=== PATIENT | male | born 1935 | race Caucasian/White ===

== ENCOUNTER 2020-04-14 11:59 | Inpatient (IN) | payer MEDICARE, BC ==
[~2020-04-14] VITALS: Ht 167.6 cm; Wt 88.5 kg
[2020-04-14 14:39] VITALS: BP 133/70
[2020-04-14] MEDS ORDERED: MAGNESIUM HYDROXIDE 2,400 MG/30 ML ORAL.SUSP. PO PRN (15:00)
[2020-04-14] MEDS ORDERED: METHYL SALICYLATE/MENTHOL TOPICAL OINTMENT 57GM TUBE. TP PRN (15:00)
[2020-04-14] MEDS ORDERED: ACETAMINOPHEN 325 MG TABLET PO PRN (15:00)
[2020-04-14] MEDS ORDERED: MAG HYDROX/AL HYDROX/SIMETH 30 ML ORAL.SUSP PO PRN (15:00)
[2020-04-14] MEDS ORDERED: COLCHICINE 0.6 MG TABLET. PO PRN (15:30)
[2020-04-14] MEDS ORDERED: DICLOFENAC SODIUM 1% TOPICAL GEL 100GM TUBE. TP PRN (15:30)
[2020-04-14] MEDS ORDERED: NITROGLYCERIN SUBLINGUAL 0.4 MG BOTTLE OF 25. SL PRN (15:30)
[2020-04-14] MEDS ORDERED: LEXAPRO20 MG PO (15:59)
[2020-04-14] MEDS ORDERED: ARIP2TAB35 PO (16:13)
[2020-04-14] MEDS ORDERED: OMEG-33 PO (16:13)
[2020-04-14] MEDS ORDERED: LEVO100T5 PO (16:13)
[2020-04-14] MEDS ORDERED: UBID10CA5 PO (16:13)
[2020-04-14] MEDS ORDERED: ASPI-889 PO (16:13)
[2020-04-14] MEDS ORDERED: CHLO25TA9 PO (16:13)
[2020-04-14] MEDS ORDERED: BUPR150T15 PO (16:13)
[2020-04-14] MEDS ORDERED: AMLO-187 PO (16:13)
[2020-04-14] MEDS ORDERED: METO100T7 PO (16:13)
[2020-04-14] MEDS ORDERED: ALLO100T PO (16:13)
[2020-04-14] MEDS ORDERED: CLOP75TA PO (16:13)
[2020-04-14] MEDS ORDERED: FINA5TAB4 PO (16:13)
[2020-04-14] MEDS ORDERED: LOSA100T14 PO (16:13)
[2020-04-14] MEDS ORDERED: AZEL137S3 NS (16:13)
[2020-04-14 18:19] LABS: ALBUMIN 3.6 g/dL (3.4-5.0); ALBUMIN/GLOBULIN RATIO 0.8 (1.0-1.7); CALCIUM 8.7 mg/dL (8.5-10.1); CREATININE 1.8 mg/dL (0.7-1.3); GFR 36.3; MAGNESIUM 2.1 mg/dL (1.8-2.4); POTASSIUM 4.2 mmol/L (3.5-5.1); TOTAL BILIRUBIN 0.3 mg/dL (0.2-1.0); TOTAL PROTEIN 8.1 g/dL (6.4-8.2)
[2020-04-14 18:20] LABS: BASO % 1 % (0-3); EOS # 0.1 x10^3/uL (0.0-0.7); EOS % 2 % (0-3); HEMATOCRIT 35.6 % (39.0-53.0); HEMOGLOBIN 11.9 g/dL (13.0-17.5); LYMPH # 1.3 x10^3/uL (1.0-4.8); LYMPH % 19 % (24-48); MEAN CORPUSCULAR HEMOGLOBIN 34 pg (25-35); MEAN CORPUSCULAR HGB CONC 34 g/dL (31-37); MEAN CORPUSCULAR VOLUME 101 fL (79-100); MONO # 0.5 x10^3/uL (0.0-1.1); MONO % 7 % (0-9); NEUT # 4.9 x10^3uL (1.8-7.7); NEUT % 72 % (31-73); PLATELET COUNT 203 x10^3/uL (140-400); RED BLOOD COUNT 3.54 x10^6/uL (4.30-5.70); RED CELL DISTRIBUTION WIDTH 14.4 % (11.5-14.5); WHITE BLOOD COUNT 6.8 x10^3/uL (4.0-11.0)
--- NOTE | 2020-04-14 20:22 | EKG ---
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
[2020-04-14] MEDS: ALLOPURINOL 100 MG TABLET. PO SCH (20:51)
[2020-04-14] MEDS: clonazePAM 0.5 MG TABLET PO SCH (20:51)
[2020-04-14] MEDS: CLOPIDOGREL BISULFATE 75 MG TABLET PO SCH (20:51)
[2020-04-14] MEDS: MELATONIN 3 MG TABLET PO PRN (20:51)
[2020-04-14] MEDS ORDERED: QUEtiapine 50 MG TABLET. PO SCH (21:00)
[2020-04-14] MEDS: AZELASTINE NASAL SPRAY 30ML BOTTLE. NS SCH (21:00)
--- NOTE | 2020-04-14 21:08 | PDOC ---
Exam Note: Miguel Note: Please also refer to the separate dictated note~for this date of service dictated separately.~Patient seen individually. Discussed the patient with Nursing staff reviewed the chart.~Reviewed interim history and current functioning. Reviewed vital signs,~Labs/ Radiology~and current medications noted below. Continue current treatment with the changes noted in the dictated addendum note Assessment: Vital Signs/I&O: Vital Signs Date Time Temp Pulse Resp B/P (MAP) Pulse Ox O2 Delivery O2 Flow Rate FiO2 04/14/20 14:39 97.5 63 17 133/70 (91) 100 Labs: Laboratory Tests Test 04/14/20 17:41 White Blood Count 6.8 x10^3/uL (4.0-11.0) Red Blood Count 3.54 x10^6/uL (4.30-5.70) L Hemoglobin 11.9 g/dL (13.0-17.5) L Hematocrit 35.6 % (39.0-53.0) L Mean Corpuscular Volume 101 fL (79-100) H Mean Corpuscular Hemoglobin 34 pg (25-35) Mean Corpuscular Hemoglobin Concent 34 g/dL (31-37) Red Cell Distribution Width 14.4 % (11.5-14.5) Platelet Count 203 x10^3/uL (140-400) Neutrophils (%) (Auto) 72 % (31-73) Lymphocytes (%) (Auto) 19 % (24-48) L Monocytes (%) (Auto) 7 % (0-9) Eosinophils (%) (Auto) 2 % (0-3) Basophils (%) (Auto) 1 % (0-3) Neutrophils # (Auto) 4.9 x10^3uL (1.8-7.7) Lymphocytes # (Auto) 1.3 x10^3/uL (1.0-4.8) Monocytes # (Auto) 0.5 x10^3/uL (0.0-1.1) Eosinophils # (Auto) 0.1 x10^3/uL (0.0-0.7) Basophils # (Auto) 0.0 x10^3/uL (0.0-0.2) D-Dimer (Nara) 1.16 mg/L (0.00-0.50) H Sodium Level 137 mmol/L (136-145) Potassium Level 4.2 mmol/L (3.5-5.1) Chloride Level 104 mmol/L (98-107) Carbon Dioxide Level 25 mmol/L (21-32) Anion Gap 8 (6-14) Blood Urea Nitrogen 23 mg/dL (8-26) Creatinine 1.8 mg/dL (0.7-1.3) H Estimated GFR (Cockcroft-Gault) 36.3 BUN/Creatinine Ratio 13 (6-20) Glucose Level 129 mg/dL (70-99) H Calcium Level 8.7 mg/dL (8.5-10.1) Magnesium Level 2.1 mg/dL (1.8-2.4) Total Bilirubin 0.3 mg/dL (0.2-1.0) Aspartate Amino Transferase (AST) 28 U/L (15-37) Alanine Aminotransferase (ALT) 32 U/L (16-63) Alkaline Phosphatase 83 U/L (46-116) Total Protein 8.1 g/dL (6.4-8.2) Albumin 3.6 g/dL (3.4-5.0) Albumin/Globulin Ratio 0.8 (1.0-1.7) L Current Medications: Meds: Current Medications Medications (Trade) Dose Ordered Sig/Afshin Route PRN Reason Start Time Stop Time Status Last Admin Dose Admin Allopurinol (Zyloprim) 100 mg HS PO 04/14/20 21:00 04/14/20 20:51 Clopidogrel Bisulfate (Plavix) 75 mg QHS PO 04/14/20 21:00 04/14/20 20:51 Melatonin (Melatonin) 3 mg PRN QHS PRN PO INSOMNIA 04/14/20 15:30 04/14/20 20:51 Clonazepam (KlonoPIN) 0.25 mg BID PO 04/14/20 21:00 04/14/20 20:51 I have reviewed the current psychotropics carefully including drug interactions. Risk benefit ratio favors no change other than as noted in my dictated progress note. Diagnosis: Problems: (1) Major neurocognitive disorder RENITA SAGASTUME MD Apr 14, 2020 21:08
--- NOTE | 2020-04-14 22:29 | HP ---
ADMIT DATE: 04/14/2020 PSYCHIATRIC ADMISSION HISTORY/EVALUATION On telehealth services. IDENTIFYING DATA: The patient is an 84-year-old male referred to us from [facility], a small residential facility by his primary care physician on account of worsening confusion within the context of his diagnosis of major neurocognitive disorder, Alzheimer vascular with delusion, depression, behavioral disturbance. The patient has reportedly attempted to elope from the home, is delusional, paranoid, thinks he is being held prisoner. He has been threatening to harm the staff, agitated, exit seeking, having marked insomnia and sundowning. Behaviors have been worsening, unmanageable at the facility regardingthis referral. He has failed outpatient psychiatric interventions. CHIEF COMPLAINT: "No." HISTORY OF PRESENT ILLNESS: The patient has a history of dementia, Alzheimer's vascular type. He has been residing at the above facility for some time, recently getting more confused, agitated. He has had sleep changes, marked paranoia, significant mood lability, disruptive behaviors that have been dangerous, unmanageable. PAST PSYCHIATRIC HISTORY: As above. MEDICAL HISTORY: Positive for hypertension, stage 3 chronic kidney disease, hyperlipidemia, pacemaker in place, hypothyroidism, history of pneumonia, REM, sleep disorder, polymyalgia rheumatica, nasal lesion, myalgia, gout, gait instability, prediabetes, coronary artery disease, history of NH, history of sepsis, BPH, oropharyngeal dysphagia, chronic right hip pain, malnutrition, history of back surgeries, total hip replacement. ACCU-CHEKS: None. DIET: Cardiac. Takes medications whole, ambulates independently. CURRENT PSYCHOTROPICS: Lexapro 20 mg a day, Seroquel 25 mg at bedtime, Abilify 2 mg a day, Wellbutrin-XL 150 mg a day, melatonin 3 mg at bedtime, Klonopin 0.25 mg b.i.d. FAMILY HISTORY: Noncontributory. SOCIAL HISTORY: No history of alcohol, drug abuse, physical, sexual or elder abuse. He is not known to be a perpetrator. REACTION TO HOSPITALIZATION: The patient oblivious of this. ASSETS: Supportive family, stable living at the above facility. REVIEW OF SYSTEMS: No CV, , pulmonary, eye, ENT system symptoms on review. Reliability poor. MENTAL STATUS EXAMINATION: The patient is oriented to himself. Insight, judgment, recent and remote memory, attention, concentration, fund of knowledge poor, consistent with his diagnosis. IMPRESSION: Major neurocognitive disorder, Alzheimer vascular with delusion, depression, behavioral disturbance; anxiety disorder, unspecified; impulse control disorder, unspecified. Rest unchanged from admission noted above. PLAN: Admit to Geropsychiatry Unit at [facility]. I will see the patient daily individually from a psychiatric standpoint. Medical followup per Dr. Kraus/Dr. Gottlieb. Continue the patient on his current psychotropics. Consider tapering the Klonopin since it could be causing paradoxical disinhibition as the benzodiazepine. Consider Depakote as a mood stabilizer. We will consider other options as clinically indicated post baseline assessment. ESTIMATED LENGTH OF STAY: 10-12 days. DISPOSITION: Plans back to [facility] when stable. MAN Rosio SAGASTUME MD DR: DALJIT/bruce JOB#: [id number] / [id number]
[2020-04-15 01:09] LABS: HEMOGLOBIN A1C 6.2 % (4.8-5.6)
[2020-04-15] MEDS: LEVOTHYROXINE 100 MCG TABLET PO SCH (05:37)
[2020-04-15 05:56] LABS: BILIRUBIN,URINE NEG (NEG); CLARITY,URINE CLEAR; COLOR,URINE YELLOW; GLUCOSE,URINE NEG (NEG); UROBILINOGEN,URINE 0.2 mg/dL (0.2 mg/dL)
[2020-04-15 05:57] LABS: BACTERIA,URINE 0 /HPF (0-FEW); NITRITE,URINE NEG (NEG); RBC,URINE 0 /HPF (0-2); SQUAMOUS EPITHELIAL CELL,UR OCC /LPF; WBC,URINE OCC /HPF (0-4)
[2020-04-15 06:18] VITALS: BP 170/90
[2020-04-15] MEDS: AZELASTINE NASAL SPRAY 30ML BOTTLE. NS SCH ×2 (09:00→21:00)
[2020-04-15] MEDS: FINASTERIDE 5 MG TABLET. PO SCH (09:11)
[2020-04-15] MEDS: OMEGA-3 FATTY ACIDS/FISH OIL 1,000 MG CAPSULE. PO SCH (09:11)
[2020-04-15] MEDS: ARIPiprazole 2 MG TABLET PO SCH (09:11)
[2020-04-15] MEDS: ASPIRIN CHEWABLE 81 MG TABLET. PO SCH (09:11)
[2020-04-15] MEDS: clonazePAM 0.5 MG TABLET PO SCH ×2 (09:12→21:15)
[2020-04-15] MEDS: amLODIPine BESYLATE 10 MG TABLET PO SCH (09:12)
[2020-04-15] MEDS: buPROPion XL 150 MG TAB.ER.24H PO SCH (09:12)
[2020-04-15] MEDS: METOPROLOL SUCC 24HR ER 50 MG TAB.ER.24H. PO SCH (09:12)
[2020-04-15] MEDS: UBIDECARENONE 50 MG CAPSULE. PO SCH (09:12)
[2020-04-15] MEDS: LOSARTAN 50 MG TABLET. PO SCH (09:12)
[2020-04-15] MEDS: CHLORTHALIDONE 25 MG TABLET PO SCH (09:21)
--- NOTE | 2020-04-15 12:28 | TX PLAN ---
Interdisciplinary Tx Plan Admission Information Apr 14, 2020 at 14:03 Legal Status (on Admission): Voluntary DPOA/Guardian Name: -Marlene Carpenter and Son-Damian "Elias or Kaylee Carpenter Contact Phone Number: Tanner [phone] SonWill [phone] Other Contact Name: Cora Brooks Other Contact Verified Code Status: DNR Allergies: Coded Allergies: No Known Drug Allergies (Unverified , 04/14/20) Diagnoses Primary Diagnosis: Major neurocognitive disorder, Alzheimer vascular with delusion, depression, behavioral disturbance; anxiety disorder, unspecified; impulse control disorder, unspecified. Reasons for Admission: Aggressive, Delusions, Agitated, Sig. Change Sleep, Angry, Combative, Confusion/Disoriented, Poor impulse control Problem in Patient's Words: Per facility pt has had a couple of falls, has threatening behavior toward other residents and staff. He has been exit seeking. Pt has eloped from his facility and the police brought him back. Per pt , Marlene. Pt is mad at her and their son, Elias, for putting him in a facility. He is very aggressive and thinks that everyone is kidnapped and is in shelter. Additional Admission Comments: Per [facility]ak record, pt thinks he has been kidnapped and is in shelter. He is paranoid, delusional. He eloped from the facility in which he lives and police brought him back. Pt has been threatening harm to staff. He is agitated, exit seeking, has insomnia, and sundowns. Problems Active Problems: Aggression, delusions, agitation, combative, confused Inactive Problems: None noted at this time. Pt Strengths/Limitations Ability for [place]: Poor Cognitive Functioning/Ability: Poor Communication Skills/Ability: Fair Financial Resources: Good Insight/Judgement: Poor Intellectual Ability: Good Physical Health: Fair Social Skills: Fair Stability in Family: Excellent Stability in School/Work: Good Verbal Skills: Good Discharge Criteria Discharge Criteria: Able meet basic life need, Adequate arrangements @DC, Adequate self-care, Verbal commit med comply, Improved behavior Other Discharge Comments: None noted at this time. Preliminary Discharge Plan Preliminary DC Plan: Memory Care Special Precautions Fall Risk: High Initial D/C Plan Pt plan is to return to [facility] memory care facility. Identified Discharge Needs: Follow-up with PCP Currently Utilized Resources Currently Utilized Resources/P: PCP is Dr. Fadi Garrison DPOA is Marlene and alternate son Damian alfred "Elias or Fernando" Financial DPOA is dtr Miladis Living facility is [facility]; contact is Cora Brooks Referrals Community Resources: None noted at this time Identified Problems/Hx/Goals Objectives/Short-Term Goals Short Term Goals: Control abnormal behavior, Dec. Aggression, Dec. Hallucination/Delus, Dec. Symp. Depression, Medication Stabilization, Monitor Med Effects, Prevent Deterioration, Promote Coping Skill Short Term Goals in Patient's: Reduce aggression and delusions. Improve or preserve quality of life. Interventions/Frequency Staff Interventions/Frequency&: Psychiatry to assess pt three times per week for medication management. Nursing to assess behaviors, monitor medications, and complete 15 minute checks daily. Social work to see pt at least twice weekly to aid in return to placement. Activities to encourage pt to participate in group activities daily. History Vocational History: After pt graduated high school, he moved to [place] and worked for the [employer] team. 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 Education: Four years of college. Pt attended [employer] for four years and played football there. Community Follow-up PCP Community Provider/Family Inpu: Marlene, /DPOA, and Elias, son/DPOA, are actively involved with pt care and would like updates a couple times per week. Treatment Plan Explained Patient/Retouching Operator had this treatment plan explained to him/her as indicated by the signature below and has been given the opportunity to ask questions and make suggestions: Date: Patient/Retouching Operator Signature: GIORGIO PLAZA Apr 15, 2020 12:28
--- NOTE | 2020-04-15 16:30 | RAD ---
STUDY: CT head without contrast INDICATION: Baseline establishment. COMPARISON: None. TECHNIQUE: Axial CT imaging through the head without the use of intravenous contrast. Sagittal and co kiesha reformats were obtained. One or more of the following individualized dose reduction techniques were utilized for this examinat ion: 1. Automated exposure control 2. Adjustment of the mA and/or kV according to patient size 3. Use of iterative reconstruction technique. FINDINGS: No acute intracranial hemorrhage. Arizmendi-white matter differentiation is maintained and the deep arizmendi n uclei are well delineated. No localized mass effect, midline shift or hydrocephalus. Parenchymal volume loss with a component of ex vacuo ventricular prominence. White matter findings mo st often seen in the setting of chronic microvascular ischemic change. Intracranial calcific atherosc lerosis. Unremarkable scalp and orbits. Trace maxillary sinus mucosal thickening without layering fluid. No si gnificant mastoid air cell opacification. Intact calvarium. IMPRESSION: 1. No acute intracranial abnormality by CT. 2. Chronic/senescent observations detailed in the body the report. Electronically signed by: DEBBIE PADRON MD (04/15/2020 4:28 PM) [id number]
[2020-04-15 16:55] VITALS: BP 135/91
--- NOTE | 2020-04-15 17:39 | CONS ---
DATE OF CONSULTATION: 04/15/2020 ATTENDING PHYSICIAN: Dr. Perez. HISTORY OF PRESENT ILLNESS: We are asked to see this gentleman for medical consultation. 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 He moved to [place] in 1964 when the [facility] [place] [employer]. He has been doing fairly well, but he has been in decline last February. He was admitted to a local snf. His still lives in the house that he grew up, his son and I went to high school together. He is very alert and cooperative, but he has definite cognitive issues. He is admitted then for major neurocognitive disorder. PAST MEDICAL HISTORY: Significant for essential hypertension, hypothyroidism and cognitive issues. CURRENT MEDICATIONS: Include allopurinol, amlodipine, Abilify, aspirin, bupropion, chlorthalidone, Plavix, citalopram, finasteride, Synthroid, losartan, metoprolol, omega 3 fish oil and CoQ10. ALLERGIES: He has no recorded drug allergies. SOCIAL HISTORY: Social drinker. He does not smoke. OTHER MEDICAL HISTORY: Includes coronary artery disease and permanent pacemaker. FAMILY HISTORY: Unobtainable. REVIEW OF SYSTEMS: Unobtainable due to the patient's confusion. He has been quite paranoid, delusional, thinks he is being kidnapped. All other systems reviewed and turned to be negative. PHYSICAL EXAMINATION: GENERAL: When I saw him, this is a pleasant elderly gentleman. He walks with the help of a walker independently. INITIAL VITAL SIGNS: Showed a blood pressure of 133/70, pulse is 63 and regular, temperature 97.5 degrees Fahrenheit, oxygen saturation 100% on room air. HEENT: The head is without trauma. Pupils are reactive. Sclerae nonicteric. The oropharynx is clear. NECK: Supple, no bruits identified. LUNGS: Good breath sounds, otherwise clear. CARDIOVASCULAR: Showed regular heart tones. No gallops. ABDOMEN: Soft, no guarding, rebound tenderness. EXTREMITIES: Showed no cyanosis or edema. NEUROLOGIC: Pleasantly confused. Speech is fluent. He is fully ambulatory. We could not assess the rest of the neurologic exam due to the patient's inability to comprehend the orders. PERTINENT LABORATORY STUDIES: Admission hemoglobin was 11.9 g/dL with white count 6800. Electrolytes within range. Creatinine is slightly elevated at 1.8 mg/dL. Hemoglobin A1c 6.2. ASSESSMENT: 1. This 84-year-old gentleman, retired [employer] general sales manager has profound dementia. 2. Neurocognitive deficit. 3. Some delusional behavior with paranoia. 4. Essential hypertension. 5. Hypothyroidism, on replacement. RECOMMENDATIONS: 1. The patient is stable from the medical standpoint. 2. I reviewed his home medication. We should continue this without any changes. Thank you again for asking me to see this patient for medical consultation. We will certainly follow with you closely during his inpatient stay. NICK ROY MD DR: CHRISS/bruce JOB#: [id number] / [id number] RENITA Foster MD
[2020-04-15 18:43] LABS: THYROID STIM HORMONE (TSH) 3.229 uIU/mL (0.358-3.740)
[2020-04-15] MEDS: ALLOPURINOL 100 MG TABLET. PO SCH (21:15)
[2020-04-15] MEDS: CLOPIDOGREL BISULFATE 75 MG TABLET PO SCH (21:15)
--- NOTE | 2020-04-15 21:18 | PDOC ---
Exam Note: Miguel Note: Please also refer to the separate dictated note~for this date of service dictated separately.~Patient seen individually. Discussed the patient with Nursing staff reviewed the chart.~Reviewed interim history and current functioning. Reviewed vital signs,~Labs/ Radiology~and current medications noted below. Continue current treatment with the changes noted in the dictated addendum note Assessment: Vital Signs/I&O: Vital Signs Date Time Temp Pulse Resp B/P (MAP) Pulse Ox O2 Delivery O2 Flow Rate FiO2 04/15/20 16:55 96.3 78 20 135/91 (106) 100 Room Air I & O 04/14/20 04/14/20 04/15/20 14:59 22:59 06:59 Intake Total 120 ml 120 ml Balance 120 ml 120 ml Labs: Laboratory Tests Test 04/15/20 05:30 04/15/20 08:00 Urine Collection Type Unknown Urine Color Yellow Urine Clarity Clear Urine pH 5.5 Urine Specific [place] 1.015 Urine Protein Neg (NEG-TRACE) Urine Glucose (UA) Neg mg/dL (NEG) Urine Ketones (Stick) Neg mg/dL (NEG) Urine Blood Neg (NEG) Urine Nitrite Neg (NEG) Urine Bilirubin Neg (NEG) Urine Urobilinogen Dipstick 0.2 mg/dL (0.2 mg/dL) Urine Leukocyte Esterase Neg (NEG) Urine RBC 0 /HPF (0-2) Urine WBC Occ /HPF (0-4) Urine Squamous Epithelial Cells Occ /LPF Urine Bacteria 0 /HPF (0-FEW) Glucose (Fingerstick) 96 mg/dL (70-99) Current Medications: Meds: Laboratory Tests Test 04/15/20 05:30 04/15/20 08:00 Urine Collection Type Unknown Urine Color Yellow Urine Clarity Clear Urine pH 5.5 Urine Specific [place] 1.015 Urine Protein Neg Urine Glucose (UA) Neg mg/dL Urine Ketones (Stick) Neg mg/dL Urine Blood Neg Urine Nitrite Neg Urine Bilirubin Neg Urine Urobilinogen Dipstick 0.2 mg/dL Urine Leukocyte Esterase Neg Urine RBC 0 /HPF Urine WBC Occ /HPF Urine Squamous Epithelial Cells Occ /LPF Urine Bacteria 0 /HPF Glucose (Fingerstick) 96 mg/dL Current Medications Medications (Trade) Dose Ordered Sig/Afshin Route PRN Reason Start Time Stop Time Status Last Admin Dose Admin Acetaminophen (Tylenol) 650 mg PRN Q6HRS PRN PO MILD PAIN / TEMP > 100.3'F 04/14/20 15:00 Multi-Ingredient Ointment (Analgesic [place]) 1 aaron PRN QID PRN TP MUSCLE PAIN 04/14/20 15:00 Al Hydroxide/Mg Hydroxide (Mylanta Plus Xs) 15 ml PRN AFTMEALHC PRN PO DYSPEPSIA 04/14/20 15:00 Magnesium Hydroxide (Milk Of Magnesia) 2,400 mg PRN QHS PRN PO CONSTIPATION 04/14/20 15:00 Allopurinol (Zyloprim) 100 mg HS PO 04/14/20 21:00 04/15/20 21:15 Amlodipine Besylate (Norvasc) 10 mg DAILY PO 04/15/20 09:00 04/15/20 09:12 Aripiprazole (Abilify) 2 mg DAILY PO 04/15/20 09:00 04/15/20 09:11 Aspirin (Aspirin Chewable) 81 mg DAILYWBKFT PO 04/15/20 08:00 04/15/20 09:11 Azelastine HCl (Astelin) 2 spray BID NS 04/14/20 21:00 04/15/20 21:00 Bupropion HCl (Wellbutrin Xl) 150 mg DAILY PO 04/15/20 09:00 04/15/20 09:12 Chlorthalidone (Thalitone) 25 mg DAILY PO 04/15/20 09:00 04/15/20 09:21 Clopidogrel Bisulfate (Plavix) 75 mg QHS PO 04/14/20 21:00 04/15/20 21:15 Coenzyme Q10 (Coenzyme Q10) 50 mg DAILY PO 04/15/20 09:00 04/15/20 09:12 Finasteride (Proscar) 5 mg DAILY PO 04/15/20 09:00 04/15/20 09:11 Levothyroxine Sodium (Synthroid) 100 mcg DAILY06 PO 04/15/20 06:00 04/15/20 05:37 Losartan Potassium (Cozaar) 50 mg DAILY PO 04/15/20 09:00 04/15/20 09:12 Metoprolol Succinate (Toprol Xl) 100 mg DAILY PO 04/15/20 09:00 04/15/20 09:12 Fish Oil (Fish Oil) 1,000 mg DAILY PO 04/15/20 09:00 04/15/20 09:11 Quetiapine Fumarate (SEROquel) 50 mg QHS PO 04/14/20 21:00 04/14/20 16:15 DC Vitamin D (Vitamin D3) 50,000 unit WEEKLY PO 04/21/20 09:00 Colchicine (Colcrys) 0.6 mg PRN DAILY PRN PO for GOUT pain 04/14/20 15:30 Diclofenac Sodium (Voltaren) 1 aaron PRN QID PRN TP PAIN 04/14/20 15:30 Nitroglycerin (Nitrostat) 0.4 mg PRN Q5MIN PRN SL CHEST PAIN 04/14/20 15:30 Melatonin (Melatonin) 3 mg PRN QHS PRN PO INSOMNIA 04/14/20 15:30 04/14/20 20:51 Clonazepam (KlonoPIN) 0.25 mg BID PO 04/14/20 21:00 04/15/20 15:46 DC 04/15/20 09:12 Clonazepam (KlonoPIN) 0.25 mg QHS PO 04/15/20 21:00 04/17/20 23:00 04/15/20 21:15 Sertraline HCl (Zoloft) 50 mg DAILY PO 04/16/20 09:00 Current Medications Medications (Trade) Dose Ordered Sig/Afshin Route PRN Reason Start Time Stop Time Status Last Admin Dose Admin Amlodipine Besylate (Norvasc) 10 mg DAILY PO 04/15/20 09:00 04/15/20 09:12 Aripiprazole (Abilify) 2 mg DAILY PO 04/15/20 09:00 04/15/20 09:11 Aspirin (Aspirin Chewable) 81 mg DAILYWBKFT PO 04/15/20 08:00 04/15/20 09:11 Bupropion HCl (Wellbutrin Xl) 150 mg DAILY PO 04/15/20 09:00 04/15/20 09:12 Chlorthalidone (Thalitone) 25 mg DAILY PO 04/15/20 09:00 04/15/20 09:21 Coenzyme Q10 (Coenzyme Q10) 50 mg DAILY PO 04/15/20 09:00 04/15/20 09:12 Finasteride (Proscar) 5 mg DAILY PO 04/15/20 09:00 04/15/20 09:11 Levothyroxine Sodium (Synthroid) 100 mcg DAILY06 PO 04/15/20 06:00 04/15/20 05:37 Losartan Potassium (Cozaar) 50 mg DAILY PO 04/15/20 09:00 04/15/20 09:12 Metoprolol Succinate (Toprol Xl) 100 mg DAILY PO 04/15/20 09:00 04/15/20 09:12 Fish Oil (Fish Oil) 1,000 mg DAILY PO 04/15/20 09:00 04/15/20 09:11 Clonazepam (KlonoPIN) 0.25 mg QHS PO 04/15/20 21:00 04/17/20 23:00 04/15/20 21:15 I have reviewed the current psychotropics carefully including drug interactions. Risk benefit ratio favors no change other than as noted in my dictated progress note. Diagnosis: Problems: (1) Dementia in Alzheimer's disease with delusions (2) Dementia in Alzheimer's disease with depression (3) Dementia of the Alzheimer's type with early onset with behavioral disturbance (4) Dementia, vascular, with delusions (5) Dementia, vascular, with depression (6) Anxiety disorder, unspecified (7) Impulse control disorder, unspecified (8) Major neurocognitive disorder RENITA SAGASTUME MD Apr 15, 2020 21:18
[2020-04-16] MEDS: LEVOTHYROXINE 100 MCG TABLET PO SCH (05:08)
[2020-04-16 06:19] VITALS: BP 128/85
--- NOTE | 2020-04-16 08:00 | PDOC ---
Exam Note: Miguel Note: This note is a late entry for 04/15/2020 covers elements not covered in my initial note. Subjective: The patient was reviewed on telehealth rounds in the evening of 04/15/2020. Discussed with nursing staff, reviewed the chart. He slept 5-3/4 hours previous night. The patient was also staffed at treatment team meeting with entire team in the morning with Damaris Dunn, Evy Garg (social service staff) [place], activity therapy, and Marilee BAY. We have reviewed the patients history at some length and he has had symptoms of progressive memory deficits. 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 He went to high school in [place], [place], then attended [employer] and played football and then retired 30 years ago after being a manager hotel for the [employer]. 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 We will consider having neuropsychological testing with Dr. Wang to further define his cognitive deficits. CT head clinically insignificant. Review of Systems: No CV, , pulmonary, eye, ENT system symptoms on review. Reliability poor. Mental Status Exam: The patient is oriented to himself. He is paranoid, somewhat drowsy at times. Insight and judgment, recent and remote memory, attention and concentration, fund of knowledge is poor consistent with his diagnosis. Laboratory Data: Reviewed. Impression: Major neurocognitive disorder Alzheimer vascular with delusion, depression, behavioral disturbance. Anxiety disorder unspecified. Impulse control disorder unspecified. Plan: Change Celexa to Zoloft 50 mg a day. Maintain Seroquel, Abilify, Wellbutrin, melatonin, Klonopin. We will go ahead taper and stop the Klonopin. Adjust further as clinically indicated. Assessment: Vital Signs/I&O: Vital Signs Date Time Temp Pulse Resp B/P (MAP) Pulse Ox O2 Delivery O2 Flow Rate FiO2 04/16/20 06:19 97.8 76 24 128/85 (99) 94 04/15/20 16:55 Room Air I & O 04/15/20 04/15/20 04/16/20 14:59 22:59 06:59 Intake Total 600 ml 480 ml Balance 600 ml 480 ml Labs: Laboratory Tests Test 04/15/20 08:00 04/16/20 07:17 Glucose (Fingerstick) 96 mg/dL (70-99) 86 mg/dL (70-99) Current Medications: Meds: Current Medications Medications (Trade) Dose Ordered Sig/Afshin Route PRN Reason Start Time Stop Time Status Last Admin Dose Admin Amlodipine Besylate (Norvasc) 10 mg DAILY PO 04/15/20 09:00 04/15/20 09:12 Aripiprazole (Abilify) 2 mg DAILY PO 04/15/20 09:00 04/15/20 09:11 Aspirin (Aspirin Chewable) 81 mg DAILYWBKFT PO 04/15/20 08:00 04/15/20 09:11 Bupropion HCl (Wellbutrin Xl) 150 mg DAILY PO 04/15/20 09:00 04/15/20 09:12 Chlorthalidone (Thalitone) 25 mg DAILY PO 04/15/20 09:00 04/15/20 09:21 Coenzyme Q10 (Coenzyme Q10) 50 mg DAILY PO 04/15/20 09:00 04/15/20 09:12 Finasteride (Proscar) 5 mg DAILY PO 04/15/20 09:00 04/15/20 09:11 Losartan Potassium (Cozaar) 50 mg DAILY PO 04/15/20 09:00 04/15/20 09:12 Metoprolol Succinate (Toprol Xl) 100 mg DAILY PO 04/15/20 09:00 04/15/20 09:12 Fish Oil (Fish Oil) 1,000 mg DAILY PO 04/15/20 09:00 04/15/20 09:11 Clonazepam (KlonoPIN) 0.25 mg QHS PO 04/15/20 21:00 04/17/20 23:00 04/15/20 21:15 I have reviewed the current psychotropics carefully including drug interactions. Risk benefit ratio favors no change other than as noted in my dictated progress note. Diagnosis: Problems: (1) Major neurocognitive disorder (2) Impulse control disorder, unspecified (3) Anxiety disorder, unspecified (4) Dementia, vascular, with depression (5) Dementia, vascular, with delusions (6) Dementia in Alzheimer's disease with depression (7) Dementia in Alzheimer's disease with delusions (8) Dementia of the Alzheimer's type with early onset with behavioral disturbance RENITA SAGASTUME MD Apr 16, 2020 08:00
[2020-04-16] MEDS: buPROPion XL 150 MG TAB.ER.24H PO SCH (09:58)
[2020-04-16] MEDS: LOSARTAN 50 MG TABLET. PO SCH (09:58)
[2020-04-16] MEDS: CHLORTHALIDONE 25 MG TABLET PO SCH (09:58)
[2020-04-16] MEDS: OMEGA-3 FATTY ACIDS/FISH OIL 1,000 MG CAPSULE. PO SCH (09:58)
[2020-04-16] MEDS: amLODIPine BESYLATE 10 MG TABLET PO SCH (10:00)
[2020-04-16] MEDS: UBIDECARENONE 50 MG CAPSULE. PO SCH (10:00)
[2020-04-16] MEDS: FINASTERIDE 5 MG TABLET. PO SCH (10:00)
[2020-04-16] MEDS: ARIPiprazole 2 MG TABLET PO SCH (10:00)
[2020-04-16] MEDS: ASPIRIN CHEWABLE 81 MG TABLET. PO SCH (10:00)
[2020-04-16] MEDS: METOPROLOL SUCC 24HR ER 50 MG TAB.ER.24H. PO SCH (10:00)
[2020-04-16] MEDS: AZELASTINE NASAL SPRAY 30ML BOTTLE. NS SCH ×2 (10:02→20:25)
[2020-04-16] MEDS: SERTRALINE 25 MG TABLET. PO SCH (10:02)
[2020-04-16 16:13] VITALS: BP 120/68
[2020-04-16 17:11] LABS: COLOR,URINE YELLOW
[2020-04-16 17:12] LABS: BACTERIA,URINE 0 /HPF (0-FEW); BILIRUBIN,URINE NEG (NEG); CLARITY,URINE CLEAR; GLUCOSE,URINE NEG (NEG); NITRITE,URINE NEG (NEG); RBC,URINE 0 /HPF (0-2); UROBILINOGEN,URINE 0.2 mg/dL (0.2 mg/dL); WBC,URINE 0 /HPF (0-4)
[2020-04-16] MEDS: CLOPIDOGREL BISULFATE 75 MG TABLET PO SCH (20:24)
[2020-04-16] MEDS: ALLOPURINOL 100 MG TABLET. PO SCH (20:24)
[2020-04-16] MEDS: clonazePAM 0.5 MG TABLET PO SCH (20:25)
--- NOTE | 2020-04-16 21:03 | PDOC ---
Exam Note: Miguel Note: Please also refer to the separate dictated note~for this date of service dictated separately.~Patient seen individually. Discussed the patient with Nursing staff reviewed the chart.~Reviewed interim history and current functioning. Reviewed vital signs,~Labs/ Radiology~and current medications noted below. Continue current treatment with the changes noted in the dictated addendum note Assessment: Vital Signs/I&O: Vital Signs Date Time Temp Pulse Resp B/P (MAP) Pulse Ox O2 Delivery O2 Flow Rate FiO2 04/16/20 16:13 97.2 60 20 120/68 (85) 98 04/15/20 16:55 Room Air I & O 04/15/20 04/15/20 04/16/20 15:00 23:00 07:00 Intake Total 600 ml 480 ml Balance 600 ml 480 ml Labs: Laboratory Tests Test 04/16/20 07:17 04/16/20 16:37 Glucose (Fingerstick) 86 mg/dL (70-99) Urine Collection Type Unknown Urine Color Yellow Urine Clarity Clear Urine pH 5.0 Urine Specific [place] 1.025 Urine Protein Neg (NEG-TRACE) Urine Glucose (UA) Neg mg/dL (NEG) Urine Ketones (Stick) Neg mg/dL (NEG) Urine Blood Neg (NEG) Urine Nitrite Neg (NEG) Urine Bilirubin Neg (NEG) Urine Urobilinogen Dipstick 0.2 mg/dL (0.2 mg/dL) Urine Leukocyte Esterase Neg (NEG) Urine RBC 0 /HPF (0-2) Urine WBC 0 /HPF (0-4) Urine Squamous Epithelial Cells None /LPF Urine Bacteria 0 /HPF (0-FEW) Current Medications: Meds: Laboratory Tests Test 04/16/20 07:17 04/16/20 16:37 Glucose (Fingerstick) 86 mg/dL Urine Collection Type Unknown Urine Color Yellow Urine Clarity Clear Urine pH 5.0 Urine Specific [place] 1.025 Urine Protein Neg Urine Glucose (UA) Neg mg/dL Urine Ketones (Stick) Neg mg/dL Urine Blood Neg Urine Nitrite Neg Urine Bilirubin Neg Urine Urobilinogen Dipstick 0.2 mg/dL Urine Leukocyte Esterase Neg Urine RBC 0 /HPF Urine WBC 0 /HPF Urine Squamous Epithelial Cells None /LPF Urine Bacteria 0 /HPF Current Medications Medications (Trade) Dose Ordered Sig/Afshin Route PRN Reason Start Time Stop Time Status Last Admin Dose Admin Acetaminophen (Tylenol) 650 mg PRN Q6HRS PRN PO MILD PAIN / TEMP > 100.3'F 04/14/20 15:00 Multi-Ingredient Ointment (Analgesic [place]) 1 aaron PRN QID PRN TP MUSCLE PAIN 04/14/20 15:00 Al Hydroxide/Mg Hydroxide (Mylanta Plus Xs) 15 ml PRN AFTMEALHC PRN PO DYSPEPSIA 04/14/20 15:00 Magnesium Hydroxide (Milk Of Magnesia) 2,400 mg PRN QHS PRN PO CONSTIPATION 04/14/20 15:00 Allopurinol (Zyloprim) 100 mg HS PO 04/14/20 21:00 04/16/20 20:24 Amlodipine Besylate (Norvasc) 10 mg DAILY PO 04/15/20 09:00 04/16/20 10:00 Aripiprazole (Abilify) 2 mg DAILY PO 04/15/20 09:00 04/16/20 17:08 DC 04/16/20 10:00 Aspirin (Aspirin Chewable) 81 mg DAILYWBKFT PO 04/15/20 08:00 04/16/20 10:00 Azelastine HCl (Astelin) 2 spray BID NS 04/14/20 21:00 04/16/20 20:25 Bupropion HCl (Wellbutrin Xl) 150 mg DAILY PO 04/15/20 09:00 04/16/20 09:58 Chlorthalidone (Thalitone) 25 mg DAILY PO 04/15/20 09:00 04/16/20 09:58 Clopidogrel Bisulfate (Plavix) 75 mg QHS PO 04/14/20 21:00 04/16/20 20:24 Coenzyme Q10 (Coenzyme Q10) 50 mg DAILY PO 04/15/20 09:00 04/16/20 10:00 Finasteride (Proscar) 5 mg DAILY PO 04/15/20 09:00 04/16/20 10:00 Levothyroxine Sodium (Synthroid) 100 mcg DAILY06 PO 04/15/20 06:00 04/16/20 05:08 Losartan Potassium (Cozaar) 50 mg DAILY PO 04/15/20 09:00 04/16/20 09:58 Metoprolol Succinate (Toprol Xl) 100 mg DAILY PO 04/15/20 09:00 04/16/20 10:00 Fish Oil (Fish Oil) 1,000 mg DAILY PO 04/15/20 09:00 04/16/20 09:58 Quetiapine Fumarate (SEROquel) 50 mg QHS PO 04/14/20 21:00 04/14/20 16:15 DC Vitamin D (Vitamin D3) 50,000 unit WEEKLY PO 04/21/20 09:00 Colchicine (Colcrys) 0.6 mg PRN DAILY PRN PO for GOUT pain 04/14/20 15:30 Diclofenac Sodium (Voltaren) 1 aaron PRN QID PRN TP PAIN 04/14/20 15:30 Nitroglycerin (Nitrostat) 0.4 mg PRN Q5MIN PRN SL CHEST PAIN 04/14/20 15:30 Melatonin (Melatonin) 3 mg PRN QHS PRN PO INSOMNIA 04/14/20 15:30 04/14/20 20:51 Clonazepam (KlonoPIN) 0.25 mg BID PO 04/14/20 21:00 04/15/20 15:46 DC 04/15/20 09:12 Clonazepam (KlonoPIN) 0.25 mg QHS PO 04/15/20 21:00 04/17/20 23:00 04/16/20 20:25 Sertraline HCl (Zoloft) 50 mg DAILY PO 04/16/20 09:00 04/16/20 10:02 Olanzapine (ZyPREXA ZYDIS) 2.5 mg PRN Q2HR PRN PO PSYCHOSIS 04/16/20 13:15 04/16/20 15:16 Quetiapine Fumarate (SEROquel) 12.5 mg TID@0900,1300,1700 PO 04/17/20 09:00 Current Medications Medications (Trade) Dose Ordered Sig/Afshin Route PRN Reason Start Time Stop Time Status Last Admin Dose Admin Sertraline HCl (Zoloft) 50 mg DAILY PO 04/16/20 09:00 04/16/20 10:02 Olanzapine (ZyPREXA ZYDIS) 2.5 mg PRN Q2HR PRN PO PSYCHOSIS 04/16/20 13:15 04/16/20 15:16 I have reviewed the current psychotropics carefully including drug interactions. Risk benefit ratio favors no change other than as noted in my dictated progress note. Diagnosis: Problems: (1) Major neurocognitive disorder (2) Impulse control disorder, unspecified (3) Anxiety disorder, unspecified (4) Dementia, vascular, with depression (5) Dementia, vascular, with delusions (6) Dementia in Alzheimer's disease with depression (7) Dementia in Alzheimer's disease with delusions (8) Dementia of the Alzheimer's type with early onset with behavioral disturbance RENITA SAGASTUME MD Apr 16, 2020 21:03
[2020-04-17] MEDS: LEVOTHYROXINE 100 MCG TABLET PO SCH (05:06)
[2020-04-17 06:40] VITALS: BP 134/70
--- NOTE | 2020-04-17 08:19 | PDOC ---
Exam Note: Miguel Note: This note is a late entry for 04/16/2020 covers elements not covered in my initial note. Subjective: The patient was reviewed on telehealth rounds in the evening of 04/16/2020 with Kendra BAY. Discussed with nursing staff, reviewed the chart. He slept 7 hours previous night. The patient has been wandering, exit seeking. He has received Zyprexa x2 for his agitation. [facility] nursing staff did call me earlier in the day as an emergency since he did not have any p.r.n. and may initiate Zyprexa p.r.n. and he has done better after that. Review of Systems: No CV, , pulmonary, eye, ENT system symptoms on review. Reliability poor. Mental Status Exam: The patient is oriented to himself. Insight and judgment, recent and remote memory, attention and concentration, fund of knowledge is poor consistent with his diagnosis. Laboratory Data: Reviewed. Impression: Major neurocognitive disorder Alzheimer vascular with delusion, depression, behavioral disturbance. Anxiety disorder unspecified. Impulse control disorder unspecified. Plan: Discontinue the Abilify. Change Seroquel to 12.5 mg t.i.d. Rest unchanged. Adjust further as clinically indicated. Assessment: Vital Signs/I&O: Vital Signs Date Time Temp Pulse Resp B/P (MAP) Pulse Ox O2 Delivery O2 Flow Rate FiO2 04/17/20 06:40 97.9 66 20 134/70 (91) 96 04/15/20 16:55 Room Air I & O 04/16/20 04/16/20 04/17/20 15:00 23:00 07:00 Intake Total 480 ml 480 ml Balance 480 ml 480 ml Labs: Laboratory Tests Test 04/16/20 16:37 04/17/20 08:05 Urine Collection Type Unknown Urine Color Yellow Urine Clarity Clear Urine pH 5.0 Urine Specific [place] 1.025 Urine Protein Neg (NEG-TRACE) Urine Glucose (UA) Neg mg/dL (NEG) Urine Ketones (Stick) Neg mg/dL (NEG) Urine Blood Neg (NEG) Urine Nitrite Neg (NEG) Urine Bilirubin Neg (NEG) Urine Urobilinogen Dipstick 0.2 mg/dL (0.2 mg/dL) Urine Leukocyte Esterase Neg (NEG) Urine RBC 0 /HPF (0-2) Urine WBC 0 /HPF (0-4) Urine Squamous Epithelial Cells None /LPF Urine Bacteria 0 /HPF (0-FEW) Glucose (Fingerstick) 91 mg/dL (70-99) Current Medications: Meds: Laboratory Tests Test 04/16/20 16:37 04/17/20 08:05 Urine Collection Type Unknown Urine Color Yellow Urine Clarity Clear Urine pH 5.0 Urine Specific [place] 1.025 Urine Protein Neg Urine Glucose (UA) Neg mg/dL Urine Ketones (Stick) Neg mg/dL Urine Blood Neg Urine Nitrite Neg Urine Bilirubin Neg Urine Urobilinogen Dipstick 0.2 mg/dL Urine Leukocyte Esterase Neg Urine RBC 0 /HPF Urine WBC 0 /HPF Urine Squamous Epithelial Cells None /LPF Urine Bacteria 0 /HPF Glucose (Fingerstick) 91 mg/dL Current Medications Medications (Trade) Dose Ordered Sig/Afshin Route PRN Reason Start Time Stop Time Status Last Admin Dose Admin Acetaminophen (Tylenol) 650 mg PRN Q6HRS PRN PO MILD PAIN / TEMP > 100.3'F 04/14/20 15:00 Multi-Ingredient Ointment (Analgesic [place]) 1 aaron PRN QID PRN TP MUSCLE PAIN 04/14/20 15:00 Al Hydroxide/Mg Hydroxide (Mylanta Plus Xs) 15 ml PRN AFTMEALHC PRN PO DYSPEPSIA 04/14/20 15:00 Magnesium Hydroxide (Milk Of Magnesia) 2,400 mg PRN QHS PRN PO CONSTIPATION 04/14/20 15:00 Allopurinol (Zyloprim) 100 mg HS PO 04/14/20 21:00 04/16/20 20:24 Amlodipine Besylate (Norvasc) 10 mg DAILY PO 04/15/20 09:00 04/16/20 10:00 Aripiprazole (Abilify) 2 mg DAILY PO 04/15/20 09:00 04/16/20 17:08 DC 04/16/20 10:00 Aspirin (Aspirin Chewable) 81 mg DAILYWBKFT PO 04/15/20 08:00 04/16/20 10:00 Azelastine HCl (Astelin) 2 spray BID NS 04/14/20 21:00 04/16/20 20:25 Bupropion HCl (Wellbutrin Xl) 150 mg DAILY PO 04/15/20 09:00 04/16/20 09:58 Chlorthalidone (Thalitone) 25 mg DAILY PO 04/15/20 09:00 04/16/20 09:58 Clopidogrel Bisulfate (Plavix) 75 mg QHS PO 04/14/20 21:00 04/16/20 20:24 Coenzyme Q10 (Coenzyme Q10) 50 mg DAILY PO 04/15/20 09:00 04/16/20 10:00 Finasteride (Proscar) 5 mg DAILY PO 04/15/20 09:00 04/16/20 10:00 Levothyroxine Sodium (Synthroid) 100 mcg DAILY06 PO 04/15/20 06:00 04/17/20 05:06 Losartan Potassium (Cozaar) 50 mg DAILY PO 04/15/20 09:00 04/16/20 09:58 Metoprolol Succinate (Toprol Xl) 100 mg DAILY PO 04/15/20 09:00 04/16/20 10:00 Fish Oil (Fish Oil) 1,000 mg DAILY PO 04/15/20 09:00 04/16/20 09:58 Quetiapine Fumarate (SEROquel) 50 mg QHS PO 04/14/20 21:00 04/14/20 16:15 DC Vitamin D (Vitamin D3) 50,000 unit WEEKLY PO 04/21/20 09:00 Colchicine (Colcrys) 0.6 mg PRN DAILY PRN PO for GOUT pain 04/14/20 15:30 Diclofenac Sodium (Voltaren) 1 aaron PRN QID PRN TP PAIN 04/14/20 15:30 Nitroglycerin (Nitrostat) 0.4 mg PRN Q5MIN PRN SL CHEST PAIN 04/14/20 15:30 Melatonin (Melatonin) 3 mg PRN QHS PRN PO INSOMNIA 04/14/20 15:30 04/14/20 20:51 Clonazepam (KlonoPIN) 0.25 mg BID PO 04/14/20 21:00 04/15/20 15:46 DC 04/15/20 09:12 Clonazepam (KlonoPIN) 0.25 mg QHS PO 04/15/20 21:00 04/17/20 23:00 04/16/20 20:25 Sertraline HCl (Zoloft) 50 mg DAILY PO 04/16/20 09:00 04/16/20 10:02 Olanzapine (ZyPREXA ZYDIS) 2.5 mg PRN Q2HR PRN PO PSYCHOSIS 04/16/20 13:15 04/16/20 15:16 Quetiapine Fumarate (SEROquel) 12.5 mg TID@0900,1300,1700 PO 04/17/20 09:00 Current Medications Medications (Trade) Dose Ordered Sig/Afshin Route PRN Reason Start Time Stop Time Status Last Admin Dose Admin Sertraline HCl (Zoloft) 50 mg DAILY PO 04/16/20 09:00 04/16/20 10:02 Olanzapine (ZyPREXA ZYDIS) 2.5 mg PRN Q2HR PRN PO PSYCHOSIS 04/16/20 13:15 04/16/20 15:16 I have reviewed the current psychotropics carefully including drug interactions. Risk benefit ratio favors no change other than as noted in my dictated progress note. Diagnosis: Problems: (1) Major neurocognitive disorder (2) Impulse control disorder, unspecified (3) Anxiety disorder, unspecified (4) Dementia, vascular, with depression (5) Dementia, vascular, with delusions (6) Dementia in Alzheimer's disease with depression (7) Dementia in Alzheimer's disease with delusions (8) Dementia of the Alzheimer's type with early onset with behavioral disturbance RENITA SAGASTUME MD Apr 17, 2020 08:19
[2020-04-17] MEDS: ASPIRIN CHEWABLE 81 MG TABLET. PO SCH (09:27)
[2020-04-17] MEDS: LOSARTAN 50 MG TABLET. PO SCH (09:27)
[2020-04-17] MEDS: amLODIPine BESYLATE 10 MG TABLET PO SCH (09:27)
[2020-04-17] MEDS: UBIDECARENONE 50 MG CAPSULE. PO SCH (09:27)
[2020-04-17] MEDS: buPROPion XL 150 MG TAB.ER.24H PO SCH (09:27)
[2020-04-17] MEDS: FINASTERIDE 5 MG TABLET. PO SCH (09:28)
[2020-04-17] MEDS: OMEGA-3 FATTY ACIDS/FISH OIL 1,000 MG CAPSULE. PO SCH (09:28)
[2020-04-17] MEDS: METOPROLOL SUCC 24HR ER 50 MG TAB.ER.24H. PO SCH (09:28)
[2020-04-17] MEDS: SERTRALINE 25 MG TABLET. PO SCH (09:28)
[2020-04-17] MEDS: CHLORTHALIDONE 25 MG TABLET PO SCH (09:28)
[2020-04-17] MEDS: AZELASTINE NASAL SPRAY 30ML BOTTLE. NS SCH ×2 (09:28→21:10)
[2020-04-17] MEDS: QUEtiapine 25 MG TABLET. PO SCH ×4 (09:31→17:00)
[2020-04-17 15:56] VITALS: BP 116/72
--- NOTE | 2020-04-17 20:59 | PDOC ---
Exam Note: Miguel Note: Please also refer to the separate dictated note~for this date of service dictated separately.~Patient seen individually. Discussed the patient with Nursing staff reviewed the chart.~Reviewed interim history and current functioning. Reviewed vital signs,~Labs/ Radiology~and current medications noted below. Continue current treatment with the changes noted in the dictated addendum note Assessment: Vital Signs/I&O: Vital Signs Date Time Temp Pulse Resp B/P (MAP) Pulse Ox O2 Delivery O2 Flow Rate FiO2 04/17/20 15:56 98.0 75 17 116/72 (87) 98 04/15/20 16:55 Room Air I & O 04/16/20 04/16/20 04/17/20 15:00 23:00 07:00 Intake Total 480 ml 480 ml Balance 480 ml 480 ml Labs: Laboratory Tests Test 04/17/20 08:05 Glucose (Fingerstick) 91 mg/dL (70-99) Current Medications: Meds: Laboratory Tests Test 04/17/20 08:05 Glucose (Fingerstick) 91 mg/dL Current Medications Medications (Trade) Dose Ordered Sig/Afshin Route PRN Reason Start Time Stop Time Status Last Admin Dose Admin Acetaminophen (Tylenol) 650 mg PRN Q6HRS PRN PO MILD PAIN / TEMP > 100.3'F 04/14/20 15:00 Multi-Ingredient Ointment (Analgesic [place]) 1 aaron PRN QID PRN TP MUSCLE PAIN 04/14/20 15:00 Al Hydroxide/Mg Hydroxide (Mylanta Plus Xs) 15 ml PRN AFTMEALHC PRN PO DYSPEPSIA 04/14/20 15:00 Magnesium Hydroxide (Milk Of Magnesia) 2,400 mg PRN QHS PRN PO CONSTIPATION 04/14/20 15:00 Allopurinol (Zyloprim) 100 mg HS PO 04/14/20 21:00 04/16/20 20:24 Amlodipine Besylate (Norvasc) 10 mg DAILY PO 04/15/20 09:00 04/17/20 09:27 Aripiprazole (Abilify) 2 mg DAILY PO 04/15/20 09:00 04/16/20 17:08 DC 04/16/20 10:00 Aspirin (Aspirin Chewable) 81 mg DAILYWBKFT PO 04/15/20 08:00 04/17/20 09:27 Azelastine HCl (Astelin) 2 spray BID NS 04/14/20 21:00 04/17/20 09:28 Bupropion HCl (Wellbutrin Xl) 150 mg DAILY PO 04/15/20 09:00 04/17/20 09:27 Chlorthalidone (Thalitone) 25 mg DAILY PO 04/15/20 09:00 04/17/20 09:28 Clopidogrel Bisulfate (Plavix) 75 mg QHS PO 04/14/20 21:00 04/16/20 20:24 Coenzyme Q10 (Coenzyme Q10) 50 mg DAILY PO 04/15/20 09:00 04/17/20 09:27 Finasteride (Proscar) 5 mg DAILY PO 04/15/20 09:00 04/17/20 09:28 Levothyroxine Sodium (Synthroid) 100 mcg DAILY06 PO 04/15/20 06:00 04/17/20 05:06 Losartan Potassium (Cozaar) 50 mg DAILY PO 04/15/20 09:00 04/17/20 09:27 Metoprolol Succinate (Toprol Xl) 100 mg DAILY PO 04/15/20 09:00 04/17/20 09:28 Fish Oil (Fish Oil) 1,000 mg DAILY PO 04/15/20 09:00 04/17/20 09:28 Quetiapine Fumarate (SEROquel) 50 mg QHS PO 04/14/20 21:00 04/14/20 16:15 DC Vitamin D (Vitamin D3) 50,000 unit WEEKLY PO 04/21/20 09:00 Colchicine (Colcrys) 0.6 mg PRN DAILY PRN PO for GOUT pain 04/14/20 15:30 Diclofenac Sodium (Voltaren) 1 aaron PRN QID PRN TP PAIN 04/14/20 15:30 Nitroglycerin (Nitrostat) 0.4 mg PRN Q5MIN PRN SL CHEST PAIN 04/14/20 15:30 Melatonin (Melatonin) 3 mg PRN QHS PRN PO INSOMNIA 04/14/20 15:30 04/14/20 20:51 Clonazepam (KlonoPIN) 0.25 mg BID PO 04/14/20 21:00 04/15/20 15:46 DC 04/15/20 09:12 Clonazepam (KlonoPIN) 0.25 mg QHS PO 04/15/20 21:00 04/17/20 23:00 04/16/20 20:25 Sertraline HCl (Zoloft) 50 mg DAILY PO 04/16/20 09:00 04/20/20 23:59 04/17/20 09:28 Olanzapine (ZyPREXA ZYDIS) 2.5 mg PRN Q2HR PRN PO PSYCHOSIS 04/16/20 13:15 04/16/20 15:16 Quetiapine Fumarate (SEROquel) 12.5 mg TID@0900,1300,1700 PO 04/17/20 09:00 04/17/20 17:00 Sertraline HCl (Zoloft) 75 mg DAILY PO 04/18/20 09:00 04/21/20 08:00 Current Medications Medications (Trade) Dose Ordered Sig/Afshin Route PRN Reason Start Time Stop Time Status Last Admin Dose Admin Quetiapine Fumarate (SEROquel) 12.5 mg TID@0900,1300,1700 PO 04/17/20 09:00 04/17/20 17:00 I have reviewed the current psychotropics carefully including drug interactions. Risk benefit ratio favors no change other than as noted in my dictated progress note. Diagnosis: Problems: (1) Major neurocognitive disorder (2) Impulse control disorder, unspecified (3) Anxiety disorder, unspecified (4) Dementia, vascular, with depression (5) Dementia, vascular, with delusions (6) Dementia in Alzheimer's disease with depression (7) Dementia in Alzheimer's disease with delusions (8) Dementia of the Alzheimer's type with early onset with behavioral disturbance RENITA SAGASTUME MD Apr 17, 2020 20:59
[2020-04-17] MEDS: ALLOPURINOL 100 MG TABLET. PO SCH (21:07)
[2020-04-17] MEDS: CLOPIDOGREL BISULFATE 75 MG TABLET PO SCH (21:07)
[2020-04-17] MEDS: clonazePAM 0.5 MG TABLET PO SCH (21:10)
[2020-04-18] MEDS: LEVOTHYROXINE 100 MCG TABLET PO SCH (05:11)
[2020-04-18 06:33] VITALS: BP 121/89
[2020-04-18] MEDS: ASPIRIN CHEWABLE 81 MG TABLET. PO SCH (08:01)
[2020-04-18] MEDS: CHLORTHALIDONE 25 MG TABLET PO SCH (08:03)
[2020-04-18] MEDS: SERTRALINE 25 MG TABLET. PO SCH (08:03)
[2020-04-18] MEDS: METOPROLOL SUCC 24HR ER 50 MG TAB.ER.24H. PO SCH (08:03)
[2020-04-18] MEDS: amLODIPine BESYLATE 10 MG TABLET PO SCH (08:03)
[2020-04-18] MEDS: UBIDECARENONE 50 MG CAPSULE. PO SCH (08:04)
[2020-04-18] MEDS: QUEtiapine 25 MG TABLET. PO SCH ×3 (08:04→16:52)
[2020-04-18] MEDS: buPROPion XL 150 MG TAB.ER.24H PO SCH (08:04)
[2020-04-18] MEDS: LOSARTAN 50 MG TABLET. PO SCH (08:04)
[2020-04-18] MEDS: FINASTERIDE 5 MG TABLET. PO SCH (08:04)
[2020-04-18] MEDS: OMEGA-3 FATTY ACIDS/FISH OIL 1,000 MG CAPSULE. PO SCH (08:05)
[2020-04-18] MEDS: AZELASTINE NASAL SPRAY 30ML BOTTLE. NS SCH ×2 (08:05→20:05)
--- NOTE | 2020-04-18 08:50 | PDOC ---
Exam Note: Miguel Note: This note is a late entry for 04/17/2020 covers elements not covered in my initial note. Subjective: The patient was reviewed on telehealth rounds in the evening of 04/17/2020 with Kendra BAY. Discussed with nursing staff, reviewed the chart. He slept 6-3/4 hours previous night. The patient remains confused. No p.r.n.s given today. He has been wandering, going into other patients rooms, somewhat delusional, suspicious but redirects. Review of Systems: No CV, , pulmonary, eye, ENT system symptoms on review. Mental Status Exam: The patient is oriented to himself. Insight and judgment, recent and remote memory, attention and concentration, fund of knowledge is poor consistent with his diagnosis. Laboratory Data: Reviewed. Impression: Major neurocognitive disorder Alzheimer vascular with delusion, depression, behavioral disturbance. Anxiety disorder unspecified. Impulse control disorder unspecified. Plan: The patient is on Zoloft 50 mg a day after he has been on this for 3 days. We will increase to 75 mg a day. Stop the Lexapro. Maintain Wellbutrin XL 150 mg a day to augment the Zoloft. Klonopin has been stopped today. Maintain melatonin, Wellbutrin, Seroquel 12.5 mg t.i.d. The latter may need to be increased if psychotic symptoms, agitation resurfaces or we may change this to Clozaril depending on his progress. Assessment: Vital Signs/I&O: Vital Signs Date Time Temp Pulse Resp B/P (MAP) Pulse Ox O2 Delivery O2 Flow Rate FiO2 04/18/20 08:04 72 121/89 04/18/20 06:33 96.8 18 100 Room Air I & O 04/17/20 04/17/20 04/18/20 15:00 23:00 07:00 Intake Total 580 ml 360 ml 120 ml Balance 580 ml 360 ml 120 ml Labs: Laboratory Tests Test 04/18/20 07:35 Glucose (Fingerstick) 93 mg/dL (70-99) Current Medications: Meds: Laboratory Tests Test 04/18/20 07:35 Glucose (Fingerstick) 93 mg/dL Current Medications Medications (Trade) Dose Ordered Sig/Afshin Route PRN Reason Start Time Stop Time Status Last Admin Dose Admin Acetaminophen (Tylenol) 650 mg PRN Q6HRS PRN PO MILD PAIN / TEMP > 100.3'F 04/14/20 15:00 Multi-Ingredient Ointment (Analgesic [place]) 1 aaron PRN QID PRN TP MUSCLE PAIN 04/14/20 15:00 Al Hydroxide/Mg Hydroxide (Mylanta Plus Xs) 15 ml PRN AFTMEALHC PRN PO DYSPEPSIA 04/14/20 15:00 Magnesium Hydroxide (Milk Of Magnesia) 2,400 mg PRN QHS PRN PO CONSTIPATION 04/14/20 15:00 Allopurinol (Zyloprim) 100 mg HS PO 04/14/20 21:00 04/17/20 21:07 Amlodipine Besylate (Norvasc) 10 mg DAILY PO 04/15/20 09:00 04/18/20 08:03 Aripiprazole (Abilify) 2 mg DAILY PO 04/15/20 09:00 04/16/20 17:08 DC 04/16/20 10:00 Aspirin (Aspirin Chewable) 81 mg DAILYWBKFT PO 04/15/20 08:00 04/18/20 08:01 Azelastine HCl (Astelin) 2 spray BID NS 04/14/20 21:00 04/18/20 08:05 Bupropion HCl (Wellbutrin Xl) 150 mg DAILY PO 04/15/20 09:00 04/18/20 08:04 Chlorthalidone (Thalitone) 25 mg DAILY PO 04/15/20 09:00 04/18/20 08:03 Clopidogrel Bisulfate (Plavix) 75 mg QHS PO 04/14/20 21:00 04/17/20 21:07 Coenzyme Q10 (Coenzyme Q10) 50 mg DAILY PO 04/15/20 09:00 04/18/20 08:04 Finasteride (Proscar) 5 mg DAILY PO 04/15/20 09:00 04/18/20 08:04 Levothyroxine Sodium (Synthroid) 100 mcg DAILY06 PO 04/15/20 06:00 04/18/20 05:11 Losartan Potassium (Cozaar) 50 mg DAILY PO 04/15/20 09:00 04/18/20 08:04 Metoprolol Succinate (Toprol Xl) 100 mg DAILY PO 04/15/20 09:00 04/18/20 08:03 Fish Oil (Fish Oil) 1,000 mg DAILY PO 04/15/20 09:00 04/17/20 09:28 Quetiapine Fumarate (SEROquel) 50 mg QHS PO 04/14/20 21:00 04/14/20 16:15 DC Vitamin D (Vitamin D3) 50,000 unit WEEKLY PO 04/21/20 09:00 Colchicine (Colcrys) 0.6 mg PRN DAILY PRN PO for GOUT pain 04/14/20 15:30 Diclofenac Sodium (Voltaren) 1 aaron PRN QID PRN TP PAIN 04/14/20 15:30 Nitroglycerin (Nitrostat) 0.4 mg PRN Q5MIN PRN SL CHEST PAIN 04/14/20 15:30 Melatonin (Melatonin) 3 mg PRN QHS PRN PO INSOMNIA 04/14/20 15:30 04/14/20 20:51 Clonazepam (KlonoPIN) 0.25 mg BID PO 04/14/20 21:00 04/15/20 15:46 DC 04/15/20 09:12 Clonazepam (KlonoPIN) 0.25 mg QHS PO 04/15/20 21:00 04/17/20 23:01 DC 04/17/20 21:10 Sertraline HCl (Zoloft) 50 mg DAILY PO 04/16/20 09:00 04/20/20 23:59 04/18/20 08:03 Olanzapine (ZyPREXA ZYDIS) 2.5 mg PRN Q2HR PRN PO PSYCHOSIS 04/16/20 13:15 04/16/20 15:16 Quetiapine Fumarate (SEROquel) 12.5 mg TID@0900,1300,1700 PO 04/17/20 09:00 04/18/20 08:04 Sertraline HCl (Zoloft) 75 mg DAILY PO 04/18/20 09:00 04/18/20 07:37 DC Sertraline HCl (Zoloft) 75 mg DAILY PO 04/18/20 09:00 04/18/20 08:23 DC Sertraline HCl (Zoloft) 75 mg DAILY PO 04/21/20 09:00 Current Medications Medications (Trade) Dose Ordered Sig/Afshin Route PRN Reason Start Time Stop Time Status Last Admin Dose Admin Quetiapine Fumarate (SEROquel) 12.5 mg TID@0900,1300,1700 PO 04/17/20 09:00 04/18/20 08:04 I have reviewed the current psychotropics carefully including drug interactions. Risk benefit ratio favors no change other than as noted in my dictated progress note. Diagnosis: Problems: (1) Major neurocognitive disorder (2) Impulse control disorder, unspecified (3) Anxiety disorder, unspecified (4) Dementia, vascular, with depression (5) Dementia, vascular, with delusions (6) Dementia in Alzheimer's disease with depression (7) Dementia in Alzheimer's disease with delusions (8) Dementia of the Alzheimer's type with early onset with behavioral disturbance RENITA SAGASTUME MD Apr 18, 2020 08:50
[2020-04-18] MEDS ORDERED: SERTRALINE 25 MG TABLET. PO SCH (09:00)
[2020-04-18] MEDS ORDERED: SERTRALINE 50 MG TABLET. PO SCH (09:00)
--- NOTE | 2020-04-18 15:47 | RAD ---
Exam performed: CT scan of the head without contrast. Date of Service: 04/18/2020. Comparison: None available. Clinical History: Witnessed fall, patient hit head, patient is on blood thinners. Technique: Helical acquisitions are obtained from the foramen magnum to the vertex without intravenou s administration of contrast. Findings: The ventricles are midline without evidence of dilatation. Mild atrophy is seen. Minimal areas of low -attenuation in both periventricular and subcortical deep white matter are seen consistent with small vessel ischemic changes. Normal dotson-white differentiation is maintained. There is no extra axial f luid collection, intraparenchymal hemorrhage or mass lesion. Diffuse atheromatous calcification of bi lateral distal vertebral arteries. The visualized portions of the orbits, paranasal sinuses and the m astoid air cells appear clear. The calvarium is intact. Impression: 1. No acute intracranial process detected. 2. Mild atrophy is seen. PQRS Compliance Statement: One or more of the following individualized dose reduction techniques were utilized for this examinat ion: 1. Automated exposure control 2. Adjustment of the mA and/or kV according to patient size 3. Use of iterative reconstruction technique Electronically signed by: Eulalia Beard MD (04/18/2020 3:45 PM) [id number]
[2020-04-18 16:43] VITALS: BP 122/76
[2020-04-18] MEDS: ALLOPURINOL 100 MG TABLET. PO SCH (20:04)
[2020-04-18] MEDS: CLOPIDOGREL BISULFATE 75 MG TABLET PO SCH (20:05)
[2020-04-18] MEDS: MELATONIN 3 MG TABLET PO PRN (20:06)
--- NOTE | 2020-04-18 21:05 | PDOC ---
Exam Note: Miguel Note: Please also refer to the separate dictated note~for this date of service dictated separately.~Patient seen individually. Discussed the patient with Nursing staff reviewed the chart.~Reviewed interim history and current functioning. Reviewed vital signs,~Labs/ Radiology~and current medications noted below. Continue current treatment with the changes noted in the dictated addendum note Assessment: Vital Signs/I&O: Vital Signs Date Time Temp Pulse Resp B/P (MAP) Pulse Ox O2 Delivery O2 Flow Rate FiO2 04/18/20 16:43 97.4 80 18 122/76 (91) 95 04/18/20 06:33 Room Air I & O 04/17/20 04/17/20 04/18/20 14:59 22:59 06:59 Intake Total 580 ml 360 ml 120 ml Balance 580 ml 360 ml 120 ml Labs: Laboratory Tests Test 04/18/20 07:35 Glucose (Fingerstick) 93 mg/dL (70-99) Current Medications: Meds: Laboratory Tests Test 04/18/20 07:35 Glucose (Fingerstick) 93 mg/dL Current Medications Medications (Trade) Dose Ordered Sig/Afshin Route PRN Reason Start Time Stop Time Status Last Admin Dose Admin Acetaminophen (Tylenol) 650 mg PRN Q6HRS PRN PO MILD PAIN / TEMP > 100.3'F 04/14/20 15:00 Multi-Ingredient Ointment (Analgesic [place]) 1 aaron PRN QID PRN TP MUSCLE PAIN 04/14/20 15:00 Al Hydroxide/Mg Hydroxide (Mylanta Plus Xs) 15 ml PRN AFTMEALHC PRN PO DYSPEPSIA 04/14/20 15:00 Magnesium Hydroxide (Milk Of Magnesia) 2,400 mg PRN QHS PRN PO CONSTIPATION 04/14/20 15:00 Allopurinol (Zyloprim) 100 mg HS PO 04/14/20 21:00 04/18/20 20:04 Amlodipine Besylate (Norvasc) 10 mg DAILY PO 04/15/20 09:00 04/18/20 08:03 Aripiprazole (Abilify) 2 mg DAILY PO 04/15/20 09:00 04/16/20 17:08 DC 04/16/20 10:00 Aspirin (Aspirin Chewable) 81 mg DAILYWBKFT PO 04/15/20 08:00 04/18/20 08:01 Azelastine HCl (Astelin) 2 spray BID NS 04/14/20 21:00 04/18/20 20:05 Bupropion HCl (Wellbutrin Xl) 150 mg DAILY PO 04/15/20 09:00 04/18/20 08:04 Chlorthalidone (Thalitone) 25 mg DAILY PO 04/15/20 09:00 04/18/20 08:03 Clopidogrel Bisulfate (Plavix) 75 mg QHS PO 04/14/20 21:00 04/18/20 20:05 Coenzyme Q10 (Coenzyme Q10) 50 mg DAILY PO 04/15/20 09:00 04/18/20 08:04 Finasteride (Proscar) 5 mg DAILY PO 04/15/20 09:00 04/18/20 08:04 Levothyroxine Sodium (Synthroid) 100 mcg DAILY06 PO 04/15/20 06:00 04/18/20 05:11 Losartan Potassium (Cozaar) 50 mg DAILY PO 04/15/20 09:00 04/18/20 08:04 Metoprolol Succinate (Toprol Xl) 100 mg DAILY PO 04/15/20 09:00 04/18/20 08:03 Fish Oil (Fish Oil) 1,000 mg DAILY PO 04/15/20 09:00 04/17/20 09:28 Quetiapine Fumarate (SEROquel) 50 mg QHS PO 04/14/20 21:00 04/14/20 16:15 DC Vitamin D (Vitamin D3) 50,000 unit WEEKLY PO 04/21/20 09:00 Colchicine (Colcrys) 0.6 mg PRN DAILY PRN PO for GOUT pain 04/14/20 15:30 Diclofenac Sodium (Voltaren) 1 aaron PRN QID PRN TP PAIN 04/14/20 15:30 Nitroglycerin (Nitrostat) 0.4 mg PRN Q5MIN PRN SL CHEST PAIN 04/14/20 15:30 Melatonin (Melatonin) 3 mg PRN QHS PRN PO INSOMNIA 04/14/20 15:30 04/18/20 20:06 Clonazepam (KlonoPIN) 0.25 mg BID PO 04/14/20 21:00 04/15/20 15:46 DC 04/15/20 09:12 Clonazepam (KlonoPIN) 0.25 mg QHS PO 04/15/20 21:00 04/17/20 23:01 DC 04/17/20 21:10 Sertraline HCl (Zoloft) 50 mg DAILY PO 04/16/20 09:00 04/20/20 23:59 04/18/20 08:03 Olanzapine (ZyPREXA ZYDIS) 2.5 mg PRN Q2HR PRN PO PSYCHOSIS 04/16/20 13:15 04/18/20 20:25 Quetiapine Fumarate (SEROquel) 12.5 mg TID@0900,1300,1700 PO 04/17/20 09:00 04/18/20 16:52 Sertraline HCl (Zoloft) 75 mg DAILY PO 04/18/20 09:00 04/18/20 07:37 DC Sertraline HCl (Zoloft) 75 mg DAILY PO 04/18/20 09:00 04/18/20 08:23 DC Sertraline HCl (Zoloft) 75 mg DAILY PO 04/21/20 09:00 I have reviewed the current psychotropics carefully including drug interactions. Risk benefit ratio favors no change other than as noted in my dictated progress note. Diagnosis: Problems: (1) Major neurocognitive disorder (2) Impulse control disorder, unspecified (3) Anxiety disorder, unspecified (4) Dementia, vascular, with depression (5) Dementia, vascular, with delusions (6) Dementia in Alzheimer's disease with depression (7) Dementia in Alzheimer's disease with delusions (8) Dementia of the Alzheimer's type with early onset with behavioral disturbance RENITA SAGASTUME MD Apr 18, 2020 21:05
[2020-04-19] MEDS: LEVOTHYROXINE 100 MCG TABLET PO SCH (05:08)
[2020-04-19 06:15] VITALS: BP 151/82
--- NOTE | 2020-04-19 08:38 | PDOC ---
Exam Note: Miguel Note: This note is a late entry for 04/18/2020 covers elements not covered in my initial note. Subjective: The patient was seen face to face in the evening of 04/18/2020 with Cherelle BAY. Discussed with nursing staff, reviewed the chart. He slept 7 hours previous night. The patient remains confused, had a fall at 11.15 a.m., tripped over the chair. CT head had been done. We will defer to Dr. Kraus. Seroquel 1400 mg was held. He was given the 1700. Received Zyprexa Zydis at 1640 hours. He is compliant with his medications. He remains confused, believes he is in a hotel in [place]. Review of Systems: No CV, , pulmonary, eye, ENT system symptoms on review. Reliability poor. Mental Status Exam: The patient is oriented to himself. Insight and judgment, recent and remote memory, attention and concentration, fund of knowledge is poor consistent with his diagnosis. Laboratory Data: Reviewed. Impression: Major neurocognitive disorder Alzheimer vascular with delusion, depression, behavioral disturbance. Anxiety disorder unspecified. Impulse control disorder unspecified. Plan: No change from initial note. Assessment: Vital Signs/I&O: Vital Signs Date Time Temp Pulse Resp B/P (MAP) Pulse Ox O2 Delivery O2 Flow Rate FiO2 04/19/20 06:15 96.7 62 18 151/82 (105) 95 Room Air I & O 04/18/20 04/18/20 04/19/20 15:00 23:00 07:00 Intake Total 1320 ml 360 ml Balance 1320 ml 360 ml Current Medications: Meds: Current Medications Medications (Trade) Dose Ordered Sig/Afshin Route PRN Reason Start Time Stop Time Status Last Admin Dose Admin Acetaminophen (Tylenol) 650 mg PRN Q6HRS PRN PO MILD PAIN / TEMP > 100.3'F 04/14/20 15:00 Multi-Ingredient Ointment (Analgesic [place]) 1 aaron PRN QID PRN TP MUSCLE PAIN 04/14/20 15:00 Al Hydroxide/Mg Hydroxide (Mylanta Plus Xs) 15 ml PRN AFTMEALHC PRN PO DYSPEPSIA 04/14/20 15:00 Magnesium Hydroxide (Milk Of Magnesia) 2,400 mg PRN QHS PRN PO CONSTIPATION 04/14/20 15:00 Allopurinol (Zyloprim) 100 mg HS PO 04/14/20 21:00 04/18/20 20:04 Amlodipine Besylate (Norvasc) 10 mg DAILY PO 04/15/20 09:00 04/18/20 08:03 Aripiprazole (Abilify) 2 mg DAILY PO 04/15/20 09:00 04/16/20 17:08 DC 04/16/20 10:00 Aspirin (Aspirin Chewable) 81 mg DAILYWBKFT PO 04/15/20 08:00 04/18/20 08:01 Azelastine HCl (Astelin) 2 spray BID NS 04/14/20 21:00 04/18/20 20:05 Bupropion HCl (Wellbutrin Xl) 150 mg DAILY PO 04/15/20 09:00 04/18/20 08:04 Chlorthalidone (Thalitone) 25 mg DAILY PO 04/15/20 09:00 04/18/20 08:03 Clopidogrel Bisulfate (Plavix) 75 mg QHS PO 04/14/20 21:00 04/18/20 20:05 Coenzyme Q10 (Coenzyme Q10) 50 mg DAILY PO 04/15/20 09:00 04/18/20 08:04 Finasteride (Proscar) 5 mg DAILY PO 04/15/20 09:00 04/18/20 08:04 Levothyroxine Sodium (Synthroid) 100 mcg DAILY06 PO 04/15/20 06:00 04/19/20 05:08 Losartan Potassium (Cozaar) 50 mg DAILY PO 04/15/20 09:00 04/18/20 08:04 Metoprolol Succinate (Toprol Xl) 100 mg DAILY PO 04/15/20 09:00 04/18/20 08:03 Fish Oil (Fish Oil) 1,000 mg DAILY PO 04/15/20 09:00 04/17/20 09:28 Quetiapine Fumarate (SEROquel) 50 mg QHS PO 04/14/20 21:00 04/14/20 16:15 DC Vitamin D (Vitamin D3) 50,000 unit WEEKLY PO 04/21/20 09:00 Colchicine (Colcrys) 0.6 mg PRN DAILY PRN PO for GOUT pain 04/14/20 15:30 Diclofenac Sodium (Voltaren) 1 aaron PRN QID PRN TP PAIN 04/14/20 15:30 Nitroglycerin (Nitrostat) 0.4 mg PRN Q5MIN PRN SL CHEST PAIN 04/14/20 15:30 Melatonin (Melatonin) 3 mg PRN QHS PRN PO INSOMNIA 04/14/20 15:30 04/18/20 20:06 Clonazepam (KlonoPIN) 0.25 mg BID PO 04/14/20 21:00 04/15/20 15:46 DC 04/15/20 09:12 Clonazepam (KlonoPIN) 0.25 mg QHS PO 04/15/20 21:00 04/17/20 23:01 DC 04/17/20 21:10 Sertraline HCl (Zoloft) 50 mg DAILY PO 04/16/20 09:00 04/20/20 23:59 04/18/20 08:03 Olanzapine (ZyPREXA ZYDIS) 2.5 mg PRN Q2HR PRN PO PSYCHOSIS 04/16/20 13:15 04/18/20 20:25 Quetiapine Fumarate (SEROquel) 12.5 mg TID@0900,1300,1700 PO 04/17/20 09:00 04/18/20 16:52 Sertraline HCl (Zoloft) 75 mg DAILY PO 04/18/20 09:00 04/18/20 07:37 DC Sertraline HCl (Zoloft) 75 mg DAILY PO 04/18/20 09:00 04/18/20 08:23 DC Sertraline HCl (Zoloft) 75 mg DAILY PO 04/21/20 09:00 I have reviewed the current psychotropics carefully including drug interactions. Risk benefit ratio favors no change other than as noted in my dictated progress note. Diagnosis: Problems: (1) Major neurocognitive disorder (2) Impulse control disorder, unspecified (3) Anxiety disorder, unspecified (4) Dementia, vascular, with depression (5) Dementia, vascular, with delusions (6) Dementia in Alzheimer's disease with depression (7) Dementia in Alzheimer's disease with delusions (8) Dementia of the Alzheimer's type with early onset with behavioral disturbance RENITA SAGASTUME MD Apr 19, 2020 08:38
[2020-04-19] MEDS: SERTRALINE 25 MG TABLET. PO SCH (10:17)
[2020-04-19] MEDS: ASPIRIN CHEWABLE 81 MG TABLET. PO SCH (10:17)
[2020-04-19] MEDS: UBIDECARENONE 50 MG CAPSULE. PO SCH (10:17)
[2020-04-19] MEDS: METOPROLOL SUCC 24HR ER 50 MG TAB.ER.24H. PO SCH (10:17)
[2020-04-19] MEDS: QUEtiapine 25 MG TABLET. PO SCH ×3 (10:18→17:00)
[2020-04-19] MEDS: OMEGA-3 FATTY ACIDS/FISH OIL 1,000 MG CAPSULE. PO SCH (10:18)
[2020-04-19] MEDS: CHLORTHALIDONE 25 MG TABLET PO SCH (10:18)
[2020-04-19] MEDS: FINASTERIDE 5 MG TABLET. PO SCH (10:18)
[2020-04-19] MEDS: buPROPion XL 150 MG TAB.ER.24H PO SCH (10:18)
[2020-04-19] MEDS: amLODIPine BESYLATE 10 MG TABLET PO SCH (10:18)
[2020-04-19] MEDS: AZELASTINE NASAL SPRAY 30ML BOTTLE. NS SCH ×2 (10:19→21:15)
[2020-04-19] MEDS: LOSARTAN 50 MG TABLET. PO SCH (10:19)
[2020-04-19 11:09] LABS: BASO # 0.1 x10^3/uL (0.0-0.2); BASO % 1 % (0-3); EOS # 0.1 x10^3/uL (0.0-0.7); EOS % 2 % (0-3); HEMATOCRIT 38.9 % (39.0-53.0); HEMOGLOBIN 12.9 g/dL (13.0-17.5); LYMPH # 1.6 x10^3/uL (1.0-4.8); LYMPH % 21 % (24-48); MEAN CORPUSCULAR HEMOGLOBIN 34 pg (25-35); MEAN CORPUSCULAR HGB CONC 33 g/dL (31-37); MEAN CORPUSCULAR VOLUME 101 fL (79-100); MONO # 0.5 x10^3/uL (0.0-1.1); MONO % 7 % (0-9); NEUT # 5.1 x10^3uL (1.8-7.7); NEUT % 70 % (31-73); PLATELET COUNT 235 x10^3/uL (140-400); RED BLOOD COUNT 3.86 x10^6/uL (4.30-5.70); RED CELL DISTRIBUTION WIDTH 14.2 % (11.5-14.5); WHITE BLOOD COUNT 7.4 x10^3/uL (4.0-11.0)
[2020-04-19 11:17] LABS: ALBUMIN 3.7 g/dL (3.4-5.0); ALBUMIN/GLOBULIN RATIO 0.8 (1.0-1.7); CALCIUM 9.2 mg/dL (8.5-10.1); CREATININE 1.7 mg/dL (0.7-1.3); GFR 38.8; POTASSIUM 3.7 mmol/L (3.5-5.1); TOTAL BILIRUBIN 0.3 mg/dL (0.2-1.0); TOTAL PROTEIN 8.3 g/dL (6.4-8.2)
[2020-04-19 16:28] VITALS: BP 140/72
[2020-04-19] MEDS: CLOPIDOGREL BISULFATE 75 MG TABLET PO SCH (21:13)
[2020-04-19] MEDS: ALLOPURINOL 100 MG TABLET. PO SCH (21:13)
--- NOTE | 2020-04-19 21:33 | CONS ---
DATE OF CONSULTATION: 04/18/2020 NEUROLOGICAL CONSULTATION REASON FOR CONSULTATION: History of concussion and frequent falls. HISTORY OF PRESENT ILLNESS: This is an 84-year-old right-handed male who was [facility] on account of worsening of his depression, delusion, and behavior disturbances. Neuro consult was requested because the patient has had a history of concussion and recently he has had frequent falls. It was reported that the patient has multiple falls since admission. The patient complains of chronic lower back pain, weakness of the lower extremities. He denies headaches, visual disturbances, chest pain, shortness of breath, palpitations, dysarthria or dysphagia. The patient stated he sometimes has difficulty walking and he related that to his muscle pain. He cannot provide any concrete information as he has been having dementia of possible Alzheimer type. The patient has been delusional and paranoid, thinking he has been held as prisoner. PAST MEDICAL HISTORY: Significant for polymyalgia rheumatica, chronic lower back pain, coronary artery disease, status post myocardial infarction and pacemaker placement for cardiac arrhythmias, pain of the right hip required total hip replacement, benign prostate hypertrophy and chronic kidney disease. FAMILY HISTORY: None unobtainable. SOCIAL HISTORY: The patient denies alcohol drinking, smoking, or illicit drug use. 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 Currently, he is being referred from [facility]. CURRENT MEDICATIONS: Sertraline, Zoloft 75 mg p.o. daily, vitamin D 50 units weekly, Seroquel 12.5 mg t.i.d., olanzapine 2.5 mg for agitation, Zoloft 50 mg daily, fish oil, metoprolol 100 mg daily, Proscar 5 mg daily, thalitone 25 mg daily, Wellbutrin-XL 150 mg daily, amlodipine 10 mg daily, aspirin 81 mg daily, Synthroid 100 mcg daily, Plavix 75 mg at bedtime, allopurinol 100 mg q.h.s., melatonin 3 mg at bedtime p.r.n. for insomnia, nitroglycerin 0.4 mg p.r.n. for chest pain, Voltaren 1 gel application p.r.n., and colchicine 0.6 mg daily. ALLERGIES: No known drug allergies. PHYSICAL EXAMINATION: GENERAL: Well-developed, well-nourished male, not in acute distress. He weighs 85 kilos. VITAL SIGNS: Blood pressure 122/76, respiratory rate 18, pulse is 80, temperature is 97.4, and oxygen saturation 95% on room air. HEENT: Normocephalic, atraumatic, otherwise unremarkable. NECK: Supple. Negative for carotid bruit, lymphadenopathy, or thyromegaly. LUNGS: Clear to A and P. CARDIOVASCULAR: Regular rate and rhythm, normal S1, S2. ABDOMEN: Soft. Bowel sounds are positive. No palpable mass, organomegaly, or tenderness. EXTREMITIES: Negative for cyanosis, clubbing, or edema. NEUROLOGICAL EXAM: Mental Status: The patient is alert and oriented to himself. He is disoriented to time or date. He is disoriented to time and place. Speech is somewhat fluent. Memory, judgment, and abstracting thinking are poor, consistent with underlying dementia of Alzheimer type. However, the patient denies hallucination. CRANIAL NERVES: Visual savage appeared to be intact. The pupils are equal and reactive to light and accommodation. There is no facial motor or sensory deficit. Hearing appeared to be intact. The palate is elevated symmetrically. Sternocleidomastoid muscles are powerful bilaterally. The patient shrugs his shoulders symmetrically, protrudes his tongue in the midline without fasciculation or atrophy. MOTOR: No focal muscle bulk was seen. The tone is normal. The strength is 4/5 throughout. SENSORY EXAMINATION: Revealed diminished pinprick and light touch senses in patchy distributions in both lower extremities. Deep tendon reflexes were symmetric and hypoactive with absent Achilles responses. GAIT: The stance is steady. The patient was able to walk a few steps without assistance; however, Romberg sign is positive. DIAGNOSTIC DATA: Initial nonenhanced CT scan performed on 04/15/2020 revealed no acute intracranial abnormalities. Repeated CT scan today after he sustained a fall and had closed head injury revealed no acute intracranial process, but it showed mild generalized atrophy. IMPRESSION: 1. Status post closed head injury without acute intracranial process by repeating head CT scan. 2. History of multiple falls, probably multifactorial including dementia, chronic lower back pain, and polymyalgia rheumatica. 3. Multiple medical problems as outlined above including history of cardiac arrhythmia, required pacemaker placement, hypertension, chronic kidney disease, hyperlipidemia, coronary artery disease, myocardial infarction, and chronic lower back pain. RECOMMENDATIONS: 1. We will continue with current medical and psychiatric care. 2. Physical therapy evaluation. M Paxton FUCHS MD DR: DIEGO/bruce JOB#: [id number] / [id number]
--- NOTE | 2020-04-19 21:35 | PDOC ---
Exam Note: Miguel Note: Please also refer to the separate dictated note~for this date of service dictated separately.~Patient seen individually. Discussed the patient with Nursing staff reviewed the chart.~Reviewed interim history and current functioning. Reviewed vital signs,~Labs/ Radiology~and current medications noted below. Continue current treatment with the changes noted in the dictated addendum note Assessment: Vital Signs/I&O: Vital Signs Date Time Temp Pulse Resp B/P (MAP) Pulse Ox O2 Delivery O2 Flow Rate FiO2 04/19/20 16:28 97.9 60 16 140/72 (94) 97 Room Air I & O 04/18/20 04/18/20 04/19/20 15:00 23:00 07:00 Intake Total 1320 ml 360 ml Balance 1320 ml 360 ml Labs: Laboratory Tests Test 04/19/20 10:27 04/19/20 12:06 White Blood Count 7.4 x10^3/uL (4.0-11.0) Red Blood Count 3.86 x10^6/uL (4.30-5.70) L Hemoglobin 12.9 g/dL (13.0-17.5) L Hematocrit 38.9 % (39.0-53.0) L Mean Corpuscular Volume 101 fL (79-100) H Mean Corpuscular Hemoglobin 34 pg (25-35) Mean Corpuscular Hemoglobin Concent 33 g/dL (31-37) Red Cell Distribution Width 14.2 % (11.5-14.5) Platelet Count 235 x10^3/uL (140-400) Neutrophils (%) (Auto) 70 % (31-73) Lymphocytes (%) (Auto) 21 % (24-48) L Monocytes (%) (Auto) 7 % (0-9) Eosinophils (%) (Auto) 2 % (0-3) Basophils (%) (Auto) 1 % (0-3) Neutrophils # (Auto) 5.1 x10^3uL (1.8-7.7) Lymphocytes # (Auto) 1.6 x10^3/uL (1.0-4.8) Monocytes # (Auto) 0.5 x10^3/uL (0.0-1.1) Eosinophils # (Auto) 0.1 x10^3/uL (0.0-0.7) Basophils # (Auto) 0.1 x10^3/uL (0.0-0.2) Sodium Level 143 mmol/L (136-145) Potassium Level 3.7 mmol/L (3.5-5.1) Chloride Level 107 mmol/L (98-107) Carbon Dioxide Level 30 mmol/L (21-32) Anion Gap 6 (6-14) Blood Urea Nitrogen 32 mg/dL (8-26) H Creatinine 1.7 mg/dL (0.7-1.3) H Estimated GFR (Cockcroft-Gault) 38.8 BUN/Creatinine Ratio 19 (6-20) Glucose Level 121 mg/dL (70-99) H Calcium Level 9.2 mg/dL (8.5-10.1) Total Bilirubin 0.3 mg/dL (0.2-1.0) Aspartate Amino Transferase (AST) 30 U/L (15-37) Alanine Aminotransferase (ALT) 39 U/L (16-63) Alkaline Phosphatase 93 U/L (46-116) Total Protein 8.3 g/dL (6.4-8.2) H Albumin 3.7 g/dL (3.4-5.0) Albumin/Globulin Ratio 0.8 (1.0-1.7) L Glucose (Fingerstick) 115 mg/dL (70-99) H Current Medications: Meds: Laboratory Tests Test 04/19/20 10:27 04/19/20 12:06 White Blood Count 7.4 x10^3/uL Red Blood Count 3.86 x10^6/uL Hemoglobin 12.9 g/dL Hematocrit 38.9 % Mean Corpuscular Volume 101 fL Mean Corpuscular Hemoglobin 34 pg Mean Corpuscular Hemoglobin Concent 33 g/dL Red Cell Distribution Width 14.2 % Platelet Count 235 x10^3/uL Neutrophils (%) (Auto) 70 % Lymphocytes (%) (Auto) 21 % Monocytes (%) (Auto) 7 % Eosinophils (%) (Auto) 2 % Basophils (%) (Auto) 1 % Neutrophils # (Auto) 5.1 x10^3uL Lymphocytes # (Auto) 1.6 x10^3/uL Monocytes # (Auto) 0.5 x10^3/uL Eosinophils # (Auto) 0.1 x10^3/uL Basophils # (Auto) 0.1 x10^3/uL Sodium Level 143 mmol/L Potassium Level 3.7 mmol/L Chloride Level 107 mmol/L Carbon Dioxide Level 30 mmol/L Anion Gap 6 Blood Urea Nitrogen 32 mg/dL Creatinine 1.7 mg/dL Estimated GFR (Cockcroft-Gault) 38.8 BUN/Creatinine Ratio 19 Glucose Level 121 mg/dL Calcium Level 9.2 mg/dL Total Bilirubin 0.3 mg/dL Aspartate Amino Transf (AST/SGOT) 30 U/L Alanine Aminotransferase (ALT/SGPT) 39 U/L Alkaline Phosphatase 93 U/L Total Protein 8.3 g/dL Albumin 3.7 g/dL Albumin/Globulin Ratio 0.8 Glucose (Fingerstick) 115 mg/dL Current Medications Medications (Trade) Dose Ordered Sig/Afshin Route PRN Reason Start Time Stop Time Status Last Admin Dose Admin Acetaminophen (Tylenol) 650 mg PRN Q6HRS PRN PO MILD PAIN / TEMP > 100.3'F 04/14/20 15:00 Multi-Ingredient Ointment (Analgesic [place]) 1 aaron PRN QID PRN TP MUSCLE PAIN 04/14/20 15:00 Al Hydroxide/Mg Hydroxide (Mylanta Plus Xs) 15 ml PRN AFTMEALHC PRN PO DYSPEPSIA 04/14/20 15:00 Magnesium Hydroxide (Milk Of Magnesia) 2,400 mg PRN QHS PRN PO CONSTIPATION 04/14/20 15:00 Allopurinol (Zyloprim) 100 mg HS PO 04/14/20 21:00 04/19/20 21:13 Amlodipine Besylate (Norvasc) 10 mg DAILY PO 04/15/20 09:00 04/19/20 18:30 DC 04/19/20 10:18 Aripiprazole (Abilify) 2 mg DAILY PO 04/15/20 09:00 04/16/20 17:08 DC 04/16/20 10:00 Aspirin (Aspirin Chewable) 81 mg DAILYWBKFT PO 04/15/20 08:00 04/19/20 10:17 Azelastine HCl (Astelin) 2 spray BID NS 04/14/20 21:00 04/19/20 21:15 Bupropion HCl (Wellbutrin Xl) 150 mg DAILY PO 04/15/20 09:00 04/19/20 10:18 Chlorthalidone (Thalitone) 25 mg DAILY PO 04/15/20 09:00 04/19/20 18:30 DC 04/19/20 10:18 Clopidogrel Bisulfate (Plavix) 75 mg QHS PO 04/14/20 21:00 04/19/20 21:13 Coenzyme Q10 (Coenzyme Q10) 50 mg DAILY PO 04/15/20 09:00 04/19/20 10:17 Finasteride (Proscar) 5 mg DAILY PO 04/15/20 09:00 04/19/20 10:18 Levothyroxine Sodium (Synthroid) 100 mcg DAILY06 PO 04/15/20 06:00 04/19/20 05:08 Losartan Potassium (Cozaar) 50 mg DAILY PO 04/15/20 09:00 04/19/20 14:20 DC 04/19/20 10:19 Metoprolol Succinate (Toprol Xl) 100 mg DAILY PO 04/15/20 09:00 04/19/20 10:17 Fish Oil (Fish Oil) 1,000 mg DAILY PO 04/15/20 09:00 04/19/20 10:18 Quetiapine Fumarate (SEROquel) 50 mg QHS PO 04/14/20 21:00 04/14/20 16:15 DC Vitamin D (Vitamin D3) 50,000 unit WEEKLY PO 04/21/20 09:00 Colchicine (Colcrys) 0.6 mg PRN DAILY PRN PO for GOUT pain 04/14/20 15:30 Diclofenac Sodium (Voltaren) 1 aaron PRN QID PRN TP PAIN 04/14/20 15:30 Nitroglycerin (Nitrostat) 0.4 mg PRN Q5MIN PRN SL CHEST PAIN 04/14/20 15:30 Melatonin (Melatonin) 3 mg PRN QHS PRN PO INSOMNIA 04/14/20 15:30 04/18/20 20:06 Clonazepam (KlonoPIN) 0.25 mg BID PO 04/14/20 21:00 04/15/20 15:46 DC 04/15/20 09:12 Clonazepam (KlonoPIN) 0.25 mg QHS PO 04/15/20 21:00 04/17/20 23:01 DC 04/17/20 21:10 Sertraline HCl (Zoloft) 50 mg DAILY PO 04/16/20 09:00 04/20/20 23:59 04/19/20 10:17 Olanzapine (ZyPREXA ZYDIS) 2.5 mg PRN Q2HR PRN PO PSYCHOSIS 04/16/20 13:15 04/18/20 20:25 Quetiapine Fumarate (SEROquel) 12.5 mg TID@0900,1300,1700 PO 04/17/20 09:00 04/19/20 17:00 Sertraline HCl (Zoloft) 75 mg DAILY PO 04/18/20 09:00 04/18/20 07:37 DC Sertraline HCl (Zoloft) 75 mg DAILY PO 04/18/20 09:00 04/18/20 08:23 DC Sertraline HCl (Zoloft) 75 mg DAILY PO 04/21/20 09:00 I have reviewed the current psychotropics carefully including drug interactions. Risk benefit ratio favors no change other than as noted in my dictated progress note. 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
[2020-04-20] MEDS: LEVOTHYROXINE 100 MCG TABLET PO SCH (05:42)
[2020-04-20 06:08] VITALS: BP 137/86
[2020-04-20] MEDS: buPROPion XL 150 MG TAB.ER.24H PO SCH (08:18)
[2020-04-20] MEDS: ASPIRIN CHEWABLE 81 MG TABLET. PO SCH (08:18)
[2020-04-20] MEDS: OMEGA-3 FATTY ACIDS/FISH OIL 1,000 MG CAPSULE. PO SCH (08:18)
[2020-04-20] MEDS: FINASTERIDE 5 MG TABLET. PO SCH (08:18)
[2020-04-20] MEDS: SERTRALINE 25 MG TABLET. PO SCH (08:19)
[2020-04-20] MEDS: UBIDECARENONE 50 MG CAPSULE. PO SCH (08:19)
[2020-04-20] MEDS: QUEtiapine 25 MG TABLET. PO SCH ×3 (08:20→17:39)
[2020-04-20] MEDS: METOPROLOL SUCC 24HR ER 50 MG TAB.ER.24H. PO SCH (08:20)
[2020-04-20] MEDS: AZELASTINE NASAL SPRAY 30ML BOTTLE. NS SCH ×2 (08:26→20:45)
[2020-04-20 17:55] VITALS: BP 137/79
[2020-04-20] MEDS: CLOPIDOGREL BISULFATE 75 MG TABLET PO SCH (20:45)
[2020-04-20] MEDS: ALLOPURINOL 100 MG TABLET. PO SCH (20:45)
--- NOTE | 2020-04-20 20:59 | PDOC ---
Exam Note: Miguel Note: Please also refer to the separate dictated note~for this date of service dictated separately.~Patient seen individually. Discussed the patient with Nursing staff reviewed the chart.~Reviewed interim history and current functioning. Reviewed vital signs,~Labs/ Radiology~and current medications noted below. Continue current treatment with the changes noted in the dictated addendum note Assessment: Vital Signs/I&O: Vital Signs Date Time Temp Pulse Resp B/P (MAP) Pulse Ox O2 Delivery O2 Flow Rate FiO2 04/20/20 17:55 98.6 59 16 137/79 (98) 97 04/20/20 06:08 Room Air I & O 04/19/20 04/19/20 04/20/20 15:00 23:00 07:00 Intake Total 220 ml 360 ml Balance 220 ml 360 ml Labs: Laboratory Tests Test 04/20/20 07:33 Glucose (Fingerstick) 101 mg/dL (70-99) H Current Medications: Meds: Laboratory Tests Test 04/20/20 07:33 Glucose (Fingerstick) 101 mg/dL Current Medications Medications (Trade) Dose Ordered Sig/Afshin Route PRN Reason Start Time Stop Time Status Last Admin Dose Admin Acetaminophen (Tylenol) 650 mg PRN Q6HRS PRN PO MILD PAIN / TEMP > 100.3'F 04/14/20 15:00 Multi-Ingredient Ointment (Analgesic [place]) 1 aaron PRN QID PRN TP MUSCLE PAIN 04/14/20 15:00 Al Hydroxide/Mg Hydroxide (Mylanta Plus Xs) 15 ml PRN AFTMEALHC PRN PO DYSPEPSIA 04/14/20 15:00 Magnesium Hydroxide (Milk Of Magnesia) 2,400 mg PRN QHS PRN PO CONSTIPATION 04/14/20 15:00 Allopurinol (Zyloprim) 100 mg HS PO 04/14/20 21:00 04/20/20 20:45 Amlodipine Besylate (Norvasc) 10 mg DAILY PO 04/15/20 09:00 04/19/20 18:30 DC 04/19/20 10:18 Aripiprazole (Abilify) 2 mg DAILY PO 04/15/20 09:00 04/16/20 17:08 DC 04/16/20 10:00 Aspirin (Aspirin Chewable) 81 mg DAILYWBKFT PO 04/15/20 08:00 04/20/20 08:18 Azelastine HCl (Astelin) 2 spray BID NS 04/14/20 21:00 04/20/20 20:45 Bupropion HCl (Wellbutrin Xl) 150 mg DAILY PO 04/15/20 09:00 04/20/20 08:18 Chlorthalidone (Thalitone) 25 mg DAILY PO 04/15/20 09:00 04/19/20 18:30 DC 04/19/20 10:18 Clopidogrel Bisulfate (Plavix) 75 mg QHS PO 04/14/20 21:00 04/20/20 20:45 Coenzyme Q10 (Coenzyme Q10) 50 mg DAILY PO 04/15/20 09:00 04/20/20 08:19 Finasteride (Proscar) 5 mg DAILY PO 04/15/20 09:00 04/20/20 08:18 Levothyroxine Sodium (Synthroid) 100 mcg DAILY06 PO 04/15/20 06:00 04/20/20 05:42 Losartan Potassium (Cozaar) 50 mg DAILY PO 04/15/20 09:00 04/19/20 14:20 DC 04/19/20 10:19 Metoprolol Succinate (Toprol Xl) 100 mg DAILY PO 04/15/20 09:00 04/20/20 08:20 Fish Oil (Fish Oil) 1,000 mg DAILY PO 04/15/20 09:00 04/20/20 08:18 Quetiapine Fumarate (SEROquel) 50 mg QHS PO 04/14/20 21:00 04/14/20 16:15 DC Vitamin D (Vitamin D3) 50,000 unit WEEKLY PO 04/21/20 09:00 Colchicine (Colcrys) 0.6 mg PRN DAILY PRN PO for GOUT pain 04/14/20 15:30 Diclofenac Sodium (Voltaren) 1 aaron PRN QID PRN TP PAIN 04/14/20 15:30 Nitroglycerin (Nitrostat) 0.4 mg PRN Q5MIN PRN SL CHEST PAIN 04/14/20 15:30 Melatonin (Melatonin) 3 mg PRN QHS PRN PO INSOMNIA 04/14/20 15:30 04/18/20 20:06 Clonazepam (KlonoPIN) 0.25 mg BID PO 04/14/20 21:00 04/15/20 15:46 DC 04/15/20 09:12 Clonazepam (KlonoPIN) 0.25 mg QHS PO 04/15/20 21:00 04/17/20 23:01 DC 04/17/20 21:10 Sertraline HCl (Zoloft) 50 mg DAILY PO 04/16/20 09:00 04/20/20 23:59 04/20/20 08:19 Olanzapine (ZyPREXA ZYDIS) 2.5 mg PRN Q2HR PRN PO PSYCHOSIS 04/16/20 13:15 04/20/20 11:33 Quetiapine Fumarate (SEROquel) 12.5 mg TID@0900,1300,1700 PO 04/17/20 09:00 04/20/20 17:08 DC 04/20/20 11:33 Sertraline HCl (Zoloft) 75 mg DAILY PO 04/18/20 09:00 04/18/20 07:37 DC Sertraline HCl (Zoloft) 75 mg DAILY PO 04/18/20 09:00 04/18/20 08:23 DC Sertraline HCl (Zoloft) 75 mg DAILY PO 04/21/20 09:00 Quetiapine Fumarate (SEROquel) 12.5 mg 1300,1700 PO 04/20/20 17:15 04/20/20 17:39 Quetiapine Fumarate (SEROquel) 25 mg DAILY PO 04/21/20 09:00 Current Medications Medications (Trade) Dose Ordered Sig/Afshin Route PRN Reason Start Time Stop Time Status Last Admin Dose Admin Quetiapine Fumarate (SEROquel) 12.5 mg 1300,1700 PO 04/20/20 17:15 04/20/20 17:39 I have reviewed the current psychotropics carefully including drug interactions. Risk benefit ratio favors no change other than as noted in my dictated progress note. 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
[2020-04-21] MEDS: LEVOTHYROXINE 100 MCG TABLET PO SCH (05:49)
[2020-04-21 06:27] VITALS: BP 123/70
[2020-04-21] MEDS: CHOLECALCIFEROL (VITAMIN D3) 50,000 UNIT CAPSULE PO SCH (09:00)
[2020-04-21] MEDS: AZELASTINE NASAL SPRAY 30ML BOTTLE. NS SCH ×2 (09:00→20:47)
[2020-04-21] MEDS: QUEtiapine 25 MG TABLET. PO SCH ×3 (09:00→17:00)
--- NOTE | 2020-04-21 09:08 | PDOC ---
Exam Note: Miguel Note: This note is a late entry for 04/19/2020 covers elements not covered in my initial note. Subjective: The patient was seen face to face in the evening of 04/19/2020 with Em BAY. Discussed with nursing staff, reviewed the chart. He slept 6-3/4 hours previous night. The patient was getting somewhat hypotensive and Dr. Gottlieb is reducing his anti-hypertensives. Review of Systems: No CV, , pulmonary, eye, ENT system symptoms on review. Reliability poor. Mental Status Exam: The patient is oriented to himself. He is pleasant, verbal, interactive. Insight and judgment, recent and remote memory, attention and concentration, fund of knowledge is poor consistent with his diagnosis. No suicidal or homicidal ideation. Laboratory Data: Reviewed. Impression: Major neurocognitive disorder Alzheimer vascular with delusion, depression, behavioral disturbance. Anxiety disorder unspecified. Impulse control disorder unspecified. Plan: No change from initial note. Assessment: Vital Signs/I&O: Vital Signs Date Time Temp Pulse Resp B/P (MAP) Pulse Ox O2 Delivery O2 Flow Rate FiO2 04/21/20 06:27 97.3 62 16 123/70 (87) 93 Room Air I & O 04/20/20 04/20/20 04/21/20 15:00 23:00 07:00 Intake Total 600 ml 480 ml 120 ml Balance 600 ml 480 ml 120 ml Labs: Laboratory Tests Test 04/21/20 07:29 Glucose (Fingerstick) 93 mg/dL (70-99) Current Medications: Meds: Laboratory Tests Test 04/21/20 07:29 Glucose (Fingerstick) 93 mg/dL Current Medications Medications (Trade) Dose Ordered Sig/Afshin Route PRN Reason Start Time Stop Time Status Last Admin Dose Admin Acetaminophen (Tylenol) 650 mg PRN Q6HRS PRN PO MILD PAIN / TEMP > 100.3'F 04/14/20 15:00 Multi-Ingredient Ointment (Analgesic [place]) 1 aaron PRN QID PRN TP MUSCLE PAIN 04/14/20 15:00 Al Hydroxide/Mg Hydroxide (Mylanta Plus Xs) 15 ml PRN AFTMEALHC PRN PO DYSPEPSIA 04/14/20 15:00 Magnesium Hydroxide (Milk Of Magnesia) 2,400 mg PRN QHS PRN PO CONSTIPATION 04/14/20 15:00 Allopurinol (Zyloprim) 100 mg HS PO 04/14/20 21:00 04/20/20 20:45 Amlodipine Besylate (Norvasc) 10 mg DAILY PO 04/15/20 09:00 04/19/20 18:30 DC 04/19/20 10:18 Aripiprazole (Abilify) 2 mg DAILY PO 04/15/20 09:00 04/16/20 17:08 DC 04/16/20 10:00 Aspirin (Aspirin Chewable) 81 mg DAILYWBKFT PO 04/15/20 08:00 04/20/20 08:18 Azelastine HCl (Astelin) 2 spray BID NS 04/14/20 21:00 04/20/20 20:45 Bupropion HCl (Wellbutrin Xl) 150 mg DAILY PO 04/15/20 09:00 04/20/20 08:18 Chlorthalidone (Thalitone) 25 mg DAILY PO 04/15/20 09:00 04/19/20 18:30 DC 04/19/20 10:18 Clopidogrel Bisulfate (Plavix) 75 mg QHS PO 04/14/20 21:00 04/20/20 20:45 Coenzyme Q10 (Coenzyme Q10) 50 mg DAILY PO 04/15/20 09:00 04/20/20 08:19 Finasteride (Proscar) 5 mg DAILY PO 04/15/20 09:00 04/20/20 08:18 Levothyroxine Sodium (Synthroid) 100 mcg DAILY06 PO 04/15/20 06:00 04/21/20 05:49 Losartan Potassium (Cozaar) 50 mg DAILY PO 04/15/20 09:00 04/19/20 14:20 DC 04/19/20 10:19 Metoprolol Succinate (Toprol Xl) 100 mg DAILY PO 04/15/20 09:00 04/20/20 08:20 Fish Oil (Fish Oil) 1,000 mg DAILY PO 04/15/20 09:00 04/20/20 08:18 Quetiapine Fumarate (SEROquel) 50 mg QHS PO 04/14/20 21:00 04/14/20 16:15 DC Vitamin D (Vitamin D3) 50,000 unit WEEKLY PO 04/21/20 09:00 Colchicine (Colcrys) 0.6 mg PRN DAILY PRN PO for GOUT pain 04/14/20 15:30 Diclofenac Sodium (Voltaren) 1 aaron PRN QID PRN TP PAIN 04/14/20 15:30 Nitroglycerin (Nitrostat) 0.4 mg PRN Q5MIN PRN SL CHEST PAIN 04/14/20 15:30 Melatonin (Melatonin) 3 mg PRN QHS PRN PO INSOMNIA 04/14/20 15:30 04/18/20 20:06 Clonazepam (KlonoPIN) 0.25 mg BID PO 04/14/20 21:00 04/15/20 15:46 DC 04/15/20 09:12 Clonazepam (KlonoPIN) 0.25 mg QHS PO 04/15/20 21:00 04/17/20 23:01 DC 04/17/20 21:10 Sertraline HCl (Zoloft) 50 mg DAILY PO 04/16/20 09:00 04/20/20 23:59 DC 04/20/20 08:19 Olanzapine (ZyPREXA ZYDIS) 2.5 mg PRN Q2HR PRN PO PSYCHOSIS 04/16/20 13:15 04/20/20 11:33 Quetiapine Fumarate (SEROquel) 12.5 mg TID@0900,1300,1700 PO 04/17/20 09:00 04/20/20 17:08 DC 04/20/20 11:33 Sertraline HCl (Zoloft) 75 mg DAILY PO 04/18/20 09:00 04/18/20 07:37 DC Sertraline HCl (Zoloft) 75 mg DAILY PO 04/18/20 09:00 04/18/20 08:23 DC Sertraline HCl (Zoloft) 75 mg DAILY PO 04/21/20 09:00 Quetiapine Fumarate (SEROquel) 12.5 mg 1300,1700 PO 04/20/20 17:15 04/20/20 17:39 Quetiapine Fumarate (SEROquel) 25 mg DAILY PO 04/21/20 09:00 Current Medications Medications (Trade) Dose Ordered Sig/Afshin Route PRN Reason Start Time Stop Time Status Last Admin Dose Admin Quetiapine Fumarate (SEROquel) 12.5 mg 1300,1700 PO 04/20/20 17:15 04/20/20 17:39 I have reviewed the current psychotropics carefully including drug interactions. Risk benefit ratio favors no change other than as noted in my dictated progress note. Diagnosis: Problems: (1) Major neurocognitive disorder (2) Impulse control disorder, unspecified (3) Anxiety disorder, unspecified (4) Dementia, vascular, with depression (5) Dementia, vascular, with delusions (6) Dementia in Alzheimer's disease with depression (7) Dementia in Alzheimer's disease with delusions (8) Dementia of the Alzheimer's type with early onset with behavioral distu RENITA Wheatley MD Apr 21, 2020 09:08
--- NOTE | 2020-04-21 09:23 | PDOC ---
Exam Note: Miguel Note: This note is a late entry for 04/20/2020 covers elements not covered in my initial note. Subjective: The patient was seen face to face in the evening of 04/20/2020 with Ange BAY. Discussed with nursing staff, reviewed the chart. He slept 5-3/4 hours previous night. The patient remains confused, withdrawn, paranoid at times. Received Zyprexa at noon, exit seeking with his roommate. Review of Systems: No CV, , pulmonary, eye, ENT system symptoms on review. Reliability poor. Mental Status Exam: The patient is oriented to himself. He is pleasant, verbal, interactive. Insight and judgment, recent and remote memory, attention and concentration, fund of knowledge is poor consistent with his diagnosis. No suicidal or homicidal ideation. Laboratory Data: Reviewed. Impression: Major neurocognitive disorder Alzheimer vascular with delusion, depression, behavioral disturbance. Anxiety disorder unspecified. Impulse control disorder unspecified. Plan: No change from initial note. Assessment: Vital Signs/I&O: Vital Signs Date Time Temp Pulse Resp B/P (MAP) Pulse Ox O2 Delivery O2 Flow Rate FiO2 04/21/20 06:27 97.3 62 16 123/70 (87) 93 Room Air I & O 04/20/20 04/20/20 04/21/20 15:00 23:00 07:00 Intake Total 600 ml 480 ml 120 ml Balance 600 ml 480 ml 120 ml Labs: Laboratory Tests Test 04/21/20 07:29 Glucose (Fingerstick) 93 mg/dL (70-99) Current Medications: Meds: Laboratory Tests Test 04/21/20 07:29 Glucose (Fingerstick) 93 mg/dL Current Medications Medications (Trade) Dose Ordered Sig/Afshin Route PRN Reason Start Time Stop Time Status Last Admin Dose Admin Acetaminophen (Tylenol) 650 mg PRN Q6HRS PRN PO MILD PAIN / TEMP > 100.3'F 04/14/20 15:00 Multi-Ingredient Ointment (Analgesic [place]) 1 aarno PRN QID PRN TP MUSCLE PAIN 04/14/20 15:00 Al Hydroxide/Mg Hydroxide (Mylanta Plus Xs) 15 ml PRN AFTMEALHC PRN PO DYSPEPSIA 04/14/20 15:00 Magnesium Hydroxide (Milk Of Magnesia) 2,400 mg PRN QHS PRN PO CONSTIPATION 1/21/21 15:00 Allopurinol (Zyloprim) 100 mg HS PO 04/14/20 21:00 04/20/20 20:45 Amlodipine Besylate (Norvasc) 10 mg DAILY PO 04/15/20 09:00 04/19/20 18:30 DC 04/19/20 10:18 Aripiprazole (Abilify) 2 mg DAILY PO 04/15/20 09:00 04/16/20 17:08 DC 04/16/20 10:00 Aspirin (Aspirin Chewable) 81 mg DAILYWBKFT PO 04/15/20 08:00 04/20/20 08:18 Azelastine HCl (Astelin) 2 spray BID NS 04/14/20 21:00 04/20/20 20:45 Bupropion HCl (Wellbutrin Xl) 150 mg DAILY PO 04/15/20 09:00 04/20/20 08:18 Chlorthalidone (Thalitone) 25 mg DAILY PO 04/15/20 09:00 04/19/20 18:30 DC 04/19/20 10:18 Clopidogrel Bisulfate (Plavix) 75 mg QHS PO 04/14/20 21:00 04/20/20 20:45 Coenzyme Q10 (Coenzyme Q10) 50 mg DAILY PO 04/15/20 09:00 04/20/20 08:19 Finasteride (Proscar) 5 mg DAILY PO 04/15/20 09:00 04/20/20 08:18 Levothyroxine Sodium (Synthroid) 100 mcg DAILY06 PO 04/15/20 06:00 04/21/20 05:49 Losartan Potassium (Cozaar) 50 mg DAILY PO 04/15/20 09:00 04/19/20 14:20 DC 04/19/20 10:19 Metoprolol Succinate (Toprol Xl) 100 mg DAILY PO 04/15/20 09:00 04/20/20 08:20 Fish Oil (Fish Oil) 1,000 mg DAILY PO 04/15/20 09:00 04/20/20 08:18 Quetiapine Fumarate (SEROquel) 50 mg QHS PO 04/14/20 21:00 04/14/20 16:15 DC Vitamin D (Vitamin D3) 50,000 unit WEEKLY PO 04/21/20 09:00 Colchicine (Colcrys) 0.6 mg PRN DAILY PRN PO for GOUT pain 04/14/20 15:30 Diclofenac Sodium (Voltaren) 1 aaron PRN QID PRN TP PAIN 04/14/20 15:30 Nitroglycerin (Nitrostat) 0.4 mg PRN Q5MIN PRN SL CHEST PAIN 04/14/20 15:30 Melatonin (Melatonin) 3 mg PRN QHS PRN PO INSOMNIA 04/14/20 15:30 04/18/20 20:06 Clonazepam (KlonoPIN) 0.25 mg BID PO 04/14/20 21:00 04/15/20 15:46 DC 04/15/20 09:12 Clonazepam (KlonoPIN) 0.25 mg QHS PO 04/15/20 21:00 04/17/20 23:01 DC 04/17/20 21:10 Sertraline HCl (Zoloft) 50 mg DAILY PO 04/16/20 09:00 04/20/20 23:59 DC 04/20/20 08:19 Olanzapine (ZyPREXA ZYDIS) 2.5 mg PRN Q2HR PRN PO PSYCHOSIS 04/16/20 13:15 04/20/20 11:33 Quetiapine Fumarate (SEROquel) 12.5 mg TID@0900,1300,1700 PO 04/17/20 09:00 04/20/20 17:08 DC 04/20/20 11:33 Sertraline HCl (Zoloft) 75 mg DAILY PO 04/18/20 09:00 04/18/20 07:37 DC Sertraline HCl (Zoloft) 75 mg DAILY PO 04/18/20 09:00 04/18/20 08:23 DC Sertraline HCl (Zoloft) 75 mg DAILY PO 04/21/20 09:00 Quetiapine Fumarate (SEROquel) 12.5 mg 1300,1700 PO 04/20/20 17:15 04/20/20 17:39 Quetiapine Fumarate (SEROquel) 25 mg DAILY PO 04/21/20 09:00 Current Medications Medications (Trade) Dose Ordered Sig/Afshin Route PRN Reason Start Time Stop Time Status Last Admin Dose Admin Quetiapine Fumarate (SEROquel) 12.5 mg 1300,1700 PO 04/20/20 17:15 04/20/20 17:39 I have reviewed the current psychotropics carefully including drug interactions. Risk benefit ratio favors no change other than as noted in my dictated progress note. 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
[2020-04-21] MEDS: buPROPion XL 150 MG TAB.ER.24H PO SCH (10:08)
[2020-04-21] MEDS: FINASTERIDE 5 MG TABLET. PO SCH (10:09)
[2020-04-21] MEDS: SERTRALINE 25 MG TABLET. PO SCH (10:09)
[2020-04-21] MEDS: METOPROLOL SUCC 24HR ER 50 MG TAB.ER.24H. PO SCH (10:09)
[2020-04-21] MEDS: ASPIRIN CHEWABLE 81 MG TABLET. PO SCH (10:09)
[2020-04-21] MEDS: OMEGA-3 FATTY ACIDS/FISH OIL 1,000 MG CAPSULE. PO SCH (10:10)
[2020-04-21] MEDS: UBIDECARENONE 50 MG CAPSULE. PO SCH (10:10)
[2020-04-21 15:45] VITALS: BP 138/84
--- NOTE | 2020-04-21 16:33 | TX PLAN ---
Interdisciplinary Tx Plan Admission Information Apr 14, 2020 at 14:03 Legal Status (on Admission): Voluntary DPOA/Guardian Name: -Marlene Carpenter and Son-Damian "Elias or Kaylee Carpenter Contact Phone Number: [place] [phone] SonWill [phone] Other Contact Name: Cora Brooks Other Contact Verified Code Status: DNR Allergies: Coded Allergies: No Known Drug Allergies (Unverified , 04/14/20) Diagnoses Primary Diagnosis: Major neurocognitive disorder, Alzheimer vascular with delusion, depression, behavioral disturbance; anxiety disorder, unspecified; impulse control disorder, unspecified. Reasons for Admission: Aggressive, Delusions, Agitated, Sig. Change Sleep, Angry, Combative, Confusion/Disoriented, Poor impulse control Problem in Patient's Words: Per facility pt has had a couple of falls, has threatening behavior toward other residents and staff. He has been exit seeking. Pt has eloped from his facility and the police brought him back. Per pt , Marlene. Pt is mad at her and their son, Elias, for putting him in a facility. He is very aggressive and thinks that everyone is kidnapped and is in group home. Additional Admission Comments: Per [facility] record, pt thinks he has been kidnapped and is in group home. He is paranoid, delusional. He eloped from the facility in which he lives and police brought him back. Pt has been threatening harm to staff. He is agitated, exit seeking, has insomnia, and sundowns. Problems Active Problems: Aggression, delusions, agitation, combative, confused Inactive Problems: None noted at this time. Pt Strengths/Limitations Ability for [place]: Poor Cognitive Functioning/Ability: Poor Communication Skills/Ability: Fair Financial Resources: Good Insight/Judgement: Poor Intellectual Ability: Good Physical Health: Fair Social Skills: Fair Stability in Family: Excellent Stability in School/Work: Good Verbal Skills: Good Discharge Criteria Discharge Criteria: Able meet basic life need, Adequate arrangements @DC, Adequate self-care, Verbal commit med comply, Improved behavior Other Discharge Comments: None noted at this time. Preliminary Discharge Plan Preliminary DC Plan: Memory Care Special Precautions Fall Risk: High Initial D/C Plan Pt plan is to return to [facility] memory care facility. Identified Discharge Needs: Follow-up with PCP Currently Utilized Resources Currently Utilized Resources/P: PCP is Dr. Fadi Garrison DPOA is Marlene and alternate son Damian alfred "Elias or Fernando" Financial DPOA is dtr Miladis Living facility is [facility]; contact is Cora Brooks Referrals Community Resources: None noted at this time Identified Problems/Hx/Goals Objectives/Short-Term Goals Short Term Goals: Control abnormal behavior, Dec. Aggression, Dec. Hallucination/Delus, Dec. Symp. Depression, Medication Stabilization, Monitor Med Effects, Prevent Deterioration, Promote Coping Skill Short Term Goals in Patient's: Reduce aggression and delusions. Improve or preserve quality of life. Interventions/Frequency Staff Interventions/Frequency&: Psychiatry to assess pt three times per week for medication management. Nursing to assess behaviors, monitor medications, and complete 15 minute checks daily. Social work to see pt at least twice weekly to aid in return to placement. Activities to encourage pt to participate in group activities daily. History Vocational History: After pt graduated high school, he moved to [place] and worked for the [employer] team. 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 Education: Four years of college. Pt attended [employer] for four years and played football there. Community Follow-up PCP Community Provider/Family Inpu: Marlene, /DPOA, and Elias, son/DPOA, are actively involved with pt care and would like updates a couple times per week. Treatment Plan Explained Patient/Party Chief had this treatment plan explained to him/her as indicated by the signature below and has been given the opportunity to ask questions and make suggestions: Date: Patient/Party Chief Signature: Status Update Update Pt has been eating 75% of his meals and averaging 6.5 hours of sleep per night. Pt has been pleasantly confused and [place] Pt has been med compliant. Blood pressure medicine has been discontinued as blood pressure had been dropping when pt would stand up. Pts Klonopin will be discontinued at night. Zoloft will be increased. Plan is for pt to return to facility once stable. GIORGIO PLAZA Apr 21, 2020 16:33
[2020-04-21] MEDS: ALLOPURINOL 100 MG TABLET. PO SCH (20:44)
[2020-04-21] MEDS: CLOPIDOGREL BISULFATE 75 MG TABLET PO SCH (20:44)
--- NOTE | 2020-04-21 21:15 | PDOC ---
Exam Note: Miguel Note: Please also refer to the separate dictated note~for this date of service dictated separately.~Patient seen individually. Discussed the patient with Nursing staff reviewed the chart.~Reviewed interim history and current functioning. Reviewed vital signs,~Labs/ Radiology~and current medications noted below. Continue current treatment with the changes noted in the dictated addendum note Assessment: Vital Signs/I&O: Vital Signs Date Time Temp Pulse Resp B/P (MAP) Pulse Ox O2 Delivery O2 Flow Rate FiO2 04/21/20 15:45 97.3 69 16 138/84 (102) 95 04/21/20 06:27 Room Air I & O 04/20/20 04/20/20 04/21/20 15:00 23:00 07:00 Intake Total 600 ml 480 ml 120 ml Balance 600 ml 480 ml 120 ml Labs: Laboratory Tests Test 04/21/20 07:29 Glucose (Fingerstick) 93 mg/dL (70-99) Current Medications: Meds: Laboratory Tests Test 04/21/20 07:29 Glucose (Fingerstick) 93 mg/dL Current Medications Medications (Trade) Dose Ordered Sig/Afshin Route PRN Reason Start Time Stop Time Status Last Admin Dose Admin Acetaminophen (Tylenol) 650 mg PRN Q6HRS PRN PO MILD PAIN / TEMP > 100.3'F 04/14/20 15:00 Multi-Ingredient Ointment (Analgesic [place]) 1 aaron PRN QID PRN TP MUSCLE PAIN 04/14/20 15:00 Al Hydroxide/Mg Hydroxide (Mylanta Plus Xs) 15 ml PRN AFTMEALHC PRN PO DYSPEPSIA 04/14/20 15:00 Magnesium Hydroxide (Milk Of Magnesia) 2,400 mg PRN QHS PRN PO CONSTIPATION 04/14/20 15:00 Allopurinol (Zyloprim) 100 mg HS PO 04/14/20 21:00 04/21/20 20:44 Amlodipine Besylate (Norvasc) 10 mg DAILY PO 04/15/20 09:00 04/19/20 18:30 DC 04/19/20 10:18 Aripiprazole (Abilify) 2 mg DAILY PO 04/15/20 09:00 04/16/20 17:08 DC 04/16/20 10:00 Aspirin (Aspirin Chewable) 81 mg DAILYWBKFT PO 04/15/20 08:00 04/21/20 10:09 Azelastine HCl (Astelin) 2 spray BID NS 04/14/20 21:00 04/21/20 20:47 Bupropion HCl (Wellbutrin Xl) 150 mg DAILY PO 04/15/20 09:00 04/21/20 10:08 Chlorthalidone (Thalitone) 25 mg DAILY PO 04/15/20 09:00 04/19/20 18:30 DC 04/19/20 10:18 Clopidogrel Bisulfate (Plavix) 75 mg QHS PO 04/14/20 21:00 04/21/20 20:44 Coenzyme Q10 (Coenzyme Q10) 50 mg DAILY PO 04/15/20 09:00 04/21/20 10:10 Finasteride (Proscar) 5 mg DAILY PO 04/15/20 09:00 04/21/20 10:09 Levothyroxine Sodium (Synthroid) 100 mcg DAILY06 PO 04/15/20 06:00 04/21/20 05:49 Losartan Potassium (Cozaar) 50 mg DAILY PO 04/15/20 09:00 04/19/20 14:20 DC 04/19/20 10:19 Metoprolol Succinate (Toprol Xl) 100 mg DAILY PO 04/15/20 09:00 04/21/20 10:09 Fish Oil (Fish Oil) 1,000 mg DAILY PO 04/15/20 09:00 04/21/20 10:10 Quetiapine Fumarate (SEROquel) 50 mg QHS PO 04/14/20 21:00 04/14/20 16:15 DC Vitamin D (Vitamin D3) 50,000 unit WEEKLY PO 04/21/20 09:00 04/21/20 09:00 Colchicine (Colcrys) 0.6 mg PRN DAILY PRN PO for GOUT pain 04/14/20 15:30 Diclofenac Sodium (Voltaren) 1 aaron PRN QID PRN TP PAIN 04/14/20 15:30 Nitroglycerin (Nitrostat) 0.4 mg PRN Q5MIN PRN SL CHEST PAIN 04/14/20 15:30 Melatonin (Melatonin) 3 mg PRN QHS PRN PO INSOMNIA 04/14/20 15:30 04/18/20 20:06 Clonazepam (KlonoPIN) 0.25 mg BID PO 04/14/20 21:00 04/15/20 15:46 DC 04/15/20 09:12 Clonazepam (KlonoPIN) 0.25 mg QHS PO 04/15/20 21:00 04/17/20 23:01 DC 04/17/20 21:10 Sertraline HCl (Zoloft) 50 mg DAILY PO 04/16/20 09:00 04/20/20 23:59 DC 04/20/20 08:19 Olanzapine (ZyPREXA ZYDIS) 2.5 mg PRN Q2HR PRN PO PSYCHOSIS 04/16/20 13:15 04/20/20 11:33 Quetiapine Fumarate (SEROquel) 12.5 mg TID@0900,1300,1700 PO 04/17/20 09:00 04/20/20 17:08 DC 04/20/20 11:33 Sertraline HCl (Zoloft) 75 mg DAILY PO 04/18/20 09:00 04/18/20 07:37 DC Sertraline HCl (Zoloft) 75 mg DAILY PO 04/18/20 09:00 04/18/20 08:23 DC Sertraline HCl (Zoloft) 75 mg DAILY PO 04/21/20 09:00 04/23/20 09:00 04/21/20 10:09 Quetiapine Fumarate (SEROquel) 12.5 mg 1300,1700 PO 04/20/20 17:15 04/21/20 17:00 Quetiapine Fumarate (SEROquel) 25 mg DAILY PO 04/21/20 09:00 04/21/20 09:00 Sertraline HCl (Zoloft) 100 mg DAILY PO 04/24/20 09:00 Current Medications Medications (Trade) Dose Ordered Sig/Afshin Route PRN Reason Start Time Stop Time Status Last Admin Dose Admin Vitamin D (Vitamin D3) 50,000 unit WEEKLY PO 04/21/20 09:00 04/21/20 09:00 Sertraline HCl (Zoloft) 75 mg DAILY PO 04/21/20 09:00 04/23/20 09:00 04/21/20 10:09 Quetiapine Fumarate (SEROquel) 25 mg DAILY PO 04/21/20 09:00 04/21/20 09:00 I have reviewed the current psychotropics carefully including drug interactions. Risk benefit ratio favors no change other than as noted in my dictated progress note. Diagnosis: Problems: (1) Major neurocognitive disorder (2) Impulse control disorder, unspecified (3) Anxiety disorder, unspecified (4) Dementia, vascular, with depression (5) Dementia, vascular, with delusions (6) Dementia in Alzheimer's disease with depression (7) Dementia in Alzheimer's disease with delusions (8) Dementia of the Alzheimer's type with early onset with behavioral disturbance RENITA SAGASTUME MD Apr 21, 2020 21:15
[2020-04-22] MEDS: LEVOTHYROXINE 100 MCG TABLET PO SCH (05:55)
[2020-04-22 06:21] VITALS: BP 144/75
--- NOTE | 2020-04-22 07:50 | PDOC ---
Exam Note: Miguel Note: This note is a late entry for 04/21/2020 covers elements not covered in my initial note. Subjective: The patient was seen face to face in the morning of 04/21/2020 for a treatment team meeting with Connie Wesley and Evy (social worker delinquency prevention), Elham Bustillos, activity therapy and Em [facility]. Discussed with nursing staff, reviewed the chart. He slept 6-1/4 hours previous night. The patient has been confused, exit seeking, otherwise, pleasant. He had a fall on Saturday. No injuries noted. Review of Systems: No CV, , pulmonary, eye, ENT system symptoms on review. Reliability poor. Mental Status Exam: The patient is oriented to himself. Insight and judgment, recent and remote memory, attention and concentration, fund of knowledge is poor consistent with his diagnosis. Laboratory Data: Reviewed. Impression: Major neurocognitive disorder Alzheimer vascular with delusion, depression, behavioral disturbance. Anxiety disorder unspecified. Impulse control disorder unspecified. Plan: No change from initial note. We will go ahead and stop the Klonopin 0.25 mg h.s. He continues to be depressed, withdrawn, anxious. After he has been on Zoloft 75 mg a day for 3 days we will increase to 100 mg a day. Continue Seroquel 12.5 mg t.i.d., Zyprexa p.r.n., Wellbutrin XL 150 mg. We may need to increase this in due course. Assessment: Vital Signs/I&O: Vital Signs Date Time Temp Pulse Resp B/P (MAP) Pulse Ox O2 Delivery O2 Flow Rate FiO2 04/22/20 06:21 97.6 66 18 144/75 (98) 97 Room Air I & O 0 04/21/20 04/21/20 04/22/20 15:00 23:00 07:00 Intake Total 720 ml 340 ml Balance 720 ml 340 ml Labs: Laboratory Tests Test 04/22/20 07:44 Glucose (Fingerstick) 88 mg/dL (70-99) Current Medications: Meds: Laboratory Tests Test 04/22/20 07:44 Glucose (Fingerstick) 88 mg/dL Current Medications Medications (Trade) Dose Ordered Sig/Afshin Route PRN Reason Start Time Stop Time Status Last Admin Dose Admin Acetaminophen (Tylenol) 650 mg PRN Q6HRS PRN PO MILD PAIN / TEMP > 100.3'F 04/14/20 15:00 Multi-Ingredient Ointment (Analgesic [place]) 1 aaron PRN QID PRN TP MUSCLE PAIN 04/14/20 15:00 Al Hydroxide/Mg Hydroxide (Mylanta Plus Xs) 15 ml PRN AFTMEALHC PRN PO DYSPEPSIA 04/14/20 15:00 Magnesium Hydroxide (Milk Of Magnesia) 2,400 mg PRN QHS PRN PO CONSTIPATION 04/14/20 15:00 Allopurinol (Zyloprim) 100 mg HS PO 04/14/20 21:00 04/21/20 20:44 Amlodipine Besylate (Norvasc) 10 mg DAILY PO 04/15/20 09:00 04/19/20 18:30 DC 04/19/20 10:18 Aripiprazole (Abilify) 2 mg DAILY PO 04/15/20 09:00 04/16/20 17:08 DC 04/16/20 10:00 Aspirin (Aspirin Chewable) 81 mg DAILYWBKFT PO 04/15/20 08:00 04/21/20 10:09 Azelastine HCl (Astelin) 2 spray BID NS 04/14/20 21:00 04/21/20 20:47 Bupropion HCl (Wellbutrin Xl) 150 mg DAILY PO 04/15/20 09:00 04/21/20 10:08 Chlorthalidone (Thalitone) 25 mg DAILY PO 04/15/20 09:00 04/19/20 18:30 DC 04/19/20 10:18 Clopidogrel Bisulfate (Plavix) 75 mg QHS PO 04/14/20 21:00 04/21/20 20:44 Coenzyme Q10 (Coenzyme Q10) 50 mg DAILY PO 04/15/20 09:00 04/21/20 10:10 Finasteride (Proscar) 5 mg DAILY PO 04/15/20 09:00 04/21/20 10:09 Levothyroxine Sodium (Synthroid) 100 mcg DAILY06 PO 04/15/20 06:00 04/22/20 05:55 Losartan Potassium (Cozaar) 50 mg DAILY PO 04/15/20 09:00 04/19/20 14:20 DC 04/19/20 10:19 Metoprolol Succinate (Toprol Xl) 100 mg DAILY PO 04/15/20 09:00 04/21/20 10:09 Fish Oil (Fish Oil) 1,000 mg DAILY PO 04/15/20 09:00 04/21/20 10:10 Quetiapine Fumarate (SEROquel) 50 mg QHS PO 04/14/20 21:00 04/14/20 16:15 DC Vitamin D (Vitamin D3) 50,000 unit WEEKLY PO 04/21/20 09:00 04/21/20 09:00 Colchicine (Colcrys) 0.6 mg PRN DAILY PRN PO for GOUT pain 04/14/20 15:30 Diclofenac Sodium (Voltaren) 1 aaron PRN QID PRN TP PAIN 04/14/20 15:30 Nitroglycerin (Nitrostat) 0.4 mg PRN Q5MIN PRN SL CHEST PAIN 04/14/20 15:30 Melatonin (Melatonin) 3 mg PRN QHS PRN PO INSOMNIA 04/14/20 15:30 04/18/20 20:06 Clonazepam (KlonoPIN) 0.25 mg BID PO 04/14/20 21:00 04/15/20 15:46 DC 04/15/20 09:12 Clonazepam (KlonoPIN) 0.25 mg QHS PO 04/15/20 21:00 04/17/20 23:01 DC 04/17/20 21:10 Sertraline HCl (Zoloft) 50 mg DAILY PO 04/16/20 09:00 04/20/20 23:59 DC 04/20/20 08:19 Olanzapine (ZyPREXA ZYDIS) 2.5 mg PRN Q2HR PRN PO PSYCHOSIS 04/16/20 13:15 04/20/20 11:33 Quetiapine Fumarate (SEROquel) 12.5 mg TID@0900,1300,1700 PO 04/17/20 09:00 04/20/20 17:08 DC 04/20/20 11:33 Sertraline HCl (Zoloft) 75 mg DAILY PO 04/18/20 09:00 04/18/20 07:37 DC Sertraline HCl (Zoloft) 75 mg DAILY PO 04/18/20 09:00 04/18/20 08:23 DC Sertraline HCl (Zoloft) 75 mg DAILY PO 04/21/20 09:00 04/23/20 09:00 04/21/20 10:09 Quetiapine Fumarate (SEROquel) 12.5 mg 1300,1700 PO 04/20/20 17:15 04/21/20 17:00 Quetiapine Fumarate (SEROquel) 25 mg DAILY PO 04/21/20 09:00 04/21/20 09:00 Sertraline HCl (Zoloft) 100 mg DAILY PO 04/24/20 09:00 Current Medications Medications (Trade) Dose Ordered Sig/Afshin Route PRN Reason Start Time Stop Time Status Last Admin Dose Admin Vitamin D (Vitamin D3) 50,000 unit WEEKLY PO 04/21/20 09:00 04/21/20 09:00 Sertraline HCl (Zoloft) 75 mg DAILY PO 04/21/20 09:00 04/23/20 09:00 04/21/20 10:09 Quetiapine Fumarate (SEROquel) 25 mg DAILY PO 04/21/20 09:00 04/21/20 09:00 I have reviewed the current psychotropics carefully including drug interactions. Risk benefit ratio favors no change other than as noted in my dictated progress note. Diagnosis: Problems: (1) Major neurocognitive disorder (2) Impulse control disorder, unspecified (3) Anxiety disorder, unspecified (4) Dementia, vascular, with depression (5) Dementia, vascular, with delusions (6) Dementia in Alzheimer's disease with depression (7) Dementia in Alzheimer's disease with delusions (8) Dementia of the Alzheimer's type with early onset with behavioral disturbance RENITA SAGASTUME MD Apr 22, 2020 07:50
[2020-04-22] MEDS: AZELASTINE NASAL SPRAY 30ML BOTTLE. NS SCH ×2 (09:00→19:44)
[2020-04-22] MEDS: SERTRALINE 25 MG TABLET. PO SCH (09:38)
[2020-04-22] MEDS: QUEtiapine 25 MG TABLET. PO SCH ×3 (09:38→16:44)
[2020-04-22] MEDS: OMEGA-3 FATTY ACIDS/FISH OIL 1,000 MG CAPSULE. PO SCH (09:38)
[2020-04-22] MEDS: UBIDECARENONE 50 MG CAPSULE. PO SCH (09:39)
[2020-04-22] MEDS: buPROPion XL 150 MG TAB.ER.24H PO SCH (09:39)
[2020-04-22] MEDS: ASPIRIN CHEWABLE 81 MG TABLET. PO SCH (09:39)
[2020-04-22] MEDS: FINASTERIDE 5 MG TABLET. PO SCH (09:39)
[2020-04-22] MEDS: METOPROLOL SUCC 24HR ER 50 MG TAB.ER.24H. PO SCH (09:39)
[2020-04-22 16:25] VITALS: BP 153/88
[2020-04-22] MEDS: ALLOPURINOL 100 MG TABLET. PO SCH (19:44)
[2020-04-22] MEDS: CLOPIDOGREL BISULFATE 75 MG TABLET PO SCH (19:45)
--- NOTE | 2020-04-22 21:13 | PDOC ---
Exam Note: Miguel Note: Please also refer to the separate dictated note~for this date of service dictated separately.~Patient seen individually. Discussed the patient with Nursing staff reviewed the chart.~Reviewed interim history and current functioning. Reviewed vital signs,~Labs/ Radiology~and current medications noted below. Continue current treatment with the changes noted in the dictated addendum note Assessment: Vital Signs/I&O: Vital Signs Date Time Temp Pulse Resp B/P (MAP) Pulse Ox O2 Delivery O2 Flow Rate FiO2 04/22/20 16:25 97.5 67 20 153/88 (109) 100 Room Air I & O 04/21/20 04/21/20 04/22/20 15:00 23:00 07:00 Intake Total 720 ml 340 ml Balance 720 ml 340 ml Labs: Laboratory Tests Test 04/22/20 07:44 Glucose (Fingerstick) 88 mg/dL (70-99) Current Medications: Meds: Laboratory Tests Test 04/22/20 07:44 Glucose (Fingerstick) 88 mg/dL Current Medications Medications (Trade) Dose Ordered Sig/Afshin Route PRN Reason Start Time Stop Time Status Last Admin Dose Admin Acetaminophen (Tylenol) 650 mg PRN Q6HRS PRN PO MILD PAIN / TEMP > 100.3'F 04/14/20 15:00 Multi-Ingredient Ointment (Analgesic [place]) 1 aaron PRN QID PRN TP MUSCLE PAIN 04/14/20 15:00 Al Hydroxide/Mg Hydroxide (Mylanta Plus Xs) 15 ml PRN AFTMEALHC PRN PO DYSPEPSIA 04/14/20 15:00 Magnesium Hydroxide (Milk Of Magnesia) 2,400 mg PRN QHS PRN PO CONSTIPATION 04/14/20 15:00 Allopurinol (Zyloprim) 100 mg HS PO 04/14/20 21:00 04/22/20 19:44 Amlodipine Besylate (Norvasc) 10 mg DAILY PO 04/15/20 09:00 04/19/20 18:30 DC 04/19/20 10:18 Aripiprazole (Abilify) 2 mg DAILY PO 04/15/20 09:00 04/16/20 17:08 DC 04/16/20 10:00 Aspirin (Aspirin Chewable) 81 mg DAILYWBKFT PO 04/15/20 08:00 04/22/20 09:39 Azelastine HCl (Astelin) 2 spray BID NS 04/14/20 21:00 04/22/20 19:44 Bupropion HCl (Wellbutrin Xl) 150 mg DAILY PO 04/15/20 09:00 04/22/20 09:39 Chlorthalidone (Thalitone) 25 mg DAILY PO 04/15/20 09:00 04/19/20 18:30 DC 04/19/20 10:18 Clopidogrel Bisulfate (Plavix) 75 mg QHS PO 04/14/20 21:00 04/22/20 19:45 Coenzyme Q10 (Coenzyme Q10) 50 mg DAILY PO 04/15/20 09:00 04/22/20 09:39 Finasteride (Proscar) 5 mg DAILY PO 04/15/20 09:00 04/22/20 09:39 Levothyroxine Sodium (Synthroid) 100 mcg DAILY06 PO 04/15/20 06:00 04/22/20 05:55 Losartan Potassium (Cozaar) 50 mg DAILY PO 04/15/20 09:00 04/19/20 14:20 DC 04/19/20 10:19 Metoprolol Succinate (Toprol Xl) 100 mg DAILY PO 04/15/20 09:00 04/22/20 09:39 Fish Oil (Fish Oil) 1,000 mg DAILY PO 04/15/20 09:00 04/22/20 09:38 Quetiapine Fumarate (SEROquel) 50 mg QHS PO 04/14/20 21:00 04/14/20 16:15 DC Vitamin D (Vitamin D3) 50,000 unit WEEKLY PO 04/21/20 09:00 04/21/20 09:00 Colchicine (Colcrys) 0.6 mg PRN DAILY PRN PO for GOUT pain 04/14/20 15:30 Diclofenac Sodium (Voltaren) 1 aaron PRN QID PRN TP PAIN 04/14/20 15:30 Nitroglycerin (Nitrostat) 0.4 mg PRN Q5MIN PRN SL CHEST PAIN 04/14/20 15:30 Melatonin (Melatonin) 3 mg PRN QHS PRN PO INSOMNIA 04/14/20 15:30 04/18/20 20:06 Clonazepam (KlonoPIN) 0.25 mg BID PO 04/14/20 21:00 04/15/20 15:46 DC 04/15/20 09:12 Clonazepam (KlonoPIN) 0.25 mg QHS PO 04/15/20 21:00 04/17/20 23:01 DC 04/17/20 21:10 Sertraline HCl (Zoloft) 50 mg DAILY PO 04/16/20 09:00 04/20/20 23:59 DC 04/20/20 08:19 Olanzapine (ZyPREXA ZYDIS) 2.5 mg PRN Q2HR PRN PO PSYCHOSIS 04/16/20 13:15 04/20/20 11:33 Quetiapine Fumarate (SEROquel) 12.5 mg TID@0900,1300,1700 PO 04/17/20 09:00 04/20/20 17:08 DC 04/20/20 11:33 Sertraline HCl (Zoloft) 75 mg DAILY PO 04/18/20 09:00 04/18/20 07:37 DC Sertraline HCl (Zoloft) 75 mg DAILY PO 04/18/20 09:00 04/18/20 08:23 DC Sertraline HCl (Zoloft) 75 mg DAILY PO 04/21/20 09:00 04/23/20 09:00 04/22/20 09:38 Quetiapine Fumarate (SEROquel) 12.5 mg 1300,1700 PO 04/20/20 17:15 04/22/20 16:44 Quetiapine Fumarate (SEROquel) 25 mg DAILY PO 04/21/20 09:00 04/22/20 09:38 Sertraline HCl (Zoloft) 100 mg DAILY PO 04/24/20 09:00 I have reviewed the current psychotropics carefully including drug interactions. Risk benefit ratio favors no change other than as noted in my dictated progress note. Diagnosis: Problems: (1) Major neurocognitive disorder (2) Impulse control disorder, unspecified (3) Anxiety disorder, unspecified (4) Dementia, vascular, with depression (5) Dementia, vascular, with delusions (6) Dementia in Alzheimer's disease with depression (7) Dementia in Alzheimer's disease with delusions (8) Dementia of the Alzheimer's type with early onset with behavioral disturbance RENITA SAGASTUME MD Apr 22, 2020 21:12
[2020-04-23] MEDS: LEVOTHYROXINE 100 MCG TABLET PO SCH (05:28)
[2020-04-23 06:22] VITALS: BP 159/82
[2020-04-23] MEDS: METOPROLOL SUCC 24HR ER 50 MG TAB.ER.24H. PO SCH (07:56)
[2020-04-23] MEDS: buPROPion XL 150 MG TAB.ER.24H PO SCH (07:57)
[2020-04-23] MEDS: ASPIRIN CHEWABLE 81 MG TABLET. PO SCH (07:57)
[2020-04-23] MEDS: UBIDECARENONE 50 MG CAPSULE. PO SCH (07:57)
[2020-04-23] MEDS: FINASTERIDE 5 MG TABLET. PO SCH (07:57)
[2020-04-23] MEDS: QUEtiapine 25 MG TABLET. PO SCH ×3 (07:57→18:13)
[2020-04-23] MEDS: SERTRALINE 25 MG TABLET. PO SCH (07:57)
[2020-04-23] MEDS: OMEGA-3 FATTY ACIDS/FISH OIL 1,000 MG CAPSULE. PO SCH (07:57)
[2020-04-23] MEDS: AZELASTINE NASAL SPRAY 30ML BOTTLE. NS SCH ×2 (07:58→19:40)
[2020-04-23 15:00] VITALS: BP 114/78
[2020-04-23] MEDS: CLOPIDOGREL BISULFATE 75 MG TABLET PO SCH (19:41)
[2020-04-23] MEDS: ALLOPURINOL 100 MG TABLET. PO SCH (19:41)
--- NOTE | 2020-04-23 21:06 | PDOC ---
Exam Note: Miguel Note: Please also refer to the separate dictated note~for this date of service dictated separately.~Patient seen individually. Discussed the patient with Nursing staff reviewed the chart.~Reviewed interim history and current functioning. Reviewed vital signs,~Labs/ Radiology~and current medications noted below. Continue current treatment with the changes noted in the dictated addendum note Assessment: Vital Signs/I&O: Vital Signs Date Time Temp Pulse Resp B/P (MAP) Pulse Ox O2 Delivery O2 Flow Rate FiO2 04/23/20 15:00 98.3 76 20 114/78 (90) 98 Room Air I & O 04/22/20 04/22/20 04/23/20 15:00 23:00 07:00 Intake Total 600 ml 340 ml Balance 600 ml 340 ml Current Medications: Meds: Current Medications Medications (Trade) Dose Ordered Sig/Afshin Route PRN Reason Start Time Stop Time Status Last Admin Dose Admin Acetaminophen (Tylenol) 650 mg PRN Q6HRS PRN PO MILD PAIN / TEMP > 100.3'F 04/14/20 15:00 Multi-Ingredient Ointment (Analgesic [place]) 1 aaron PRN QID PRN TP MUSCLE PAIN 04/14/20 15:00 Al Hydroxide/Mg Hydroxide (Mylanta Plus Xs) 15 ml PRN AFTMEALHC PRN PO DYSPEPSIA 04/14/20 15:00 Magnesium Hydroxide (Milk Of Magnesia) 2,400 mg PRN QHS PRN PO CONSTIPATION 04/14/20 15:00 Allopurinol (Zyloprim) 100 mg HS PO 04/14/20 21:00 04/23/20 19:41 Amlodipine Besylate (Norvasc) 10 mg DAILY PO 04/15/20 09:00 04/19/20 18:30 DC 04/19/20 10:18 Aripiprazole (Abilify) 2 mg DAILY PO 04/15/20 09:00 04/16/20 17:08 DC 04/16/20 10:00 Aspirin (Aspirin Chewable) 81 mg DAILYWBKFT PO 04/15/20 08:00 04/23/20 07:57 Azelastine HCl (Astelin) 2 spray BID NS 04/14/20 21:00 04/23/20 19:40 Bupropion HCl (Wellbutrin Xl) 150 mg DAILY PO 04/15/20 09:00 04/23/20 07:57 Chlorthalidone (Thalitone) 25 mg DAILY PO 04/15/20 09:00 04/19/20 18:30 DC 04/19/20 10:18 Clopidogrel Bisulfate (Plavix) 75 mg QHS PO 04/14/20 21:00 04/23/20 19:41 Coenzyme Q10 (Coenzyme Q10) 50 mg DAILY PO 04/15/20 09:00 04/23/20 07:57 Finasteride (Proscar) 5 mg DAILY PO 04/15/20 09:00 04/23/20 07:57 Levothyroxine Sodium (Synthroid) 100 mcg DAILY06 PO 04/15/20 06:00 04/23/20 05:28 Losartan Potassium (Cozaar) 50 mg DAILY PO 04/15/20 09:00 04/19/20 14:20 DC 04/19/20 10:19 Metoprolol Succinate (Toprol Xl) 100 mg DAILY PO 04/15/20 09:00 04/23/20 07:56 Fish Oil (Fish Oil) 1,000 mg DAILY PO 04/15/20 09:00 04/23/20 07:57 Quetiapine Fumarate (SEROquel) 50 mg QHS PO 04/14/20 21:00 04/14/20 16:15 DC Vitamin D (Vitamin D3) 50,000 unit WEEKLY PO 04/21/20 09:00 04/21/20 09:00 Colchicine (Colcrys) 0.6 mg PRN DAILY PRN PO for GOUT pain 04/14/20 15:30 Diclofenac Sodium (Voltaren) 1 aaron PRN QID PRN TP PAIN 04/14/20 15:30 Nitroglycerin (Nitrostat) 0.4 mg PRN Q5MIN PRN SL CHEST PAIN 04/14/20 15:30 Melatonin (Melatonin) 3 mg PRN QHS PRN PO INSOMNIA 04/14/20 15:30 04/18/20 20:06 Clonazepam (KlonoPIN) 0.25 mg BID PO 04/14/20 21:00 04/15/20 15:46 DC 04/15/20 09:12 Clonazepam (KlonoPIN) 0.25 mg QHS PO 04/15/20 21:00 04/17/20 23:01 DC 04/17/20 21:10 Sertraline HCl (Zoloft) 50 mg DAILY PO 04/16/20 09:00 04/20/20 23:59 DC 04/20/20 08:19 Olanzapine (ZyPREXA ZYDIS) 2.5 mg PRN Q2HR PRN PO PSYCHOSIS 04/16/20 13:15 04/20/20 11:33 Quetiapine Fumarate (SEROquel) 12.5 mg TID@0900,1300,1700 PO 04/17/20 09:00 04/20/20 17:08 DC 04/20/20 11:33 Sertraline HCl (Zoloft) 75 mg DAILY PO 04/18/20 09:00 04/18/20 07:37 DC Sertraline HCl (Zoloft) 75 mg DAILY PO 04/18/20 09:00 04/18/20 08:23 DC Sertraline HCl (Zoloft) 75 mg DAILY PO 04/21/20 09:00 04/23/20 09:00 DC 04/23/20 07:57 Quetiapine Fumarate (SEROquel) 12.5 mg 1300,1700 PO 04/20/20 17:15 04/23/20 18:13 Quetiapine Fumarate (SEROquel) 25 mg DAILY PO 04/21/20 09:00 04/23/20 07:57 Sertraline HCl (Zoloft) 100 mg DAILY PO 04/24/20 09:00 I have reviewed the current psychotropics carefully including drug interactions. Risk benefit ratio favors no change other than as noted in my dictated progress note. 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
[2020-04-24] MEDS: LEVOTHYROXINE 100 MCG TABLET PO SCH (05:32)
[2020-04-24 06:40] VITALS: BP 143/79
[2020-04-24] MEDS: OMEGA-3 FATTY ACIDS/FISH OIL 1,000 MG CAPSULE. PO SCH (07:24)
[2020-04-24] MEDS: UBIDECARENONE 50 MG CAPSULE. PO SCH (07:58)
[2020-04-24] MEDS: SERTRALINE 100 MG TABLET. PO SCH (07:59)
[2020-04-24] MEDS: METOPROLOL SUCC 24HR ER 50 MG TAB.ER.24H. PO SCH (07:59)
[2020-04-24] MEDS: ASPIRIN CHEWABLE 81 MG TABLET. PO SCH (07:59)
[2020-04-24] MEDS: QUEtiapine 25 MG TABLET. PO SCH ×3 (08:00→17:08)
[2020-04-24] MEDS: buPROPion XL 150 MG TAB.ER.24H PO SCH (08:00)
[2020-04-24] MEDS: AZELASTINE NASAL SPRAY 30ML BOTTLE. NS SCH ×2 (08:00→20:27)
[2020-04-24] MEDS: FINASTERIDE 5 MG TABLET. PO SCH (08:00)
[2020-04-24 14:32] LABS: BASO % 1 % (0-3); EOS # 0.1 x10^3/uL (0.0-0.7); EOS % 2 % (0-3); HEMATOCRIT 34.3 % (39.0-53.0); HEMOGLOBIN 11.4 g/dL (13.0-17.5); LYMPH % 16 % (24-48); MEAN CORPUSCULAR HEMOGLOBIN 34 pg (25-35); MEAN CORPUSCULAR HGB CONC 33 g/dL (31-37); MEAN CORPUSCULAR VOLUME 102 fL (79-100); MONO # 0.4 x10^3/uL (0.0-1.1); MONO % 6 % (0-9); NEUT # 4.9 x10^3uL (1.8-7.7); NEUT % 75 % (31-73); PLATELET COUNT 222 x10^3/uL (140-400); RED BLOOD COUNT 3.36 x10^6/uL (4.30-5.70); WHITE BLOOD COUNT 6.5 x10^3/uL (4.0-11.0)
[2020-04-24 16:44] VITALS: BP 135/83
[2020-04-24 17:56] LABS: ALBUMIN 3.3 g/dL (3.4-5.0); ALBUMIN/GLOBULIN RATIO 0.8 (1.0-1.7); CALCIUM 8.5 mg/dL (8.5-10.1); CREATININE 1.9 mg/dL (0.7-1.3); GFR 34.1; POTASSIUM 4.1 mmol/L (3.5-5.1); TOTAL BILIRUBIN 0.3 mg/dL (0.2-1.0); TOTAL PROTEIN 7.5 g/dL (6.4-8.2)
[2020-04-24] MEDS: ALLOPURINOL 100 MG TABLET. PO SCH (20:26)
[2020-04-24] MEDS: CLOPIDOGREL BISULFATE 75 MG TABLET PO SCH (20:26)
--- NOTE | 2020-04-24 21:16 | PDOC ---
Exam Note: Miguel Note: This note is a late entry for 04/22/2020 covers elements not covered in my initial note. Subjective: The patient was seen face to face in the morning of 04/22/2020 for a treatment team meeting Evy (nursing home social worker), and Natali BAY and the patients son Elisa attended the treatment team meeting. We have reviewed the patients history at length, diagnoses, current psychotropics, discussion of psychotropic medications and non-psychopharmacological interventions to help with his agitation. The patient slept 5-3/4 hours previous night. Review of Systems: No CV, , pulmonary, eye, ENT system symptoms on review. Reliability poor. Mental Status Exam: The patient is oriented to himself. Insight and judgment, recent and remote memory, attention and concentration, fund of knowledge is poor consistent with his diagnosis. Laboratory Data: Reviewed. Impression: Major neurocognitive disorder Alzheimer vascular with delusion, depression, behavioral disturbance. Anxiety disorder unspecified. Impulse control disorder unspecified. Plan: No change from initial note. We had lengthy discussion with the patients diagnoses, treatment options. Assessment: Vital Signs/I&O: Vital Signs Date Time Temp Pulse Resp B/P (MAP) Pulse Ox O2 Delivery O2 Flow Rate FiO2 04/24/20 16:44 97.8 87 20 135/83 (100) 100 04/24/20 06:40 Room Air I & O 04/23/20 04/23/20 04/24/20 15:00 23:00 07:00 Intake Total 360 ml 340 ml Balance 360 ml 340 ml Labs: Laboratory Tests Test 04/24/20 07:55 04/24/20 13:40 Glucose (Fingerstick) 83 mg/dL (70-99) White Blood Count 6.5 x10^3/uL (4.0-11.0) Red Blood Count 3.36 x10^6/uL (4.30-5.70) L Hemoglobin 11.4 g/dL (13.0-17.5) L Hematocrit 34.3 % (39.0-53.0) L Mean Corpuscular Volume 102 fL (79-100) H Mean Corpuscular Hemoglobin 34 pg (25-35) Mean Corpuscular Hemoglobin Concent 33 g/dL (31-37) Red Cell Distribution Width 14.0 % (11.5-14.5) Platelet Count 222 x10^3/uL (140-400) Neutrophils (%) (Auto) 75 % (31-73) H Lymphocytes (%) (Auto) 16 % (24-48) L Monocytes (%) (Auto) 6 % (0-9) Eosinophils (%) (Auto) 2 % (0-3) Basophils (%) (Auto) 1 % (0-3) Neutrophils # (Auto) 4.9 x10^3uL (1.8-7.7) Lymphocytes # (Auto) 1.0 x10^3/uL (1.0-4.8) Monocytes # (Auto) 0.4 x10^3/uL (0.0-1.1) Eosinophils # (Auto) 0.1 x10^3/uL (0.0-0.7) Basophils # (Auto) 0.0 x10^3/uL (0.0-0.2) Sodium Level 138 mmol/L (136-145) Potassium Level 4.1 mmol/L (3.5-5.1) Chloride Level 104 mmol/L (98-107) Carbon Dioxide Level 30 mmol/L (21-32) Anion Gap 4 (6-14) L Blood Urea Nitrogen 36 mg/dL (8-26) H Creatinine 1.9 mg/dL (0.7-1.3) H Estimated GFR (Cockcroft-Gault) 34.1 BUN/Creatinine Ratio 19 (6-20) Glucose Level 214 mg/dL (70-99) H Calcium Level 8.5 mg/dL (8.5-10.1) Total Bilirubin 0.3 mg/dL (0.2-1.0) Aspartate Amino Transferase (AST) 35 U/L (15-37) Alanine Aminotransferase (ALT) 52 U/L (16-63) Alkaline Phosphatase 86 U/L (46-116) Total Protein 7.5 g/dL (6.4-8.2) Albumin 3.3 g/dL (3.4-5.0) L Albumin/Globulin Ratio 0.8 (1.0-1.7) L Current Medications: Meds: Current Medications Medications (Trade) Dose Ordered Sig/Afshin Route PRN Reason Start Time Stop Time Status Last Admin Dose Admin Sertraline HCl (Zoloft) 100 mg DAILY PO 04/24/20 09:00 1/31/21 07:59 I have reviewed the current psychotropics carefully including drug interactions. Risk benefit ratio favors no change other than as noted in my dictated progress note. 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
[2020-04-24] MEDS: MELATONIN 3 MG TABLET PO PRN (21:42)
--- NOTE | 2020-04-24 21:45 | PDOC ---
Exam Note: Miguel Note: This note is a late entry for 04/23/2020 covers elements not covered in my initial note. Subjective: The patient was seen face to face in the evening of 04/23/2020 with Kendra BAY. Discussed with nursing staff, reviewed the chart. He slept 8-3/4 hours previous night. The patient had a fall outsole leveler. CT head was negative. He was seen by Dr. Hernandez. He has had no falls rest of the day. He seems to tag along with the other demented patient who was trying to elope from the unit. Blood pressure is no longer hypotensive to account for his unsteady gait and falls. BP earlier today was 159/82. The patient followed me around the unit. As I went on rounds he is wanting to be discharged. Review of Systems: No CV, , pulmonary, eye, ENT system symptoms on review. He is unaware where he is. Mental Status Exam: The patient is oriented to himself. Insight and judgment, recent and remote memory, attention and concentration, fund of knowledge is poor consistent with his diagnosis. Laboratory Data: Reviewed. Impression: Major neurocognitive disorder Alzheimer vascular with delusion, depression, behavioral disturbance. Anxiety disorder unspecified. Impulse control disorder unspecified. Plan: No change from initial note. Assessment: Vital Signs/I&O: Vital Signs Date Time Temp Pulse Resp B/P (MAP) Pulse Ox O2 Delivery O2 Flow Rate FiO2 04/24/20 16:44 97.8 87 20 135/83 (100) 100 04/24/20 06:40 Room Air I & O 04/23/20 04/23/20 04/24/20 15:00 23:00 07:00 Intake Total 360 ml 340 ml Balance 360 ml 340 ml Labs: Laboratory Tests Test 04/24/20 07:55 04/24/20 13:40 Glucose (Fingerstick) 83 mg/dL (70-99) White Blood Count 6.5 x10^3/uL (4.0-11.0) Red Blood Count 3.36 x10^6/uL (4.30-5.70) L Hemoglobin 11.4 g/dL (13.0-17.5) L Hematocrit 34.3 % (39.0-53.0) L Mean Corpuscular Volume 102 fL (79-100) H Mean Corpuscular Hemoglobin 34 pg (25-35) Mean Corpuscular Hemoglobin Concent 33 g/dL (31-37) Red Cell Distribution Width 14.0 % (11.5-14.5) Platelet Count 222 x10^3/uL (140-400) Neutrophils (%) (Auto) 75 % (31-73) H Lymphocytes (%) (Auto) 16 % (24-48) L Monocytes (%) (Auto) 6 % (0-9) Eosinophils (%) (Auto) 2 % (0-3) Basophils (%) (Auto) 1 % (0-3) Neutrophils # (Auto) 4.9 x10^3uL (1.8-7.7) Lymphocytes # (Auto) 1.0 x10^3/uL (1.0-4.8) Monocytes # (Auto) 0.4 x10^3/uL (0.0-1.1) Eosinophils # (Auto) 0.1 x10^3/uL (0.0-0.7) Basophils # (Auto) 0.0 x10^3/uL (0.0-0.2) Sodium Level 138 mmol/L (136-145) Potassium Level 4.1 mmol/L (3.5-5.1) Chloride Level 104 mmol/L (98-107) Carbon Dioxide Level 30 mmol/L (21-32) Anion Gap 4 (6-14) L Blood Urea Nitrogen 36 mg/dL (8-26) H Creatinine 1.9 mg/dL (0.7-1.3) H Estimated GFR (Cockcroft-Gault) 34.1 BUN/Creatinine Ratio 19 (6-20) Glucose Level 214 mg/dL (70-99) H Calcium Level 8.5 mg/dL (8.5-10.1) Total Bilirubin 0.3 mg/dL (0.2-1.0) Aspartate Amino Transferase (AST) 35 U/L (15-37) Alanine Aminotransferase (ALT) 52 U/L (16-63) Alkaline Phosphatase 86 U/L (46-116) Total Protein 7.5 g/dL (6.4-8.2) Albumin 3.3 g/dL (3.4-5.0) L Albumin/Globulin Ratio 0.8 (1.0-1.7) L Current Medications: Meds: Laboratory Tests Test 04/24/20 07:55 04/24/20 13:40 Glucose (Fingerstick) 83 mg/dL White Blood Count 6.5 x10^3/uL Red Blood Count 3.36 x10^6/uL Hemoglobin 11.4 g/dL Hematocrit 34.3 % Mean Corpuscular Volume 102 fL Mean Corpuscular Hemoglobin 34 pg Mean Corpuscular Hemoglobin Concent 33 g/dL Red Cell Distribution Width 14.0 % Platelet Count 222 x10^3/uL Neutrophils (%) (Auto) 75 % Lymphocytes (%) (Auto) 16 % Monocytes (%) (Auto) 6 % Eosinophils (%) (Auto) 2 % Basophils (%) (Auto) 1 % Neutrophils # (Auto) 4.9 x10^3uL Lymphocytes # (Auto) 1.0 x10^3/uL Monocytes # (Auto) 0.4 x10^3/uL Eosinophils # (Auto) 0.1 x10^3/uL Basophils # (Auto) 0.0 x10^3/uL Sodium Level 138 mmol/L Potassium Level 4.1 mmol/L Chloride Level 104 mmol/L Carbon Dioxide Level 30 mmol/L Anion Gap 4 Blood Urea Nitrogen 36 mg/dL Creatinine 1.9 mg/dL Estimated GFR (Cockcroft-Gault) 34.1 BUN/Creatinine Ratio 19 Glucose Level 214 mg/dL Calcium Level 8.5 mg/dL Total Bilirubin 0.3 mg/dL Aspartate Amino Transf (AST/SGOT) 35 U/L Alanine Aminotransferase (ALT/SGPT) 52 U/L Alkaline Phosphatase 86 U/L Total Protein 7.5 g/dL Albumin 3.3 g/dL Albumin/Globulin Ratio 0.8 Current Medications Medications (Trade) Dose Ordered Sig/Afshin Route PRN Reason Start Time Stop Time Status Last Admin Dose Admin Acetaminophen (Tylenol) 650 mg PRN Q6HRS PRN PO MILD PAIN / TEMP > 100.3'F 04/14/20 15:00 Multi-Ingredient Ointment (Analgesic [place]) 1 aaron PRN QID PRN TP MUSCLE PAIN 04/14/20 15:00 Al Hydroxide/Mg Hydroxide (Mylanta Plus Xs) 15 ml PRN AFTMEALHC PRN PO DYSPEPSIA 04/14/20 15:00 Magnesium Hydroxide (Milk Of Magnesia) 2,400 mg PRN QHS PRN PO CONSTIPATION 1/21/21 15:00 Allopurinol (Zyloprim) 100 mg HS PO 04/14/20 21:00 04/24/20 20:26 Amlodipine Besylate (Norvasc) 10 mg DAILY PO 04/15/20 09:00 04/19/20 18:30 DC 04/19/20 10:18 Aripiprazole (Abilify) 2 mg DAILY PO 04/15/20 09:00 04/16/20 17:08 DC 04/16/20 10:00 Aspirin (Aspirin Chewable) 81 mg DAILYWBKFT PO 04/15/20 08:00 04/24/20 07:59 Azelastine HCl (Astelin) 2 spray BID NS 04/14/20 21:00 04/24/20 20:27 Bupropion HCl (Wellbutrin Xl) 150 mg DAILY PO 04/15/20 09:00 04/24/20 08:00 Chlorthalidone (Thalitone) 25 mg DAILY PO 04/15/20 09:00 04/19/20 18:30 DC 04/19/20 10:18 Clopidogrel Bisulfate (Plavix) 75 mg QHS PO 04/14/20 21:00 04/24/20 20:26 Coenzyme Q10 (Coenzyme Q10) 50 mg DAILY PO 04/15/20 09:00 04/24/20 07:58 Finasteride (Proscar) 5 mg DAILY PO 04/15/20 09:00 04/24/20 08:00 Levothyroxine Sodium (Synthroid) 100 mcg DAILY06 PO 04/15/20 06:00 04/24/20 05:32 Losartan Potassium (Cozaar) 50 mg DAILY PO 04/15/20 09:00 04/19/20 14:20 DC 04/19/20 10:19 Metoprolol Succinate (Toprol Xl) 100 mg DAILY PO 04/15/20 09:00 04/24/20 07:59 Fish Oil (Fish Oil) 1,000 mg DAILY PO 04/15/20 09:00 04/23/20 07:57 Quetiapine Fumarate (SEROquel) 50 mg QHS PO 04/14/20 21:00 04/14/20 16:15 DC Vitamin D (Vitamin D3) 50,000 unit WEEKLY PO 04/21/20 09:00 04/21/20 09:00 Colchicine (Colcrys) 0.6 mg PRN DAILY PRN PO for GOUT pain 04/14/20 15:30 Diclofenac Sodium (Voltaren) 1 aaron PRN QID PRN TP PAIN 04/14/20 15:30 Nitroglycerin (Nitrostat) 0.4 mg PRN Q5MIN PRN SL CHEST PAIN 04/14/20 15:30 Melatonin (Melatonin) 3 mg PRN QHS PRN PO INSOMNIA 04/14/20 15:30 04/24/20 21:42 Clonazepam (KlonoPIN) 0.25 mg BID PO 04/14/20 21:00 04/15/20 15:46 DC 04/15/20 09:12 Clonazepam (KlonoPIN) 0.25 mg QHS PO 04/15/20 21:00 04/17/20 23:01 DC 04/17/20 21:10 Sertraline HCl (Zoloft) 50 mg DAILY PO 04/16/20 09:00 04/20/20 23:59 DC 04/20/20 08:19 Olanzapine (ZyPREXA ZYDIS) 2.5 mg PRN Q2HR PRN PO PSYCHOSIS 04/16/20 13:15 04/20/20 11:33 Quetiapine Fumarate (SEROquel) 12.5 mg TID@0900,1300,1700 PO 04/17/20 09:00 04/20/20 17:08 DC 04/20/20 11:33 Sertraline HCl (Zoloft) 75 mg DAILY PO 04/18/20 09:00 04/18/20 07:37 DC Sertraline HCl (Zoloft) 75 mg DAILY PO 04/18/20 09:00 04/18/20 08:23 DC Sertraline HCl (Zoloft) 75 mg DAILY PO 04/21/20 09:00 04/23/20 09:00 DC 04/23/20 07:57 Quetiapine Fumarate (SEROquel) 12.5 mg 1300,1700 PO 04/20/20 17:15 04/24/20 17:08 Quetiapine Fumarate (SEROquel) 25 mg DAILY PO 04/21/20 09:00 04/24/20 08:00 Sertraline HCl (Zoloft) 100 mg DAILY PO 04/24/20 09:00 04/24/20 07:59 Current Medications Medications (Trade) Dose Ordered Sig/Afshin Route PRN Reason Start Time Stop Time Status Last Admin Dose Admin Sertraline HCl (Zoloft) 100 mg DAILY PO 04/24/20 09:00 04/24/20 07:59 I have reviewed the current psychotropics carefully including drug interactions. Risk benefit ratio favors no change other than as noted in my dictated progress note. 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
--- NOTE | 2020-04-24 21:45 | PDOC ---
Exam Note: Miguel Note: Please also refer to the separate dictated note~for this date of service dictated separately.~Patient seen individually. Discussed the patient with Nursing staff reviewed the chart.~Reviewed interim history and current functioning. Reviewed vital signs,~Labs/ Radiology~and current medications noted below. Continue current treatment with the changes noted in the dictated addendum note Assessment: Vital Signs/I&O: Vital Signs Date Time Temp Pulse Resp B/P (MAP) Pulse Ox O2 Delivery O2 Flow Rate FiO2 04/24/20 16:44 97.8 87 20 135/83 (100) 100 04/24/20 06:40 Room Air I & O 04/23/20 04/23/20 04/24/20 15:00 23:00 07:00 Intake Total 360 ml 340 ml Balance 360 ml 340 ml Labs: Laboratory Tests Test 04/24/20 07:55 04/24/20 13:40 Glucose (Fingerstick) 83 mg/dL (70-99) White Blood Count 6.5 x10^3/uL (4.0-11.0) Red Blood Count 3.36 x10^6/uL (4.30-5.70) L Hemoglobin 11.4 g/dL (13.0-17.5) L Hematocrit 34.3 % (39.0-53.0) L Mean Corpuscular Volume 102 fL (79-100) H Mean Corpuscular Hemoglobin 34 pg (25-35) Mean Corpuscular Hemoglobin Concent 33 g/dL (31-37) Red Cell Distribution Width 14.0 % (11.5-14.5) Platelet Count 222 x10^3/uL (140-400) Neutrophils (%) (Auto) 75 % (31-73) H Lymphocytes (%) (Auto) 16 % (24-48) L Monocytes (%) (Auto) 6 % (0-9) Eosinophils (%) (Auto) 2 % (0-3) Basophils (%) (Auto) 1 % (0-3) Neutrophils # (Auto) 4.9 x10^3uL (1.8-7.7) Lymphocytes # (Auto) 1.0 x10^3/uL (1.0-4.8) Monocytes # (Auto) 0.4 x10^3/uL (0.0-1.1) Eosinophils # (Auto) 0.1 x10^3/uL (0.0-0.7) Basophils # (Auto) 0.0 x10^3/uL (0.0-0.2) Sodium Level 138 mmol/L (136-145) Potassium Level 4.1 mmol/L (3.5-5.1) Chloride Level 104 mmol/L (98-107) Carbon Dioxide Level 30 mmol/L (21-32) Anion Gap 4 (6-14) L Blood Urea Nitrogen 36 mg/dL (8-26) H Creatinine 1.9 mg/dL (0.7-1.3) H Estimated GFR (Cockcroft-Gault) 34.1 BUN/Creatinine Ratio 19 (6-20) Glucose Level 214 mg/dL (70-99) H Calcium Level 8.5 mg/dL (8.5-10.1) Total Bilirubin 0.3 mg/dL (0.2-1.0) Aspartate Amino Transferase (AST) 35 U/L (15-37) Alanine Aminotransferase (ALT) 52 U/L (16-63) Alkaline Phosphatase 86 U/L (46-116) Total Protein 7.5 g/dL (6.4-8.2) Albumin 3.3 g/dL (3.4-5.0) L Albumin/Globulin Ratio 0.8 (1.0-1.7) L Current Medications: Meds: Laboratory Tests Test 04/24/20 07:55 04/24/20 13:40 Glucose (Fingerstick) 83 mg/dL White Blood Count 6.5 x10^3/uL Red Blood Count 3.36 x10^6/uL Hemoglobin 11.4 g/dL Hematocrit 34.3 % Mean Corpuscular Volume 102 fL Mean Corpuscular Hemoglobin 34 pg Mean Corpuscular Hemoglobin Concent 33 g/dL Red Cell Distribution Width 14.0 % Platelet Count 222 x10^3/uL Neutrophils (%) (Auto) 75 % Lymphocytes (%) (Auto) 16 % Monocytes (%) (Auto) 6 % Eosinophils (%) (Auto) 2 % Basophils (%) (Auto) 1 % Neutrophils # (Auto) 4.9 x10^3uL Lymphocytes # (Auto) 1.0 x10^3/uL Monocytes # (Auto) 0.4 x10^3/uL Eosinophils # (Auto) 0.1 x10^3/uL Basophils # (Auto) 0.0 x10^3/uL Sodium Level 138 mmol/L Potassium Level 4.1 mmol/L Chloride Level 104 mmol/L Carbon Dioxide Level 30 mmol/L Anion Gap 4 Blood Urea Nitrogen 36 mg/dL Creatinine 1.9 mg/dL Estimated GFR (Cockcroft-Gault) 34.1 BUN/Creatinine Ratio 19 Glucose Level 214 mg/dL Calcium Level 8.5 mg/dL Total Bilirubin 0.3 mg/dL Aspartate Amino Transf (AST/SGOT) 35 U/L Alanine Aminotransferase (ALT/SGPT) 52 U/L Alkaline Phosphatase 86 U/L Total Protein 7.5 g/dL Albumin 3.3 g/dL Albumin/Globulin Ratio 0.8 Current Medications Medications (Trade) Dose Ordered Sig/Afshin Route PRN Reason Start Time Stop Time Status Last Admin Dose Admin Acetaminophen (Tylenol) 650 mg PRN Q6HRS PRN PO MILD PAIN / TEMP > 100.3'F 04/14/20 15:00 Multi-Ingredient Ointment (Analgesic [place]) 1 aaron PRN QID PRN TP MUSCLE PAIN 04/14/20 15:00 Al Hydroxide/Mg Hydroxide (Mylanta Plus Xs) 15 ml PRN AFTMEALHC PRN PO DYSPEPSIA 04/14/20 15:00 Magnesium Hydroxide (Milk Of Magnesia) 2,400 mg PRN QHS PRN PO CONSTIPATION 04/14/20 15:00 Allopurinol (Zyloprim) 100 mg HS PO 04/14/20 21:00 04/24/20 20:26 Amlodipine Besylate (Norvasc) 10 mg DAILY PO 04/15/20 09:00 04/19/20 18:30 DC 04/19/20 10:18 Aripiprazole (Abilify) 2 mg DAILY PO 04/15/20 09:00 04/16/20 17:08 DC 04/16/20 10:00 Aspirin (Aspirin Chewable) 81 mg DAILYWBKFT PO 04/15/20 08:00 04/24/20 07:59 Azelastine HCl (Astelin) 2 spray BID NS 04/14/20 21:00 04/24/20 20:27 Bupropion HCl (Wellbutrin Xl) 150 mg DAILY PO 04/15/20 09:00 04/24/20 08:00 Chlorthalidone (Thalitone) 25 mg DAILY PO 04/15/20 09:00 04/19/20 18:30 DC 04/19/20 10:18 Clopidogrel Bisulfate (Plavix) 75 mg QHS PO 04/14/20 21:00 04/24/20 20:26 Coenzyme Q10 (Coenzyme Q10) 50 mg DAILY PO 04/15/20 09:00 04/24/20 07:58 Finasteride (Proscar) 5 mg DAILY PO 04/15/20 09:00 04/24/20 08:00 Levothyroxine Sodium (Synthroid) 100 mcg DAILY06 PO 04/15/20 06:00 04/24/20 05:32 Losartan Potassium (Cozaar) 50 mg DAILY PO 04/15/20 09:00 04/19/20 14:20 DC 04/19/20 10:19 Metoprolol Succinate (Toprol Xl) 100 mg DAILY PO 04/15/20 09:00 04/24/20 07:59 Fish Oil (Fish Oil) 1,000 mg DAILY PO 04/15/20 09:00 04/23/20 07:57 Quetiapine Fumarate (SEROquel) 50 mg QHS PO 04/14/20 21:00 04/14/20 16:15 DC Vitamin D (Vitamin D3) 50,000 unit WEEKLY PO 04/21/20 09:00 04/21/20 09:00 Colchicine (Colcrys) 0.6 mg PRN DAILY PRN PO for GOUT pain 04/14/20 15:30 Diclofenac Sodium (Voltaren) 1 aaron PRN QID PRN TP PAIN 04/14/20 15:30 Nitroglycerin (Nitrostat) 0.4 mg PRN Q5MIN PRN SL CHEST PAIN 04/14/20 15:30 Melatonin (Melatonin) 3 mg PRN QHS PRN PO INSOMNIA 04/14/20 15:30 04/24/20 21:42 Clonazepam (KlonoPIN) 0.25 mg BID PO 04/14/20 21:00 04/15/20 15:46 DC 04/15/20 09:12 Clonazepam (KlonoPIN) 0.25 mg QHS PO 04/15/20 21:00 04/17/20 23:01 DC 04/17/20 21:10 Sertraline HCl (Zoloft) 50 mg DAILY PO 04/16/20 09:00 04/20/20 23:59 DC 04/20/20 08:19 Olanzapine (ZyPREXA ZYDIS) 2.5 mg PRN Q2HR PRN PO PSYCHOSIS 04/16/20 13:15 04/20/20 11:33 Quetiapine Fumarate (SEROquel) 12.5 mg TID@0900,1300,1700 PO 04/17/20 09:00 04/20/20 17:08 DC 04/20/20 11:33 Sertraline HCl (Zoloft) 75 mg DAILY PO 04/18/20 09:00 04/18/20 07:37 DC Sertraline HCl (Zoloft) 75 mg DAILY PO 04/18/20 09:00 04/18/20 08:23 DC Sertraline HCl (Zoloft) 75 mg DAILY PO 04/21/20 09:00 04/23/20 09:00 DC 04/23/20 07:57 Quetiapine Fumarate (SEROquel) 12.5 mg 1300,1700 PO 04/20/20 17:15 04/24/20 17:08 Quetiapine Fumarate (SEROquel) 25 mg DAILY PO 04/21/20 09:00 04/24/20 08:00 Sertraline HCl (Zoloft) 100 mg DAILY PO 04/24/20 09:00 04/24/20 07:59 Current Medications Medications (Trade) Dose Ordered Sig/Afshin Route PRN Reason Start Time Stop Time Status Last Admin Dose Admin Sertraline HCl (Zoloft) 100 mg DAILY PO 04/24/20 09:00 04/24/20 07:59 I have reviewed the current psychotropics carefully including drug interactions. Risk benefit ratio favors no change other than as noted in my dictated progress note. 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
[2020-04-25] MEDS: LEVOTHYROXINE 100 MCG TABLET PO SCH (05:40)
[2020-04-25 06:26] VITALS: BP 137/70
--- NOTE | 2020-04-25 08:26 | PDOC ---
Exam Note: Miguel Note: This note is a late entry for 04/24/2020 covers elements not covered in my initial note. Subjective: The patient was seen face to face in the evening of 04/24/2020 with Kendra BAY. Discussed with nursing staff, reviewed the chart. He slept 6-3/4 hours previous night. 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 He followed me around the unit on rounds after I met with him. Review of Systems: No CV, , pulmonary, eye, ENT system symptoms on review. Reliability poor. Mental Status Exam: The patient is oriented to himself. Insight and judgment, recent and remote memory, attention and concentration, fund of knowledge is poor consistent with his diagnosis. Laboratory Data: Reviewed. Impression: Major neurocognitive disorder Alzheimer vascular with delusion, depression, behavioral disturbance. Anxiety disorder unspecified. Impulse control disorder unspecified. Plan: No change from initial note. Assessment: Vital Signs/I&O: Vital Signs Date Time Temp Pulse Resp B/P (MAP) Pulse Ox O2 Delivery O2 Flow Rate FiO2 04/25/20 06:26 97.6 63 14 137/70 (92) 97 Room Air I & O 04/24/20 04/24/20 04/25/20 15:00 23:00 07:00 Intake Total 440 ml 480 ml Balance 440 ml 480 ml Labs: Laboratory Tests Test 04/24/20 13:40 04/25/20 07:54 White Blood Count 6.5 x10^3/uL (4.0-11.0) Red Blood Count 3.36 x10^6/uL (4.30-5.70) L Hemoglobin 11.4 g/dL (13.0-17.5) L Hematocrit 34.3 % (39.0-53.0) L Mean Corpuscular Volume 102 fL (79-100) H Mean Corpuscular Hemoglobin 34 pg (25-35) Mean Corpuscular Hemoglobin Concent 33 g/dL (31-37) Red Cell Distribution Width 14.0 % (11.5-14.5) Platelet Count 222 x10^3/uL (140-400) Neutrophils (%) (Auto) 75 % (31-73) H Lymphocytes (%) (Auto) 16 % (24-48) L Monocytes (%) (Auto) 6 % (0-9) Eosinophils (%) (Auto) 2 % (0-3) Basophils (%) (Auto) 1 % (0-3) Neutrophils # (Auto) 4.9 x10^3uL (1.8-7.7) Lymphocytes # (Auto) 1.0 x10^3/uL (1.0-4.8) Monocytes # (Auto) 0.4 x10^3/uL (0.0-1.1) Eosinophils # (Auto) 0.1 x10^3/uL (0.0-0.7) Basophils # (Auto) 0.0 x10^3/uL (0.0-0.2) Sodium Level 138 mmol/L (136-145) Potassium Level 4.1 mmol/L (3.5-5.1) Chloride Level 104 mmol/L (98-107) Carbon Dioxide Level 30 mmol/L (21-32) Anion Gap 4 (6-14) L Blood Urea Nitrogen 36 mg/dL (8-26) H Creatinine 1.9 mg/dL (0.7-1.3) H Estimated GFR (Cockcroft-Gault) 34.1 BUN/Creatinine Ratio 19 (6-20) Glucose Level 214 mg/dL (70-99) H Calcium Level 8.5 mg/dL (8.5-10.1) Total Bilirubin 0.3 mg/dL (0.2-1.0) Aspartate Amino Transferase (AST) 35 U/L (15-37) Alanine Aminotransferase (ALT) 52 U/L (16-63) Alkaline Phosphatase 86 U/L (46-116) Total Protein 7.5 g/dL (6.4-8.2) Albumin 3.3 g/dL (3.4-5.0) L Albumin/Globulin Ratio 0.8 (1.0-1.7) L Glucose (Fingerstick) 85 mg/dL (70-99) Current Medications: Meds: Laboratory Tests Test 04/24/20 13:40 04/25/20 07:54 White Blood Count 6.5 x10^3/uL Red Blood Count 3.36 x10^6/uL Hemoglobin 11.4 g/dL Hematocrit 34.3 % Mean Corpuscular Volume 102 fL Mean Corpuscular Hemoglobin 34 pg Mean Corpuscular Hemoglobin Concent 33 g/dL Red Cell Distribution Width 14.0 % Platelet Count 222 x10^3/uL Neutrophils (%) (Auto) 75 % Lymphocytes (%) (Auto) 16 % Monocytes (%) (Auto) 6 % Eosinophils (%) (Auto) 2 % Basophils (%) (Auto) 1 % Neutrophils # (Auto) 4.9 x10^3uL Lymphocytes # (Auto) 1.0 x10^3/uL Monocytes # (Auto) 0.4 x10^3/uL Eosinophils # (Auto) 0.1 x10^3/uL Basophils # (Auto) 0.0 x10^3/uL Sodium Level 138 mmol/L Potassium Level 4.1 mmol/L Chloride Level 104 mmol/L Carbon Dioxide Level 30 mmol/L Anion Gap 4 Blood Urea Nitrogen 36 mg/dL Creatinine 1.9 mg/dL Estimated GFR (Cockcroft-Gault) 34.1 BUN/Creatinine Ratio 19 Glucose Level 214 mg/dL Calcium Level 8.5 mg/dL Total Bilirubin 0.3 mg/dL Aspartate Amino Transf (AST/SGOT) 35 U/L Alanine Aminotransferase (ALT/SGPT) 52 U/L Alkaline Phosphatase 86 U/L Total Protein 7.5 g/dL Albumin 3.3 g/dL Albumin/Globulin Ratio 0.8 Glucose (Fingerstick) 85 mg/dL Current Medications Medications (Trade) Dose Ordered Sig/Afshin Route PRN Reason Start Time Stop Time Status Last Admin Dose Admin Acetaminophen (Tylenol) 650 mg PRN Q6HRS PRN PO MILD PAIN / TEMP > 100.3'F 04/14/20 15:00 Multi-Ingredient Ointment (Analgesic [place]) 1 aaron PRN QID PRN TP MUSCLE PAIN 04/14/20 15:00 Al Hydroxide/Mg Hydroxide (Mylanta Plus Xs) 15 ml PRN AFTMEALHC PRN PO DYSPEPSIA 04/14/20 15:00 Magnesium Hydroxide (Milk Of Magnesia) 2,400 mg PRN QHS PRN PO CONSTIPATION 04/14/20 15:00 Allopurinol (Zyloprim) 100 mg HS PO 04/14/20 21:00 04/24/20 20:26 Amlodipine Besylate (Norvasc) 10 mg DAILY PO 04/15/20 09:00 04/19/20 18:30 DC 1/26/21 10:18 Aripiprazole (Abilify) 2 mg DAILY PO 04/15/20 09:00 04/16/20 17:08 DC 04/16/20 10:00 Aspirin (Aspirin Chewable) 81 mg DAILYWBKFT PO 04/15/20 08:00 04/24/20 07:59 Azelastine HCl (Astelin) 2 spray BID NS 04/14/20 21:00 04/24/20 20:27 Bupropion HCl (Wellbutrin Xl) 150 mg DAILY PO 04/15/20 09:00 04/24/20 08:00 Chlorthalidone (Thalitone) 25 mg DAILY PO 04/15/20 09:00 04/19/20 18:30 DC 04/19/20 10:18 Clopidogrel Bisulfate (Plavix) 75 mg QHS PO 04/14/20 21:00 04/24/20 20:26 Coenzyme Q10 (Coenzyme Q10) 50 mg DAILY PO 04/15/20 09:00 04/24/20 07:58 Finasteride (Proscar) 5 mg DAILY PO 04/15/20 09:00 04/24/20 08:00 Levothyroxine Sodium (Synthroid) 100 mcg DAILY06 PO 04/15/20 06:00 04/25/20 05:40 Losartan Potassium (Cozaar) 50 mg DAILY PO 04/15/20 09:00 04/19/20 14:20 DC 04/19/20 10:19 Metoprolol Succinate (Toprol Xl) 100 mg DAILY PO 04/15/20 09:00 04/24/20 07:59 Fish Oil (Fish Oil) 1,000 mg DAILY PO 04/15/20 09:00 04/23/20 07:57 Quetiapine Fumarate (SEROquel) 50 mg QHS PO 04/14/20 21:00 04/14/20 16:15 DC Vitamin D (Vitamin D3) 50,000 unit WEEKLY PO 04/21/20 09:00 04/21/20 09:00 Colchicine (Colcrys) 0.6 mg PRN DAILY PRN PO for GOUT pain 04/14/20 15:30 Diclofenac Sodium (Voltaren) 1 aaron PRN QID PRN TP PAIN 04/14/20 15:30 Nitroglycerin (Nitrostat) 0.4 mg PRN Q5MIN PRN SL CHEST PAIN 04/14/20 15:30 Melatonin (Melatonin) 3 mg PRN QHS PRN PO INSOMNIA 04/14/20 15:30 04/24/20 21:42 Clonazepam (KlonoPIN) 0.25 mg BID PO 04/14/20 21:00 04/15/20 15:46 DC 04/15/20 09:12 Clonazepam (KlonoPIN) 0.25 mg QHS PO 04/15/20 21:00 04/17/20 23:01 DC 04/17/20 21:10 Sertraline HCl (Zoloft) 50 mg DAILY PO 04/16/20 09:00 04/20/20 23:59 DC 04/20/20 08:19 Olanzapine (ZyPREXA ZYDIS) 2.5 mg PRN Q2HR PRN PO PSYCHOSIS 04/16/20 13:15 04/20/20 11:33 Quetiapine Fumarate (SEROquel) 12.5 mg TID@0900,1300,1700 PO 04/17/20 09:00 04/20/20 17:08 DC 04/20/20 11:33 Sertraline HCl (Zoloft) 75 mg DAILY PO 04/18/20 09:00 04/18/20 07:37 DC Sertraline HCl (Zoloft) 75 mg DAILY PO 04/18/20 09:00 04/18/20 08:23 DC Sertraline HCl (Zoloft) 75 mg DAILY PO 04/21/20 09:00 04/23/20 09:00 DC 04/23/20 07:57 Quetiapine Fumarate (SEROquel) 12.5 mg 1300,1700 PO 04/20/20 17:15 04/24/20 17:08 Quetiapine Fumarate (SEROquel) 25 mg DAILY PO 04/21/20 09:00 04/24/20 08:00 Sertraline HCl (Zoloft) 100 mg DAILY PO 04/24/20 09:00 04/24/20 07:59 Current Medications Medications (Trade) Dose Ordered Sig/Afshin Route PRN Reason Start Time Stop Time Status Last Admin Dose Admin Sertraline HCl (Zoloft) 100 mg DAILY PO 04/24/20 09:00 04/24/20 07:59 I have reviewed the current psychotropics carefully including drug interactions. Risk benefit ratio favors no change other than as noted in my dictated progress note. Diagnosis: Problems: (1) Major neurocognitive disorder (2) Impulse control disorder, unspecified (3) Anxiety disorder, unspecified (4) Dementia, vascular, with depression (5) Dementia, vascular, with delusions (6) Dementia in Alzheimer's disease with depression (7) Dementia in Alzheimer's disease with delusions (8) Dementia of the Alzheimer's type with early onset with behavioral disturbance RENITA SAAGSTUME MD Apr 25, 2020 08:26
[2020-04-25] MEDS: OMEGA-3 FATTY ACIDS/FISH OIL 1,000 MG CAPSULE. PO SCH (09:00)
[2020-04-25] MEDS: AZELASTINE NASAL SPRAY 30ML BOTTLE. NS SCH ×2 (09:00→21:00)
[2020-04-25] MEDS: UBIDECARENONE 50 MG CAPSULE. PO SCH (09:07)
[2020-04-25] MEDS: ASPIRIN CHEWABLE 81 MG TABLET. PO SCH (09:07)
[2020-04-25] MEDS: QUEtiapine 25 MG TABLET. PO SCH ×3 (09:07→16:56)
[2020-04-25] MEDS: FINASTERIDE 5 MG TABLET. PO SCH (09:07)
[2020-04-25] MEDS: SERTRALINE 100 MG TABLET. PO SCH (09:08)
[2020-04-25] MEDS: METOPROLOL SUCC 24HR ER 50 MG TAB.ER.24H. PO SCH (09:08)
[2020-04-25] MEDS: buPROPion XL 150 MG TAB.ER.24H PO SCH (09:08)
[2020-04-25] MEDS: CLOPIDOGREL BISULFATE 75 MG TABLET PO SCH (19:49)
[2020-04-25] MEDS: MELATONIN 3 MG TABLET PO PRN (19:49)
[2020-04-25] MEDS: ALLOPURINOL 100 MG TABLET. PO SCH (19:49)
--- NOTE | 2020-04-25 21:09 | PDOC ---
Exam Note: Miguel Note: Please also refer to the separate dictated note~for this date of service dictated separately.~Patient seen individually. Discussed the patient with Nursing staff reviewed the chart.~Reviewed interim history and current functioning. Reviewed vital signs,~Labs/ Radiology~and current medications noted below. Continue current treatment with the changes noted in the dictated addendum note Assessment: Vital Signs/I&O: Vital Signs Date Time Temp Pulse Resp B/P (MAP) Pulse Ox O2 Delivery O2 Flow Rate FiO2 04/25/20 09:08 63 137/70 04/25/20 06:26 97.6 14 97 Room Air I & O 04/24/20 04/24/20 04/25/20 14:59 22:59 06:59 Intake Total 440 ml 480 ml Balance 440 ml 480 ml Labs: Laboratory Tests Test 04/25/20 07:54 Glucose (Fingerstick) 85 mg/dL (70-99) Current Medications: Meds: Laboratory Tests Test 04/25/20 07:54 Glucose (Fingerstick) 85 mg/dL Current Medications Medications (Trade) Dose Ordered Sig/Afshin Route PRN Reason Start Time Stop Time Status Last Admin Dose Admin Acetaminophen (Tylenol) 650 mg PRN Q6HRS PRN PO MILD PAIN / TEMP > 100.3'F 04/14/20 15:00 Multi-Ingredient Ointment (Analgesic [place]) 1 aaron PRN QID PRN TP MUSCLE PAIN 04/14/20 15:00 Al Hydroxide/Mg Hydroxide (Mylanta Plus Xs) 15 ml PRN AFTMEALHC PRN PO DYSPEPSIA 04/14/20 15:00 Magnesium Hydroxide (Milk Of Magnesia) 2,400 mg PRN QHS PRN PO CONSTIPATION 04/14/20 15:00 Allopurinol (Zyloprim) 100 mg HS PO 04/14/20 21:00 04/25/20 19:49 Amlodipine Besylate (Norvasc) 10 mg DAILY PO 04/15/20 09:00 04/19/20 18:30 DC 04/19/20 10:18 Aripiprazole (Abilify) 2 mg DAILY PO 04/15/20 09:00 04/16/20 17:08 DC 04/16/20 10:00 Aspirin (Aspirin Chewable) 81 mg DAILYWBKFT PO 04/15/20 08:00 04/25/20 09:07 Azelastine HCl (Astelin) 2 spray BID NS 04/14/20 21:00 04/24/20 20:27 Bupropion HCl (Wellbutrin Xl) 150 mg DAILY PO 04/15/20 09:00 04/25/20 09:08 Chlorthalidone (Thalitone) 25 mg DAILY PO 04/15/20 09:00 04/19/20 18:30 DC 04/19/20 10:18 Clopidogrel Bisulfate (Plavix) 75 mg QHS PO 04/14/20 21:00 04/25/20 19:49 Coenzyme Q10 (Coenzyme Q10) 50 mg DAILY PO 04/15/20 09:00 04/25/20 09:07 Finasteride (Proscar) 5 mg DAILY PO 04/15/20 09:00 04/25/20 09:07 Levothyroxine Sodium (Synthroid) 100 mcg DAILY06 PO 04/15/20 06:00 04/25/20 05:40 Losartan Potassium (Cozaar) 50 mg DAILY PO 04/15/20 09:00 04/19/20 14:20 DC 04/19/20 10:19 Metoprolol Succinate (Toprol Xl) 100 mg DAILY PO 04/15/20 09:00 04/25/20 09:08 Fish Oil (Fish Oil) 1,000 mg DAILY PO 04/15/20 09:00 04/25/20 16:19 DC 04/23/20 07:57 Quetiapine Fumarate (SEROquel) 50 mg QHS PO 04/14/20 21:00 04/14/20 16:15 DC Vitamin D (Vitamin D3) 50,000 unit WEEKLY PO 04/21/20 09:00 04/21/20 09:00 Colchicine (Colcrys) 0.6 mg PRN DAILY PRN PO for GOUT pain 04/14/20 15:30 Diclofenac Sodium (Voltaren) 1 aaron PRN QID PRN TP PAIN 04/14/20 15:30 Nitroglycerin (Nitrostat) 0.4 mg PRN Q5MIN PRN SL CHEST PAIN 04/14/20 15:30 Melatonin (Melatonin) 3 mg PRN QHS PRN PO INSOMNIA 04/14/20 15:30 04/25/20 19:49 Clonazepam (KlonoPIN) 0.25 mg BID PO 04/14/20 21:00 04/15/20 15:46 DC 04/15/20 09:12 Clonazepam (KlonoPIN) 0.25 mg QHS PO 04/15/20 21:00 04/17/20 23:01 DC 04/17/20 21:10 Sertraline HCl (Zoloft) 50 mg DAILY PO 04/16/20 09:00 04/20/20 23:59 DC 04/20/20 08:19 Olanzapine (ZyPREXA ZYDIS) 2.5 mg PRN Q2HR PRN PO PSYCHOSIS 04/16/20 13:15 04/25/20 15:26 Quetiapine Fumarate (SEROquel) 12.5 mg TID@0900,1300,1700 PO 04/17/20 09:00 04/20/20 17:08 DC 04/20/20 11:33 Sertraline HCl (Zoloft) 75 mg DAILY PO 04/18/20 09:00 04/18/20 07:37 DC Sertraline HCl (Zoloft) 75 mg DAILY PO 04/18/20 09:00 04/18/20 08:23 DC Sertraline HCl (Zoloft) 75 mg DAILY PO 04/21/20 09:00 04/23/20 09:00 DC 04/23/20 07:57 Quetiapine Fumarate (SEROquel) 12.5 mg 1300,1700 PO 04/20/20 17:15 04/25/20 16:56 Quetiapine Fumarate (SEROquel) 25 mg DAILY PO 04/21/20 09:00 04/25/20 09:07 Sertraline HCl (Zoloft) 100 mg DAILY PO 04/24/20 09:00 04/25/20 09:08 I have reviewed the current psychotropics carefully including drug interactions. Risk benefit ratio favors no change other than as noted in my dictated progress note. Diagnosis: Problems: (1) Major neurocognitive disorder (2) Impulse control disorder, unspecified (3) Anxiety disorder, unspecified (4) Dementia, vascular, with depression (5) Dementia, vascular, with delusions (6) Dementia in Alzheimer's disease with depression (7) Dementia in Alzheimer's disease with delusions (8) Dementia of the Alzheimer's type with early onset with behavioral disturbance RENITA SAGASTUME MD Apr 25, 2020 21:08
[2020-04-26] MEDS: LEVOTHYROXINE 100 MCG TABLET PO SCH (05:36)
[2020-04-26 06:49] VITALS: BP 164/90
[2020-04-26] MEDS: UBIDECARENONE 50 MG CAPSULE. PO SCH (08:07)
[2020-04-26] MEDS: ASPIRIN CHEWABLE 81 MG TABLET. PO SCH (08:07)
[2020-04-26] MEDS: buPROPion XL 150 MG TAB.ER.24H PO SCH (08:07)
[2020-04-26] MEDS: METOPROLOL SUCC 24HR ER 50 MG TAB.ER.24H. PO SCH (08:08)
[2020-04-26] MEDS: FINASTERIDE 5 MG TABLET. PO SCH (08:08)
[2020-04-26] MEDS: SERTRALINE 100 MG TABLET. PO SCH (08:08)
[2020-04-26] MEDS: QUEtiapine 25 MG TABLET. PO SCH ×3 (08:08→16:54)
[2020-04-26] MEDS: AZELASTINE NASAL SPRAY 30ML BOTTLE. NS SCH ×2 (08:08→20:07)
[2020-04-26 15:24] VITALS: BP 128/79
[2020-04-26] MEDS: ALLOPURINOL 100 MG TABLET. PO SCH (20:05)
[2020-04-26] MEDS: CLOPIDOGREL BISULFATE 75 MG TABLET PO SCH (20:05)
--- NOTE | 2020-04-26 21:06 | PDOC ---
Exam Note: Miguel Note: Please also refer to the separate dictated note~for this date of service dictated separately.~Patient seen individually. Discussed the patient with Nursing staff reviewed the chart.~Reviewed interim history and current functioning. Reviewed vital signs,~Labs/ Radiology~and current medications noted below. Continue current treatment with the changes noted in the dictated addendum note Assessment: Vital Signs/I&O: Vital Signs Date Time Temp Pulse Resp B/P (MAP) Pulse Ox O2 Delivery O2 Flow Rate FiO2 04/26/20 15:24 95.8 68 16 128/79 (95) 94 04/26/20 06:49 Room Air I & O 04/25/20 04/25/20 04/26/20 15:00 23:00 07:00 Intake Total 360 ml 120 ml Balance 360 ml 120 ml Labs: Laboratory Tests Test 04/26/20 07:54 Glucose (Fingerstick) 85 mg/dL (70-99) Current Medications: Meds: Laboratory Tests Test 04/26/20 07:54 Glucose (Fingerstick) 85 mg/dL Current Medications Medications (Trade) Dose Ordered Sig/Afshin Route PRN Reason Start Time Stop Time Status Last Admin Dose Admin Acetaminophen (Tylenol) 650 mg PRN Q6HRS PRN PO MILD PAIN / TEMP > 100.3'F 04/14/20 15:00 Multi-Ingredient Ointment (Analgesic [place]) 1 aaron PRN QID PRN TP MUSCLE PAIN 04/14/20 15:00 Al Hydroxide/Mg Hydroxide (Mylanta Plus Xs) 15 ml PRN AFTMEALHC PRN PO DYSPEPSIA 04/14/20 15:00 Magnesium Hydroxide (Milk Of Magnesia) 2,400 mg PRN QHS PRN PO CONSTIPATION 04/14/20 15:00 Allopurinol (Zyloprim) 100 mg HS PO 04/14/20 21:00 04/26/20 20:05 Amlodipine Besylate (Norvasc) 10 mg DAILY PO 04/15/20 09:00 04/19/20 18:30 DC 04/19/20 10:18 Aripiprazole (Abilify) 2 mg DAILY PO 04/15/20 09:00 04/16/20 17:08 DC 04/16/20 10:00 Aspirin (Aspirin Chewable) 81 mg DAILYWBKFT PO 04/15/20 08:00 04/26/20 08:07 Azelastine HCl (Astelin) 2 spray BID NS 04/14/20 21:00 04/26/20 20:07 Bupropion HCl (Wellbutrin Xl) 150 mg DAILY PO 04/15/20 09:00 04/26/20 08:07 Chlorthalidone (Thalitone) 25 mg DAILY PO 04/15/20 09:00 04/19/20 18:30 DC 04/19/20 10:18 Clopidogrel Bisulfate (Plavix) 75 mg QHS PO 04/14/20 21:00 04/26/20 20:05 Coenzyme Q10 (Coenzyme Q10) 50 mg DAILY PO 04/15/20 09:00 04/26/20 08:07 Finasteride (Proscar) 5 mg DAILY PO 04/15/20 09:00 04/26/20 08:08 Levothyroxine Sodium (Synthroid) 100 mcg DAILY06 PO 04/15/20 06:00 04/26/20 05:36 Losartan Potassium (Cozaar) 50 mg DAILY PO 04/15/20 09:00 04/19/20 14:20 DC 04/19/20 10:19 Metoprolol Succinate (Toprol Xl) 100 mg DAILY PO 04/15/20 09:00 04/26/20 08:08 Fish Oil (Fish Oil) 1,000 mg DAILY PO 04/15/20 09:00 04/25/20 16:19 DC 04/23/20 07:57 Quetiapine Fumarate (SEROquel) 50 mg QHS PO 04/14/20 21:00 04/14/20 16:15 DC Vitamin D (Vitamin D3) 50,000 unit WEEKLY PO 04/21/20 09:00 04/21/20 09:00 Colchicine (Colcrys) 0.6 mg PRN DAILY PRN PO for GOUT pain 04/14/20 15:30 Diclofenac Sodium (Voltaren) 1 aaron PRN QID PRN TP PAIN 04/14/20 15:30 Nitroglycerin (Nitrostat) 0.4 mg PRN Q5MIN PRN SL CHEST PAIN 04/14/20 15:30 Melatonin (Melatonin) 3 mg PRN QHS PRN PO INSOMNIA 04/14/20 15:30 04/25/20 19:49 Clonazepam (KlonoPIN) 0.25 mg BID PO 04/14/20 21:00 04/15/20 15:46 DC 04/15/20 09:12 Clonazepam (KlonoPIN) 0.25 mg QHS PO 04/15/20 21:00 04/17/20 23:01 DC 04/17/20 21:10 Sertraline HCl (Zoloft) 50 mg DAILY PO 04/16/20 09:00 04/20/20 23:59 DC 04/20/20 08:19 Olanzapine (ZyPREXA ZYDIS) 2.5 mg PRN Q2HR PRN PO PSYCHOSIS 04/16/20 13:15 04/26/20 18:14 Quetiapine Fumarate (SEROquel) 12.5 mg TID@0900,1300,1700 PO 04/17/20 09:00 04/20/20 17:08 DC 04/20/20 11:33 Sertraline HCl (Zoloft) 75 mg DAILY PO 04/18/20 09:00 04/18/20 07:37 DC Sertraline HCl (Zoloft) 75 mg DAILY PO 04/18/20 09:00 04/18/20 08:23 DC Sertraline HCl (Zoloft) 75 mg DAILY PO 04/21/20 09:00 04/23/20 09:00 DC 04/23/20 07:57 Quetiapine Fumarate (SEROquel) 12.5 mg 1300,1700 PO 04/20/20 17:15 04/26/20 18:19 DC 04/26/20 16:54 Quetiapine Fumarate (SEROquel) 25 mg DAILY PO 04/21/20 09:00 04/26/20 18:19 DC 04/26/20 08:08 Sertraline HCl (Zoloft) 100 mg DAILY PO 04/24/20 09:00 04/26/20 08:08 Quetiapine Fumarate (SEROquel) 12.5 mg 0600,0900,1300,1700 PO 04/27/20 06:00 I have reviewed the current psychotropics carefully including drug interactions. Risk benefit ratio favors no change other than as noted in my dictated progress note. Diagnosis: Problems: (1) Major neurocognitive disorder (2) Impulse control disorder, unspecified (3) Anxiety disorder, unspecified (4) Dementia, vascular, with depression (5) Dementia, vascular, with delusions (6) Dementia in Alzheimer's disease with depression (7) Dementia in Alzheimer's disease with delusions (8) Dementia of the Alzheimer's type with early onset with behavioral disturbance RENITA SAGASTUME MD Apr 26, 2020 21:06
[2020-04-27] MEDS: LEVOTHYROXINE 100 MCG TABLET PO SCH (05:08)
[2020-04-27] MEDS ORDERED: QUEtiapine 25 MG TABLET. PO SCH (06:00)
[2020-04-27 06:28] VITALS: BP 180/77
[2020-04-27] MEDS: buPROPion XL 150 MG TAB.ER.24H PO SCH (08:39)
[2020-04-27] MEDS: QUEtiapine 25 MG TABLET. PO SCH ×3 (08:39→16:08)
[2020-04-27] MEDS: ASPIRIN CHEWABLE 81 MG TABLET. PO SCH (08:39)
[2020-04-27] MEDS: FINASTERIDE 5 MG TABLET. PO SCH (08:39)
[2020-04-27] MEDS: UBIDECARENONE 50 MG CAPSULE. PO SCH (08:39)
[2020-04-27] MEDS: METOPROLOL SUCC 24HR ER 50 MG TAB.ER.24H. PO SCH (08:39)
[2020-04-27] MEDS: SERTRALINE 100 MG TABLET. PO SCH (08:40)
[2020-04-27] MEDS: AZELASTINE NASAL SPRAY 30ML BOTTLE. NS SCH ×2 (08:40→21:00)
--- NOTE | 2020-04-27 08:54 | PDOC ---
Exam Note: Miguel Note: This note is a late entry for 04/25/2020 covers elements not covered in my initial note. Subjective: The patient was seen face to face in the evening of 04/25/2020 with Salomón BAY. Discussed with nursing staff, reviewed the chart. He slept 5-1/4 hours previous night. The patient remains confused, wandering, irritable with another patient on the unit. Review of Systems: No CV, , pulmonary, eye, ENT system symptoms on review. Ambulation impaired with walker. Mental Status Exam: The patient is oriented to himself. Insight and judgment, recent and remote memory, attention and concentration, fund of knowledge is poor consistent with his diagnosis. Laboratory Data: Reviewed. Impression: Major neurocognitive disorder Alzheimer vascular with delusion, depression, behavioral disturbance. Anxiety disorder unspecified. Impulse control disorder unspecified. Plan: No change from initial note. Assessment: Vital Signs/I&O: Vital Signs Date Time Temp Pulse Resp B/P (MAP) Pulse Ox O2 Delivery O2 Flow Rate FiO2 04/27/20 08:39 72 180/77 04/27/20 06:28 97.2 18 94 Room Air I & O 04/26/20 04/26/20 04/27/20 15:00 23:00 07:00 Intake Total 720 ml 320 ml 120 ml Balance 720 ml 320 ml 120 ml Current Medications: Meds: Current Medications Medications (Trade) Dose Ordered Sig/Afshin Route PRN Reason Start Time Stop Time Status Last Admin Dose Admin Acetaminophen (Tylenol) 650 mg PRN Q6HRS PRN PO MILD PAIN / TEMP > 100.3'F 04/14/20 15:00 Multi-Ingredient Ointment (Analgesic [place]) 1 aaron PRN QID PRN TP MUSCLE PAIN 04/14/20 15:00 Al Hydroxide/Mg Hydroxide (Mylanta Plus Xs) 15 ml PRN AFTMEALHC PRN PO DYSPEPSIA 04/14/20 15:00 Magnesium Hydroxide (Milk Of Magnesia) 2,400 mg PRN QHS PRN PO CONSTIPATION 04/14/20 15:00 Allopurinol (Zyloprim) 100 mg HS PO 04/14/20 21:00 04/26/20 20:05 Amlodipine Besylate (Norvasc) 10 mg DAILY PO 04/15/20 09:00 04/19/20 18:30 DC 04/19/20 10:18 Aripiprazole (Abilify) 2 mg DAILY PO 04/15/20 09:00 04/16/20 17:08 DC 04/16/20 10:00 Aspirin (Aspirin Chewable) 81 mg DAILYWBKFT PO 04/15/20 08:00 04/27/20 08:39 Azelastine HCl (Astelin) 2 spray BID NS 04/14/20 21:00 04/27/20 08:40 Bupropion HCl (Wellbutrin Xl) 150 mg DAILY PO 04/15/20 09:00 04/27/20 08:39 Chlorthalidone (Thalitone) 25 mg DAILY PO 04/15/20 09:00 04/19/20 18:30 DC 04/19/20 10:18 Clopidogrel Bisulfate (Plavix) 75 mg QHS PO 04/14/20 21:00 04/26/20 20:05 Coenzyme Q10 (Coenzyme Q10) 50 mg DAILY PO 04/15/20 09:00 04/27/20 08:39 Finasteride (Proscar) 5 mg DAILY PO 04/15/20 09:00 04/27/20 08:39 Levothyroxine Sodium (Synthroid) 100 mcg DAILY06 PO 04/15/20 06:00 04/27/20 05:08 Losartan Potassium (Cozaar) 50 mg DAILY PO 04/15/20 09:00 04/19/20 14:20 DC 04/19/20 10:19 Metoprolol Succinate (Toprol Xl) 100 mg DAILY PO 04/15/20 09:00 04/27/20 08:39 Fish Oil (Fish Oil) 1,000 mg DAILY PO 04/15/20 09:00 04/25/20 16:19 DC 04/23/20 07:57 Quetiapine Fumarate (SEROquel) 50 mg QHS PO 04/14/20 21:00 04/14/20 16:15 DC Vitamin D (Vitamin D3) 50,000 unit WEEKLY PO 04/21/20 09:00 04/21/20 09:00 Colchicine (Colcrys) 0.6 mg PRN DAILY PRN PO for GOUT pain 04/14/20 15:30 Diclofenac Sodium (Voltaren) 1 aaron PRN QID PRN TP PAIN 04/14/20 15:30 Nitroglycerin (Nitrostat) 0.4 mg PRN Q5MIN PRN SL CHEST PAIN 04/14/20 15:30 Melatonin (Melatonin) 3 mg PRN QHS PRN PO INSOMNIA 04/14/20 15:30 04/25/20 19:49 Clonazepam (KlonoPIN) 0.25 mg BID PO 04/14/20 21:00 04/15/20 15:46 DC 04/15/20 09:12 Clonazepam (KlonoPIN) 0.25 mg QHS PO 04/15/20 21:00 04/17/20 23:01 DC 04/17/20 21:10 Sertraline HCl (Zoloft) 50 mg DAILY PO 04/16/20 09:00 04/20/20 23:59 DC 04/20/20 08:19 Olanzapine (ZyPREXA ZYDIS) 2.5 mg PRN Q2HR PRN PO PSYCHOSIS 04/16/20 13:15 04/26/20 18:14 Quetiapine Fumarate (SEROquel) 12.5 mg TID@0900,1300,1700 PO 04/17/20 09:00 04/20/20 17:08 DC 04/20/20 11:33 Sertraline HCl (Zoloft) 75 mg DAILY PO 04/18/20 09:00 04/18/20 07:37 DC Sertraline HCl (Zoloft) 75 mg DAILY PO 04/18/20 09:00 04/18/20 08:23 DC Sertraline HCl (Zoloft) 75 mg DAILY PO 04/21/20 09:00 04/23/20 09:00 DC 04/23/20 07:57 Quetiapine Fumarate (SEROquel) 12.5 mg 1300,1700 PO 04/20/20 17:15 04/26/20 18:19 DC 04/26/20 16:54 Quetiapine Fumarate (SEROquel) 25 mg DAILY PO 04/21/20 09:00 04/26/20 18:19 DC 04/26/20 08:08 Sertraline HCl (Zoloft) 100 mg DAILY PO 04/24/20 09:00 04/27/20 08:40 Quetiapine Fumarate (SEROquel) 12.5 mg 0600,0900,1300,1700 PO 04/27/20 06:00 04/27/20 07:31 DC Quetiapine Fumarate (SEROquel) 12.5 mg 0600,1300,1700 PO 04/27/20 13:00 Quetiapine Fumarate (SEROquel) 25 mg DAILY PO 04/27/20 09:00 04/27/20 08:39 Current Medications Medications (Trade) Dose Ordered Sig/Afshin Route PRN Reason Start Time Stop Time Status Last Admin Dose Admin Quetiapine Fumarate (SEROquel) 25 mg DAILY PO 04/27/20 09:00 04/27/20 08:39 I have reviewed the current psychotropics carefully including drug interactions. Risk benefit ratio favors no change other than as noted in my dictated progress note. Diagnosis: Problems: (1) Major neurocognitive disorder (2) Impulse control disorder, unspecified (3) Anxiety disorder, unspecified (4) Dementia, vascular, with depression (5) Dementia, vascular, with delusions (6) Dementia in Alzheimer's disease with depression (7) Dementia in Alzheimer's disease with delusions (8) Dementia of the Alzheimer's type with early onset with behavioral disturbance RENITA SAGASTUME MD Apr 27, 2020 08:53
--- NOTE | 2020-04-27 09:24 | PDOC ---
Exam Note: Miguel Note: This note is a late entry for 04/26/2020 covers elements not covered in my initial note. Subjective: The patient was seen face to face in the evening of 04/26/2020 with Javi BAY. Discussed with nursing staff, reviewed the chart. He slept 6-1/4 hours previous night. The patient was somewhat delusional, talking about getting to work, upset that no one was taking him. He does better after Seroquel. Review of Systems: No CV, , pulmonary, eye, ENT system symptoms on review. Ambulation impaired with walker. Reliability poor. Mental Status Exam: The patient is oriented to himself. Insight and judgment, recent and remote memory, attention and concentration, fund of knowledge is poor consistent with his diagnosis. Laboratory Data: Reviewed. Impression: Major neurocognitive disorder Alzheimer vascular with delusion, depression, behavioral disturbance. Anxiety disorder unspecified. Impulse control disorder unspecified. Plan: The patient is currently on Seroquel 25 mg a day, 12.5 mg twice a day. We will increase it to 25 mg a day, 12.5 mg t.i.d. Continue rest unchanged including Zoloft, melatonin, Wellbutrin. Assessment: Vital Signs/I&O: Vital Signs Date Time Temp Pulse Resp B/P (MAP) Pulse Ox O2 Delivery O2 Flow Rate FiO2 04/27/20 08:39 72 180/77 04/27/20 06:28 97.2 18 94 Room Air I & O 04/26/20 04/26/20 04/27/20 14:59 22:59 06:59 Intake Total 720 ml 320 ml 120 ml Balance 720 ml 320 ml 120 ml Current Medications: Meds: Current Medications Medications (Trade) Dose Ordered Sig/Afshin Route PRN Reason Start Time Stop Time Status Last Admin Dose Admin Acetaminophen (Tylenol) 650 mg PRN Q6HRS PRN PO MILD PAIN / TEMP > 100.3'F 04/14/20 15:00 Multi-Ingredient Ointment (Analgesic [place]) 1 aaron PRN QID PRN TP MUSCLE PAIN 04/14/20 15:00 Al Hydroxide/Mg Hydroxide (Mylanta Plus Xs) 15 ml PRN AFTMEALHC PRN PO DYSPEPSIA 04/14/20 15:00 Magnesium Hydroxide (Milk Of Magnesia) 2,400 mg PRN QHS PRN PO CONSTIPATION 04/14/20 15:00 Allopurinol (Zyloprim) 100 mg HS PO 04/14/20 21:00 04/26/20 20:05 Amlodipine Besylate (Norvasc) 10 mg DAILY PO 04/15/20 09:00 04/19/20 18:30 DC 04/19/20 10:18 Aripiprazole (Abilify) 2 mg DAILY PO 04/15/20 09:00 04/16/20 17:08 DC 04/16/20 10:00 Aspirin (Aspirin Chewable) 81 mg DAILYWBKFT PO 04/15/20 08:00 04/27/20 08:39 Azelastine HCl (Astelin) 2 spray BID NS 04/14/20 21:00 04/27/20 08:40 Bupropion HCl (Wellbutrin Xl) 150 mg DAILY PO 04/15/20 09:00 04/27/20 08:39 Chlorthalidone (Thalitone) 25 mg DAILY PO 04/15/20 09:00 04/19/20 18:30 DC 04/19/20 10:18 Clopidogrel Bisulfate (Plavix) 75 mg QHS PO 04/14/20 21:00 04/26/20 20:05 Coenzyme Q10 (Coenzyme Q10) 50 mg DAILY PO 04/15/20 09:00 04/27/20 08:39 Finasteride (Proscar) 5 mg DAILY PO 04/15/20 09:00 04/27/20 08:39 Levothyroxine Sodium (Synthroid) 100 mcg DAILY06 PO 04/15/20 06:00 04/27/20 05:08 Losartan Potassium (Cozaar) 50 mg DAILY PO 04/15/20 09:00 04/19/20 14:20 DC 04/19/20 10:19 Metoprolol Succinate (Toprol Xl) 100 mg DAILY PO 04/15/20 09:00 04/27/20 08:39 Fish Oil (Fish Oil) 1,000 mg DAILY PO 04/15/20 09:00 04/25/20 16:19 DC 04/23/20 07:57 Quetiapine Fumarate (SEROquel) 50 mg QHS PO 04/14/20 21:00 04/14/20 16:15 DC Vitamin D (Vitamin D3) 50,000 unit WEEKLY PO 04/21/20 09:00 04/21/20 09:00 Colchicine (Colcrys) 0.6 mg PRN DAILY PRN PO for GOUT pain 04/14/20 15:30 Diclofenac Sodium (Voltaren) 1 aaron PRN QID PRN TP PAIN 04/14/20 15:30 Nitroglycerin (Nitrostat) 0.4 mg PRN Q5MIN PRN SL CHEST PAIN 04/14/20 15:30 Melatonin (Melatonin) 3 mg PRN QHS PRN PO INSOMNIA 04/14/20 15:30 04/25/20 19:49 Clonazepam (KlonoPIN) 0.25 mg BID PO 04/14/20 21:00 04/15/20 15:46 DC 04/15/20 09:12 Clonazepam (KlonoPIN) 0.25 mg QHS PO 04/15/20 21:00 04/17/20 23:01 DC 04/17/20 21:10 Sertraline HCl (Zoloft) 50 mg DAILY PO 04/16/20 09:00 04/20/20 23:59 DC 04/20/20 08:19 Olanzapine (ZyPREXA ZYDIS) 2.5 mg PRN Q2HR PRN PO PSYCHOSIS 04/16/20 13:15 04/26/20 18:14 Quetiapine Fumarate (SEROquel) 12.5 mg TID@0900,1300,1700 PO 04/17/20 09:00 04/20/20 17:08 DC 04/20/20 11:33 Sertraline HCl (Zoloft) 75 mg DAILY PO 04/18/20 09:00 04/18/20 07:37 DC Sertraline HCl (Zoloft) 75 mg DAILY PO 04/18/20 09:00 04/18/20 08:23 DC Sertraline HCl (Zoloft) 75 mg DAILY PO 04/21/20 09:00 04/23/20 09:00 DC 04/23/20 07:57 Quetiapine Fumarate (SEROquel) 12.5 mg 1300,1700 PO 04/20/20 17:15 04/26/20 18:19 DC 04/26/20 16:54 Quetiapine Fumarate (SEROquel) 25 mg DAILY PO 04/21/20 09:00 04/26/20 18:19 DC 04/26/20 08:08 Sertraline HCl (Zoloft) 100 mg DAILY PO 04/24/20 09:00 04/27/20 08:40 Quetiapine Fumarate (SEROquel) 12.5 mg 0600,0900,1300,1700 PO 04/27/20 06:00 04/27/20 07:31 DC Quetiapine Fumarate (SEROquel) 12.5 mg 0600,1300,1700 PO 04/27/20 13:00 Quetiapine Fumarate (SEROquel) 25 mg DAILY PO 04/27/20 09:00 04/27/20 08:39 Current Medications Medications (Trade) Dose Ordered Sig/Afshin Route PRN Reason Start Time Stop Time Status Last Admin Dose Admin Quetiapine Fumarate (SEROquel) 25 mg DAILY PO 04/27/20 09:00 04/27/20 08:39 I have reviewed the current psychotropics carefully including drug interactions. Risk benefit ratio favors no change other than as noted in my dictated progress note. Diagnosis: Problems: (1) Major neurocognitive disorder (2) Impulse control disorder, unspecified (3) Anxiety disorder, unspecified (4) Dementia, vascular, with depression (5) Dementia, vascular, with delusions (6) Dementia in Alzheimer's disease with depression (7) Dementia in Alzheimer's disease with delusions (8) Dementia of the Alzheimer's type with early onset with behavioral disturbance RENITA SAGASTUME MD Apr 27, 2020 09:23
[2020-04-27 16:23] VITALS: BP 105/62
--- NOTE | 2020-04-27 21:05 | PDOC ---
Exam Note: Miguel Note: Please also refer to the separate dictated note~for this date of service dictated separately.~Patient seen individually. Discussed the patient with Nursing staff reviewed the chart.~Reviewed interim history and current functioning. Reviewed vital signs,~Labs/ Radiology~and current medications noted below. Continue current treatment with the changes noted in the dictated addendum note Assessment: Vital Signs/I&O: Vital Signs Date Time Temp Pulse Resp B/P (MAP) Pulse Ox O2 Delivery O2 Flow Rate FiO2 04/27/20 16:23 97.3 59 16 105/62 (76) 98 04/27/20 06:28 Room Air I & O 04/26/20 04/26/20 04/27/20 14:59 22:59 06:59 Intake Total 720 ml 320 ml 120 ml Balance 720 ml 320 ml 120 ml Current Medications: Meds: Current Medications Medications (Trade) Dose Ordered Sig/Afshin Route PRN Reason Start Time Stop Time Status Last Admin Dose Admin Acetaminophen (Tylenol) 650 mg PRN Q6HRS PRN PO MILD PAIN / TEMP > 100.3'F 04/14/20 15:00 04/27/20 11:08 Multi-Ingredient Ointment (Analgesic [place]) 1 aaron PRN QID PRN TP MUSCLE PAIN 04/14/20 15:00 Al Hydroxide/Mg Hydroxide (Mylanta Plus Xs) 15 ml PRN AFTMEALHC PRN PO DYSPEPSIA 04/14/20 15:00 Magnesium Hydroxide (Milk Of Magnesia) 2,400 mg PRN QHS PRN PO CONSTIPATION 04/14/20 15:00 Allopurinol (Zyloprim) 100 mg HS PO 04/14/20 21:00 04/26/20 20:05 Amlodipine Besylate (Norvasc) 10 mg DAILY PO 04/15/20 09:00 04/19/20 18:30 DC 04/19/20 10:18 Aripiprazole (Abilify) 2 mg DAILY PO 04/15/20 09:00 04/16/20 17:08 DC 04/16/20 10:00 Aspirin (Aspirin Chewable) 81 mg DAILYWBKFT PO 04/15/20 08:00 04/27/20 08:39 Azelastine HCl (Astelin) 2 spray BID NS 04/14/20 21:00 04/27/20 08:40 Bupropion HCl (Wellbutrin Xl) 150 mg DAILY PO 04/15/20 09:00 04/27/20 08:39 Chlorthalidone (Thalitone) 25 mg DAILY PO 04/15/20 09:00 04/19/20 18:30 DC 04/19/20 10:18 Clopidogrel Bisulfate (Plavix) 75 mg QHS PO 04/14/20 21:00 04/26/20 20:05 Coenzyme Q10 (Coenzyme Q10) 50 mg DAILY PO 04/15/20 09:00 04/27/20 08:39 Finasteride (Proscar) 5 mg DAILY PO 04/15/20 09:00 04/27/20 08:39 Levothyroxine Sodium (Synthroid) 100 mcg DAILY06 PO 04/15/20 06:00 04/27/20 05:08 Losartan Potassium (Cozaar) 50 mg DAILY PO 04/15/20 09:00 04/19/20 14:20 DC 04/19/20 10:19 Metoprolol Succinate (Toprol Xl) 100 mg DAILY PO 04/15/20 09:00 04/27/20 08:39 Fish Oil (Fish Oil) 1,000 mg DAILY PO 04/15/20 09:00 04/25/20 16:19 DC 04/23/20 07:57 Quetiapine Fumarate (SEROquel) 50 mg QHS PO 04/14/20 21:00 04/14/20 16:15 DC Vitamin D (Vitamin D3) 50,000 unit WEEKLY PO 04/21/20 09:00 04/21/20 09:00 Colchicine (Colcrys) 0.6 mg PRN DAILY PRN PO for GOUT pain 04/14/20 15:30 Diclofenac Sodium (Voltaren) 1 aaron PRN QID PRN TP PAIN 04/14/20 15:30 Nitroglycerin (Nitrostat) 0.4 mg PRN Q5MIN PRN SL CHEST PAIN 04/14/20 15:30 Melatonin (Melatonin) 3 mg PRN QHS PRN PO INSOMNIA 04/14/20 15:30 04/25/20 19:49 Clonazepam (KlonoPIN) 0.25 mg BID PO 04/14/20 21:00 04/15/20 15:46 DC 04/15/20 09:12 Clonazepam (KlonoPIN) 0.25 mg QHS PO 04/15/20 21:00 04/17/20 23:01 DC 04/17/20 21:10 Sertraline HCl (Zoloft) 50 mg DAILY PO 04/16/20 09:00 04/20/20 23:59 DC 04/20/20 08:19 Olanzapine (ZyPREXA ZYDIS) 2.5 mg PRN Q2HR PRN PO PSYCHOSIS 04/16/20 13:15 04/27/20 16:07 Quetiapine Fumarate (SEROquel) 12.5 mg TID@0900,1300,1700 PO 04/17/20 09:00 04/20/20 17:08 DC 04/20/20 11:33 Sertraline HCl (Zoloft) 75 mg DAILY PO 04/18/20 09:00 04/18/20 07:37 DC Sertraline HCl (Zoloft) 75 mg DAILY PO 04/18/20 09:00 04/18/20 08:23 DC Sertraline HCl (Zoloft) 75 mg DAILY PO 04/21/20 09:00 04/23/20 09:00 DC 04/23/20 07:57 Quetiapine Fumarate (SEROquel) 12.5 mg 1300,1700 PO 04/20/20 17:15 04/26/20 18:19 DC 04/26/20 16:54 Quetiapine Fumarate (SEROquel) 25 mg DAILY PO 04/21/20 09:00 04/26/20 18:19 DC 04/26/20 08:08 Sertraline HCl (Zoloft) 100 mg DAILY PO 04/24/20 09:00 04/27/20 08:40 Quetiapine Fumarate (SEROquel) 12.5 mg 0600,0900,1300,1700 PO 04/27/20 06:00 04/27/20 07:31 DC Quetiapine Fumarate (SEROquel) 12.5 mg 0600,1300,1700 PO 04/27/20 13:00 04/27/20 16:08 Quetiapine Fumarate (SEROquel) 25 mg DAILY PO 04/27/20 09:00 04/27/20 08:39 Current Medications Medications (Trade) Dose Ordered Sig/Afshin Route PRN Reason Start Time Stop Time Status Last Admin Dose Admin Quetiapine Fumarate (SEROquel) 12.5 mg 0600,1300,1700 PO 04/27/20 13:00 04/27/20 16:08 Quetiapine Fumarate (SEROquel) 25 mg DAILY PO 04/27/20 09:00 04/27/20 08:39 I have reviewed the current psychotropics carefully including drug interactions. Risk benefit ratio favors no change other than as noted in my dictated progress note. Diagnosis: Problems: (1) Major neurocognitive disorder (2) Impulse control disorder, unspecified (3) Anxiety disorder, unspecified (4) Dementia, vascular, with depression (5) Dementia, vascular, with delusions (6) Dementia in Alzheimer's disease with depression (7) Dementia in Alzheimer's disease with delusions (8) Dementia of the Alzheimer's type with early onset with behavioral disturbance RENITA SAGASTUME MD Apr 27, 2020 21:05
[2020-04-27] MEDS: CLOPIDOGREL BISULFATE 75 MG TABLET PO SCH (21:13)
[2020-04-27] MEDS: ALLOPURINOL 100 MG TABLET. PO SCH (21:13)
--- NOTE | 2020-04-27 22:59 | PN ---
DATE: 04/27/2020 PSYCHIATRIC PROGRESS NOTE This note covers elements not covered in my initial note 04/27/2020. SUBJECTIVE: I met with the patient evening of 04/27/2020. The patient slept 6-1/4 hours previous night. Discussed with PHU Gardner. Overall, the patient remains confused, talking about wanting to catch a plane to get out of here. Alert, oriented to himself and place at one point during the day. REVIEW OF SYSTEMS: Positive for back pain. He is exit seeking. No CV, , pulmonary, eye system symptoms on review. MENTAL STATUS EXAM: Oriented to himself. Insight, judgment, recent and remote memory, attention, concentration, fund of knowledge poor, consistent with his diagnosis mentioned in my initial note. PLAN: No change from initial note. MAN Rosio SAGASTUME MD DR: DALJIT/bruce JOB#: [id number] / [id number]
[2020-04-28] MEDS: QUEtiapine 25 MG TABLET. PO SCH ×4 (05:19→17:07)
[2020-04-28] MEDS: LEVOTHYROXINE 100 MCG TABLET PO SCH (05:19)
[2020-04-28 06:06] VITALS: BP 175/79
--- NOTE | 2020-04-28 12:20 | TX PLAN ---
Interdisciplinary Tx Plan Admission Information Apr 14, 2020 at 14:03 Legal Status (on Admission): Voluntary DPOA/Guardian Name: -Marlene Carpenter and Son-Damian "Elias or Kaylee Carpenter Contact Phone Number: [place] [phone] SonWill [phone] Other Contact Name: Cora Brooks Other Contact Verified Code Status: DNR Allergies: Coded Allergies: No Known Drug Allergies (Unverified , 04/14/20) Diagnoses Primary Diagnosis: Major neurocognitive disorder, Alzheimer vascular with delusion, depression, behavioral disturbance; anxiety disorder, unspecified; impulse control disorder, unspecified. Reasons for Admission: Aggressive, Delusions, Agitated, Sig. Change Sleep, Angry, Combative, Confusion/Disoriented, Poor impulse control Problem in Patient's Words: Per facility pt has had a couple of falls, has threatening behavior toward other residents and staff. He has been exit seeking. Pt has eloped from his facility and the police brought him back. Per pt , Marlene. Pt is mad at her and their son, Elias, for putting him in a facility. He is very aggressive and thinks that everyone is kidnapped and is in alf. Additional Admission Comments: Per intak record, pt thinks he has been kidnapped and is in alf. He is paranoid, delusional. He eloped from the facility in which he lives and police brought him back. Pt has been threatening harm to staff. He is agitated, exit seeking, has insomnia, and sundowns. Problems Active Problems: Aggression, delusions, agitation, combative, confused Inactive Problems: None noted at this time. Pt Strengths/Limitations Ability for [place]: Poor Cognitive Functioning/Ability: Poor Communication Skills/Ability: Fair Financial Resources: Good Insight/Judgement: Poor Intellectual Ability: Good Physical Health: Fair Social Skills: Fair Stability in Family: Excellent Stability in School/Work: Good Verbal Skills: Good Discharge Criteria Discharge Criteria: Able meet basic life need, Adequate arrangements @DC, Adequate self-care, Verbal commit med comply, Improved behavior Other Discharge Comments: None noted at this time. Preliminary Discharge Plan Preliminary DC Plan: Memory Care Special Precautions Fall Risk: High Initial D/C Plan Pt plan is to return to [facility] memory care facility. Identified Discharge Needs: Follow-up with PCP Currently Utilized Resources Currently Utilized Resources/P: PCP is Dr. Fadi Garrison DPOA is Marlene and alternate son Damian alfred "Elias or Fernando" Financial DPOA is dtr Miladis Living facility is [facility]; contact is Cora Brooks Referrals Community Resources: None noted at this time Identified Problems/Hx/Goals Objectives/Short-Term Goals Short Term Goals: Control abnormal behavior, Dec. Aggression, Dec. Hallucination/Delus, Dec. Symp. Depression, Medication Stabilization, Monitor Med Effects, Prevent Deterioration, Promote Coping Skill Short Term Goals in Patient's: Reduce aggression and delusions. Improve or preserve quality of life. Interventions/Frequency Staff Interventions/Frequency&: Psychiatry to assess pt three times per week for medication management. Nursing to assess behaviors, monitor medications, and complete 15 minute checks daily. Social work to see pt at least twice weekly to aid in return to placement. Activities to encourage pt to participate in group activities daily. History Vocational History: After pt graduated high school, he moved to [place] and worked for the [employer] team. 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 Education: Four years of college. Pt attended [employer] for four years and played football there. Community Follow-up PCP Community Provider/Family Inpu: Marlene, /DPOA, and Elias, son/DPOA, are actively involved with pt care and would like updates a couple times per week. Treatment Plan Explained Patient/Leaf Stamper had this treatment plan explained to him/her as indicated by the signature below and has been given the opportunity to ask questions and make suggestions: Date: Patient/Leaf Stamper Signature: Status Update Update Pt has been eating 75% of his meals and averaging 6.5 hours of sleep per night. Pt continues to be pleasantly confused and still thinks he is either at the airport or he tries to sell others insurance plans. Pt is still med compliant. Pts medications are Wellbutrin, Melatonin, Zoloft, Zydis PRN, Zyprexa PRN and Seroquel. Plan is for pt to return to facility once stable. GIORGIO PLAZA Apr 28, 2020 12:20
[2020-04-28] MEDS: buPROPion XL 150 MG TAB.ER.24H PO SCH (12:29)
[2020-04-28] MEDS: SERTRALINE 100 MG TABLET. PO SCH (12:29)
[2020-04-28] MEDS: UBIDECARENONE 50 MG CAPSULE. PO SCH (12:29)
[2020-04-28] MEDS: METOPROLOL SUCC 24HR ER 50 MG TAB.ER.24H. PO SCH (12:29)
[2020-04-28] MEDS: ASPIRIN CHEWABLE 81 MG TABLET. PO SCH (12:29)
[2020-04-28] MEDS: FINASTERIDE 5 MG TABLET. PO SCH (12:30)
[2020-04-28] MEDS: CHOLECALCIFEROL (VITAMIN D3) 50,000 UNIT CAPSULE PO SCH (12:31)
[2020-04-28] MEDS: AZELASTINE NASAL SPRAY 30ML BOTTLE. NS SCH ×2 (12:34→19:55)
[2020-04-28 16:03] VITALS: BP 157/75
[2020-04-28 18:45] VITALS: BP 118/73
[2020-04-28 18:46] VITALS: BP 87/60
[2020-04-28] MEDS: CLOPIDOGREL BISULFATE 75 MG TABLET PO SCH (19:55)
[2020-04-28] MEDS: ALLOPURINOL 100 MG TABLET. PO SCH (19:55)
--- NOTE | 2020-04-28 21:12 | PDOC ---
Exam Note: Miguel Note: Please also refer to the separate dictated note~for this date of service dictated separately.~Patient seen individually. Discussed the patient with Nursing staff reviewed the chart.~Reviewed interim history and current functioning. Reviewed vital signs,~Labs/ Radiology~and current medications noted below. Continue current treatment with the changes noted in the dictated addendum note Assessment: Vital Signs/I&O: Vital Signs Date Time Temp Pulse Resp B/P (MAP) Pulse Ox O2 Delivery O2 Flow Rate FiO2 04/28/20 18:46 76 87/60 (69) 04/28/20 16:03 98.0 18 96 04/27/20 06:28 Room Air I & O 04/27/20 04/27/20 04/28/20 14:59 22:59 06:59 Intake Total 360 ml 240 ml Balance 360 ml 240 ml Current Medications: Meds: Current Medications Medications (Trade) Dose Ordered Sig/Afshin Route PRN Reason Start Time Stop Time Status Last Admin Dose Admin Acetaminophen (Tylenol) 650 mg PRN Q6HRS PRN PO MILD PAIN / TEMP > 100.3'F 04/14/20 15:00 04/27/20 11:08 Multi-Ingredient Ointment (Analgesic [employer] [employer]) 1 aaron PRN QID PRN TP MUSCLE PAIN 04/14/20 15:00 Al Hydroxide/Mg Hydroxide (Mylanta Plus Xs) 15 ml PRN AFTMEALHC PRN PO DYSPEPSIA 04/14/20 15:00 Magnesium Hydroxide (Milk Of Magnesia) 2,400 mg PRN QHS PRN PO CONSTIPATION 04/14/20 15:00 Allopurinol (Zyloprim) 100 mg HS PO 04/14/20 21:00 04/28/20 19:55 Amlodipine Besylate (Norvasc) 10 mg DAILY PO 04/15/20 09:00 04/19/20 18:30 DC 04/19/20 10:18 Aripiprazole (Abilify) 2 mg DAILY PO 04/15/20 09:00 04/16/20 17:08 DC 04/16/20 10:00 Aspirin (Aspirin Chewable) 81 mg DAILYWBKFT PO 04/15/20 08:00 04/28/20 12:29 Azelastine HCl (Astelin) 2 spray BID NS 04/14/20 21:00 04/28/20 19:55 Bupropion HCl (Wellbutrin Xl) 150 mg DAILY PO 04/15/20 09:00 04/28/20 12:29 Chlorthalidone (Thalitone) 25 mg DAILY PO 04/15/20 09:00 04/19/20 18:30 DC 04/19/20 10:18 Clopidogrel Bisulfate (Plavix) 75 mg QHS PO 04/14/20 21:00 04/28/20 19:55 Coenzyme Q10 (Coenzyme Q10) 50 mg DAILY PO 04/15/20 09:00 04/28/20 12:29 Finasteride (Proscar) 5 mg DAILY PO 04/15/20 09:00 04/28/20 12:30 Levothyroxine Sodium (Synthroid) 100 mcg DAILY06 PO 04/15/20 06:00 04/28/20 05:19 Losartan Potassium (Cozaar) 50 mg DAILY PO 04/15/20 09:00 04/19/20 14:20 DC 04/19/20 10:19 Metoprolol Succinate (Toprol Xl) 100 mg DAILY PO 04/15/20 09:00 04/28/20 12:29 Fish Oil (Fish Oil) 1,000 mg DAILY PO 04/15/20 09:00 04/25/20 16:19 DC 04/23/20 07:57 Quetiapine Fumarate (SEROquel) 50 mg QHS PO 04/14/20 21:00 04/14/20 16:15 DC Vitamin D (Vitamin D3) 50,000 unit WEEKLY PO 04/21/20 09:00 04/28/20 12:31 Colchicine (Colcrys) 0.6 mg PRN DAILY PRN PO for GOUT pain 04/14/20 15:30 Diclofenac Sodium (Voltaren) 1 aaron PRN QID PRN TP PAIN 04/14/20 15:30 Nitroglycerin (Nitrostat) 0.4 mg PRN Q5MIN PRN SL CHEST PAIN 04/14/20 15:30 Melatonin (Melatonin) 3 mg PRN QHS PRN PO INSOMNIA 04/14/20 15:30 04/25/20 19:49 Clonazepam (KlonoPIN) 0.25 mg BID PO 04/14/20 21:00 04/15/20 15:46 DC 04/15/20 09:12 Clonazepam (KlonoPIN) 0.25 mg QHS PO 04/15/20 21:00 04/17/20 23:01 DC 04/17/20 21:10 Sertraline HCl (Zoloft) 50 mg DAILY PO 04/16/20 09:00 04/20/20 23:59 DC 04/20/20 08:19 Olanzapine (ZyPREXA ZYDIS) 2.5 mg PRN Q2HR PRN PO PSYCHOSIS 04/16/20 13:15 04/27/20 21:17 Quetiapine Fumarate (SEROquel) 12.5 mg TID@0900,1300,1700 PO 04/17/20 09:00 04/20/20 17:08 DC 04/20/20 11:33 Sertraline HCl (Zoloft) 75 mg DAILY PO 04/18/20 09:00 04/18/20 07:37 DC Sertraline HCl (Zoloft) 75 mg DAILY PO 04/18/20 09:00 04/18/20 08:23 DC Sertraline HCl (Zoloft) 75 mg DAILY PO 04/21/20 09:00 04/23/20 09:00 DC 04/23/20 07:57 Quetiapine Fumarate (SEROquel) 12.5 mg 1300,1700 PO 04/20/20 17:15 04/26/20 18:19 DC 04/26/20 16:54 Quetiapine Fumarate (SEROquel) 25 mg DAILY PO 04/21/20 09:00 04/26/20 18:19 DC 04/26/20 08:08 Sertraline HCl (Zoloft) 100 mg DAILY PO 04/24/20 09:00 04/28/20 12:29 Quetiapine Fumarate (SEROquel) 12.5 mg 0600,0900,1300,1700 PO 04/27/20 06:00 04/27/20 07:31 DC Quetiapine Fumarate (SEROquel) 12.5 mg 0600,1300,1700 PO 04/27/20 13:00 04/28/20 17:07 Quetiapine Fumarate (SEROquel) 25 mg DAILY PO 04/27/20 09:00 04/28/20 12:31 I have reviewed the current psychotropics carefully including drug interactions. Risk benefit ratio favors no change other than as noted in my dictated progress note. 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
[2020-04-29] MEDS: FINASTERIDE 5 MG TABLET. PO SCH (06:07)
[2020-04-29] MEDS: LEVOTHYROXINE 100 MCG TABLET PO SCH (06:07)
[2020-04-29] MEDS: METOPROLOL SUCC 24HR ER 50 MG TAB.ER.24H. PO SCH (06:08)
[2020-04-29] MEDS: QUEtiapine 25 MG TABLET. PO SCH ×4 (06:09→16:05)
[2020-04-29] MEDS: UBIDECARENONE 50 MG CAPSULE. PO SCH (06:09)
[2020-04-29] MEDS: AZELASTINE NASAL SPRAY 30ML BOTTLE. NS SCH ×2 (06:09→21:00)
[2020-04-29] MEDS: ASPIRIN CHEWABLE 81 MG TABLET. PO SCH (06:09)
[2020-04-29] MEDS: SERTRALINE 100 MG TABLET. PO SCH (06:09)
[2020-04-29] MEDS: buPROPion XL 150 MG TAB.ER.24H PO SCH (06:09)
[2020-04-29 06:34] VITALS: BP 145/72
[2020-04-29 14:00] VITALS: BP 156/93
--- NOTE | 2020-04-29 20:58 | PDOC ---
Exam Note: Miguel Note: Please also refer to the separate dictated note~for this date of service dictated separately.~Patient seen individually. Discussed the patient with Nursing staff reviewed the chart.~Reviewed interim history and current functioning. Reviewed vital signs,~Labs/ Radiology~and current medications noted below. Continue current treatment with the changes noted in the dictated addendum note Assessment: Vital Signs/I&O: Vital Signs Date Time Temp Pulse Resp B/P (MAP) Pulse Ox O2 Delivery O2 Flow Rate FiO2 04/29/20 06:34 97.6 65 14 145/72 (96) 98 04/27/20 06:28 Room Air I & O 04/28/20 04/28/20 04/29/20 15:00 23:00 07:00 Intake Total 600 ml 360 ml Balance 600 ml 360 ml Current Medications: Meds: Current Medications Medications (Trade) Dose Ordered Sig/Afshin Route PRN Reason Start Time Stop Time Status Last Admin Dose Admin Acetaminophen (Tylenol) 650 mg PRN Q6HRS PRN PO MILD PAIN / TEMP > 100.3'F 04/14/20 15:00 04/27/20 11:08 Multi-Ingredient Ointment (Analgesic [place]) 1 aaron PRN QID PRN TP MUSCLE PAIN 04/14/20 15:00 Al Hydroxide/Mg Hydroxide (Mylanta Plus Xs) 15 ml PRN AFTMEALHC PRN PO DYSPEPSIA 04/14/20 15:00 Magnesium Hydroxide (Milk Of Magnesia) 2,400 mg PRN QHS PRN PO CONSTIPATION 04/14/20 15:00 Allopurinol (Zyloprim) 100 mg HS PO 04/14/20 21:00 04/28/20 19:55 Amlodipine Besylate (Norvasc) 10 mg DAILY PO 04/15/20 09:00 04/19/20 18:30 DC 04/19/20 10:18 Aripiprazole (Abilify) 2 mg DAILY PO 04/15/20 09:00 04/16/20 17:08 DC 04/16/20 10:00 Aspirin (Aspirin Chewable) 81 mg DAILYWBKFT PO 04/15/20 08:00 04/29/20 06:09 Azelastine HCl (Astelin) 2 spray BID NS 04/14/20 21:00 04/29/20 06:09 Bupropion HCl (Wellbutrin Xl) 150 mg DAILY PO 04/15/20 09:00 04/29/20 06:09 Chlorthalidone (Thalitone) 25 mg DAILY PO 04/15/20 09:00 04/19/20 18:30 DC 04/19/20 10:18 Clopidogrel Bisulfate (Plavix) 75 mg QHS PO 04/14/20 21:00 04/28/20 19:55 Coenzyme Q10 (Coenzyme Q10) 50 mg DAILY PO 04/15/20 09:00 04/29/20 06:09 Finasteride (Proscar) 5 mg DAILY PO 04/15/20 09:00 04/29/20 10:30 DC 04/29/20 06:07 Levothyroxine Sodium (Synthroid) 100 mcg DAILY06 PO 04/15/20 06:00 04/29/20 06:07 Losartan Potassium (Cozaar) 50 mg DAILY PO 04/15/20 09:00 04/19/20 14:20 DC 04/19/20 10:19 Metoprolol Succinate (Toprol Xl) 100 mg DAILY PO 04/15/20 09:00 04/28/20 12:29 Fish Oil (Fish Oil) 1,000 mg DAILY PO 04/15/20 09:00 04/25/20 16:19 DC 04/23/20 07:57 Quetiapine Fumarate (SEROquel) 50 mg QHS PO 04/14/20 21:00 04/14/20 16:15 DC Vitamin D (Vitamin D3) 50,000 unit WEEKLY PO 04/21/20 09:00 04/28/20 12:31 Colchicine (Colcrys) 0.6 mg PRN DAILY PRN PO for GOUT pain 04/14/20 15:30 Diclofenac Sodium (Voltaren) 1 aaron PRN QID PRN TP PAIN 04/14/20 15:30 Nitroglycerin (Nitrostat) 0.4 mg PRN Q5MIN PRN SL CHEST PAIN 04/14/20 15:30 Melatonin (Melatonin) 3 mg PRN QHS PRN PO INSOMNIA 04/14/20 15:30 04/25/20 19:49 Clonazepam (KlonoPIN) 0.25 mg BID PO 04/14/20 21:00 04/15/20 15:46 DC 04/15/20 09:12 Clonazepam (KlonoPIN) 0.25 mg QHS PO 04/15/20 21:00 04/17/20 23:01 DC 04/17/20 21:10 Sertraline HCl (Zoloft) 50 mg DAILY PO 04/16/20 09:00 04/20/20 23:59 DC 04/20/20 08:19 Olanzapine (ZyPREXA ZYDIS) 2.5 mg PRN Q2HR PRN PO PSYCHOSIS 04/16/20 13:15 04/27/20 21:17 Quetiapine Fumarate (SEROquel) 12.5 mg TID@0900,1300,1700 PO 04/17/20 09:00 04/20/20 17:08 DC 04/20/20 11:33 Sertraline HCl (Zoloft) 75 mg DAILY PO 04/18/20 09:00 04/18/20 07:37 DC Sertraline HCl (Zoloft) 75 mg DAILY PO 04/18/20 09:00 04/18/20 08:23 DC Sertraline HCl (Zoloft) 75 mg DAILY PO 04/21/20 09:00 04/23/20 09:00 DC 04/23/20 07:57 Quetiapine Fumarate (SEROquel) 12.5 mg 1300,1700 PO 04/20/20 17:15 04/26/20 18:19 DC 04/26/20 16:54 Quetiapine Fumarate (SEROquel) 25 mg DAILY PO 04/21/20 09:00 04/26/20 18:19 DC 04/26/20 08:08 Sertraline HCl (Zoloft) 100 mg DAILY PO 04/24/20 09:00 04/29/20 06:09 Quetiapine Fumarate (SEROquel) 12.5 mg 0600,0900,1300,1700 PO 04/27/20 06:00 04/27/20 07:31 DC Quetiapine Fumarate (SEROquel) 12.5 mg 0600,1300,1700 PO 04/27/20 13:00 04/29/20 16:05 Quetiapine Fumarate (SEROquel) 25 mg DAILY PO 04/27/20 09:00 04/29/20 08:25 I have reviewed the current psychotropics carefully including drug interactions. Risk benefit ratio favors no change other than as noted in my dictated progress note. 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
[2020-04-29] MEDS: CLOPIDOGREL BISULFATE 75 MG TABLET PO SCH (21:04)
[2020-04-29] MEDS: MELATONIN 3 MG TABLET PO PRN (21:04)
[2020-04-29] MEDS: ALLOPURINOL 100 MG TABLET. PO SCH (21:04)
[2020-04-30] MEDS: buPROPion XL 150 MG TAB.ER.24H PO SCH (04:53)
[2020-04-30] MEDS: ASPIRIN CHEWABLE 81 MG TABLET. PO SCH (04:54)
[2020-04-30] MEDS: QUEtiapine 25 MG TABLET. PO SCH ×4 (04:54→17:21)
[2020-04-30] MEDS: SERTRALINE 100 MG TABLET. PO SCH (04:54)
[2020-04-30] MEDS: UBIDECARENONE 50 MG CAPSULE. PO SCH (04:54)
[2020-04-30] MEDS: LEVOTHYROXINE 100 MCG TABLET PO SCH (04:55)
[2020-04-30] MEDS: AZELASTINE NASAL SPRAY 30ML BOTTLE. NS SCH ×2 (04:55→20:48)
[2020-04-30] MEDS: METOPROLOL SUCC 24HR ER 50 MG TAB.ER.24H. PO SCH (06:16)
[2020-04-30 06:31] VITALS: BP 163/74
--- NOTE | 2020-04-30 07:29 | PDOC ---
Exam Note: Miguel Note: This note is a late entry for 04/28/2020 covers elements not covered in my initial note. Subjective: The patient was seen face to face in the morning of 04/28/2020 for a treatment team meeting with Damaris Dunn, Connie Wesley and Evy (social service manager), Elham Bustillos, activity therapy and Javi BAY, reviewed the chart. He slept 5-1/2 hours previous night. The patients son Elias attended the treatment team meeting as well. Appetite is 35%. He remains confused, believes he sells insurance. Review of Systems: No CV, , pulmonary, eye, ENT system symptoms on review. Reliability poor. Mental Status Exam: The patient is oriented to himself. Insight and judgment, recent and remote memory, attention and concentration, fund of knowledge is poor consistent with his diagnosis. Laboratory Data: Reviewed. Impression: Major neurocognitive disorder Alzheimer vascular with delusion, depression, behavioral disturbance. Anxiety disorder unspecified. Impulse control disorder unspecified. Plan: No change from initial note. He remains on Seroquel, Wellbutrin, Zoloft. Make further adjustments as clinically indicated. Assessment: Vital Signs/I&O: Vital Signs Date Time Temp Pulse Resp B/P (MAP) Pulse Ox O2 Delivery O2 Flow Rate FiO2 04/30/20 06:31 97.3 80 18 163/74 (103) 94 04/29/20 14:00 Room Air I & O 04/29/20 04/29/20 04/30/20 15:00 23:00 07:00 Intake Total 360 ml 360 ml Balance 360 ml 360 ml Current Medications: Meds: Current Medications Medications (Trade) Dose Ordered Sig/Afshin Route PRN Reason Start Time Stop Time Status Last Admin Dose Admin Acetaminophen (Tylenol) 650 mg PRN Q6HRS PRN PO MILD PAIN / TEMP > 100.3'F 04/14/20 15:00 04/27/20 11:08 Multi-Ingredient Ointment (Analgesic [place]) 1 aaron PRN QID PRN TP MUSCLE PAIN 04/14/20 15:00 Al Hydroxide/Mg Hydroxide (Mylanta Plus Xs) 15 ml PRN AFTMEALHC PRN PO DYSPEPSIA 04/14/20 15:00 Magnesium Hydroxide (Milk Of Magnesia) 2,400 mg PRN QHS PRN PO CONSTIPATION 04/14/20 15:00 Allopurinol (Zyloprim) 100 mg HS PO 04/14/20 21:00 04/29/20 21:04 Amlodipine Besylate (Norvasc) 10 mg DAILY PO 04/15/20 09:00 04/19/20 18:30 DC 04/19/20 10:18 Aripiprazole (Abilify) 2 mg DAILY PO 04/15/20 09:00 04/16/20 17:08 DC 04/16/20 10:00 Aspirin (Aspirin Chewable) 81 mg DAILYWBKFT PO 04/15/20 08:00 04/30/20 04:54 Azelastine HCl (Astelin) 2 spray BID NS 04/14/20 21:00 04/30/20 04:55 Bupropion HCl (Wellbutrin Xl) 150 mg DAILY PO 04/15/20 09:00 04/30/20 04:53 Chlorthalidone (Thalitone) 25 mg DAILY PO 04/15/20 09:00 04/19/20 18:30 DC 04/19/20 10:18 Clopidogrel Bisulfate (Plavix) 75 mg QHS PO 04/14/20 21:00 04/29/20 21:04 Coenzyme Q10 (Coenzyme Q10) 50 mg DAILY PO 04/15/20 09:00 04/30/20 04:54 Finasteride (Proscar) 5 mg DAILY PO 04/15/20 09:00 04/29/20 10:30 DC 04/29/20 06:07 Levothyroxine Sodium (Synthroid) 100 mcg DAILY06 PO 04/15/20 06:00 04/30/20 04:55 Losartan Potassium (Cozaar) 50 mg DAILY PO 04/15/20 09:00 04/19/20 14:20 DC 04/19/20 10:19 Metoprolol Succinate (Toprol Xl) 100 mg DAILY PO 04/15/20 09:00 04/30/20 06:16 Fish Oil (Fish Oil) 1,000 mg DAILY PO 04/15/20 09:00 04/25/20 16:19 DC 04/23/20 07:57 Quetiapine Fumarate (SEROquel) 50 mg QHS PO 04/14/20 21:00 04/14/20 16:15 DC Vitamin D (Vitamin D3) 50,000 unit WEEKLY PO 04/21/20 09:00 04/28/20 12:31 Colchicine (Colcrys) 0.6 mg PRN DAILY PRN PO for GOUT pain 04/14/20 15:30 Diclofenac Sodium (Voltaren) 1 aaron PRN QID PRN TP PAIN 04/14/20 15:30 Nitroglycerin (Nitrostat) 0.4 mg PRN Q5MIN PRN SL CHEST PAIN 04/14/20 15:30 Melatonin (Melatonin) 3 mg PRN QHS PRN PO INSOMNIA 04/14/20 15:30 04/29/20 21:04 Clonazepam (KlonoPIN) 0.25 mg BID PO 04/14/20 21:00 04/15/20 15:46 DC 04/15/20 09:12 Clonazepam (KlonoPIN) 0.25 mg QHS PO 04/15/20 21:00 04/17/20 23:01 DC 04/17/20 21:10 Sertraline HCl (Zoloft) 50 mg DAILY PO 04/16/20 09:00 04/20/20 23:59 DC 04/20/20 08:19 Olanzapine (ZyPREXA ZYDIS) 2.5 mg PRN Q2HR PRN PO PSYCHOSIS 04/16/20 13:15 04/29/20 21:04 Quetiapine Fumarate (SEROquel) 12.5 mg TID@0900,1300,1700 PO 04/17/20 09:00 04/20/20 17:08 DC 04/20/20 11:33 Sertraline HCl (Zoloft) 75 mg DAILY PO 04/18/20 09:00 04/18/20 07:37 DC Sertraline HCl (Zoloft) 75 mg DAILY PO 04/18/20 09:00 04/18/20 08:23 DC Sertraline HCl (Zoloft) 75 mg DAILY PO 04/21/20 09:00 04/23/20 09:00 DC 04/23/20 07:57 Quetiapine Fumarate (SEROquel) 12.5 mg 1300,1700 PO 04/20/20 17:15 04/26/20 18:19 DC 04/26/20 16:54 Quetiapine Fumarate (SEROquel) 25 mg DAILY PO 04/21/20 09:00 04/26/20 18:19 DC 04/26/20 08:08 Sertraline HCl (Zoloft) 100 mg DAILY PO 04/24/20 09:00 04/30/20 04:54 Quetiapine Fumarate (SEROquel) 12.5 mg 0600,0900,1300,1700 PO 04/27/20 06:00 04/27/20 07:31 DC Quetiapine Fumarate (SEROquel) 12.5 mg 0600,1300,1700 PO 04/27/20 13:00 04/30/20 04:54 Quetiapine Fumarate (SEROquel) 25 mg DAILY PO 04/27/20 09:00 04/29/20 08:25 I have reviewed the current psychotropics carefully including drug interactions. Risk benefit ratio favors no change other than as noted in my dictated progress note. 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
--- NOTE | 2020-04-30 07:58 | PDOC ---
Exam Note: Miguel Note: This note is a late entry for 04/29/2020 covers elements not covered in my initial note. Subjective: The patient was seen face to face in the evening of 04/29/2020 with Peyton BAY, reviewed the chart. He slept 8 hours previous night. The patient was less sedated today. He remains confused, not aggressive. Review of Systems: No CV, , pulmonary, eye, ENT system symptoms on review. Reliability poor. Mental Status Exam: The patient is oriented to himself. Insight and judgment, recent and remote memory, attention and concentration, fund of knowledge is poor consistent with his diagnosis. He followed me around the unit after I met with him on rounds. Laboratory Data: Reviewed. Impression: Major neurocognitive disorder Alzheimer vascular with delusion, depression, behavioral disturbance. Anxiety disorder unspecified. Impulse control disorder unspecified. Plan: No change from initial note. Assessment: Vital Signs/I&O: Vital Signs Date Time Temp Pulse Resp B/P (MAP) Pulse Ox O2 Delivery O2 Flow Rate FiO2 04/30/20 06:31 97.3 80 18 163/74 (103) 94 04/29/20 14:00 Room Air I & O 04/29/20 04/29/20 04/30/20 15:00 23:00 07:00 Intake Total 360 ml 360 ml Balance 360 ml 360 ml Current Medications: Meds: Current Medications Medications (Trade) Dose Ordered Sig/Afshin Route PRN Reason Start Time Stop Time Status Last Admin Dose Admin Acetaminophen (Tylenol) 650 mg PRN Q6HRS PRN PO MILD PAIN / TEMP > 100.3'F 04/14/20 15:00 04/27/20 11:08 Multi-Ingredient Ointment (Analgesic [place]) 1 aaron PRN QID PRN TP MUSCLE PAIN 04/14/20 15:00 Al Hydroxide/Mg Hydroxide (Mylanta Plus Xs) 15 ml PRN AFTMEALHC PRN PO DYSPEPSIA 04/14/20 15:00 Magnesium Hydroxide (Milk Of Magnesia) 2,400 mg PRN QHS PRN PO CONSTIPATION 04/14/20 15:00 Allopurinol (Zyloprim) 100 mg HS PO 04/14/20 21:00 04/29/20 21:04 Amlodipine Besylate (Norvasc) 10 mg DAILY PO 04/15/20 09:00 04/19/20 18:30 DC 04/19/20 10:18 Aripiprazole (Abilify) 2 mg DAILY PO 04/15/20 09:00 04/16/20 17:08 DC 04/16/20 10:00 Aspirin (Aspirin Chewable) 81 mg DAILYWBKFT PO 04/15/20 08:00 04/30/20 04:54 Azelastine HCl (Astelin) 2 spray BID NS 04/14/20 21:00 04/30/20 04:55 Bupropion HCl (Wellbutrin Xl) 150 mg DAILY PO 04/15/20 09:00 04/30/20 04:53 Chlorthalidone (Thalitone) 25 mg DAILY PO 04/15/20 09:00 04/19/20 18:30 DC 04/19/20 10:18 Clopidogrel Bisulfate (Plavix) 75 mg QHS PO 04/14/20 21:00 04/29/20 21:04 Coenzyme Q10 (Coenzyme Q10) 50 mg DAILY PO 04/15/20 09:00 04/30/20 04:54 Finasteride (Proscar) 5 mg DAILY PO 04/15/20 09:00 04/29/20 10:30 DC 04/29/20 06:07 Levothyroxine Sodium (Synthroid) 100 mcg DAILY06 PO 04/15/20 06:00 04/30/20 04:55 Losartan Potassium (Cozaar) 50 mg DAILY PO 04/15/20 09:00 04/19/20 14:20 DC 04/19/20 10:19 Metoprolol Succinate (Toprol Xl) 100 mg DAILY PO 04/15/20 09:00 04/30/20 06:16 Fish Oil (Fish Oil) 1,000 mg DAILY PO 04/15/20 09:00 04/25/20 16:19 DC 04/23/20 07:57 Quetiapine Fumarate (SEROquel) 50 mg QHS PO 04/14/20 21:00 04/14/20 16:15 DC Vitamin D (Vitamin D3) 50,000 unit WEEKLY PO 04/21/20 09:00 04/28/20 12:31 Colchicine (Colcrys) 0.6 mg PRN DAILY PRN PO for GOUT pain 04/14/20 15:30 Diclofenac Sodium (Voltaren) 1 aaron PRN QID PRN TP PAIN 04/14/20 15:30 Nitroglycerin (Nitrostat) 0.4 mg PRN Q5MIN PRN SL CHEST PAIN 04/14/20 15:30 Melatonin (Melatonin) 3 mg PRN QHS PRN PO INSOMNIA 04/14/20 15:30 04/29/20 21:04 Clonazepam (KlonoPIN) 0.25 mg BID PO 04/14/20 21:00 04/15/20 15:46 DC 04/15/20 09:12 Clonazepam (KlonoPIN) 0.25 mg QHS PO 04/15/20 21:00 04/17/20 23:01 DC 04/17/20 21:10 Sertraline HCl (Zoloft) 50 mg DAILY PO 04/16/20 09:00 04/20/20 23:59 DC 04/20/20 08:19 Olanzapine (ZyPREXA ZYDIS) 2.5 mg PRN Q2HR PRN PO PSYCHOSIS 04/16/20 13:15 04/29/20 21:04 Quetiapine Fumarate (SEROquel) 12.5 mg TID@0900,1300,1700 PO 04/17/20 09:00 04/20/20 17:08 DC 04/20/20 11:33 Sertraline HCl (Zoloft) 75 mg DAILY PO 04/18/20 09:00 04/18/20 07:37 DC Sertraline HCl (Zoloft) 75 mg DAILY PO 04/18/20 09:00 04/18/20 08:23 DC Sertraline HCl (Zoloft) 75 mg DAILY PO 04/21/20 09:00 04/23/20 09:00 DC 04/23/20 07:57 Quetiapine Fumarate (SEROquel) 12.5 mg 1300,1700 PO 04/20/20 17:15 04/26/20 18:19 DC 04/26/20 16:54 Quetiapine Fumarate (SEROquel) 25 mg DAILY PO 04/21/20 09:00 04/26/20 18:19 DC 04/26/20 08:08 Sertraline HCl (Zoloft) 100 mg DAILY PO 04/24/20 09:00 04/30/20 04:54 Quetiapine Fumarate (SEROquel) 12.5 mg 0600,0900,1300,1700 PO 04/27/20 06:00 04/27/20 07:31 DC Quetiapine Fumarate (SEROquel) 12.5 mg 0600,1300,1700 PO 04/27/20 13:00 04/30/20 04:54 Quetiapine Fumarate (SEROquel) 25 mg DAILY PO 04/27/20 09:00 04/29/20 08:25 I have reviewed the current psychotropics carefully including drug interactions. Risk benefit ratio favors no change other than as noted in my dictated progress note. 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
[2020-04-30 10:59] LABS: BASO % 1 % (0-3); EOS # 0.2 x10^3/uL (0.0-0.7); EOS % 2 % (0-3); HEMATOCRIT 34.5 % (39.0-53.0); HEMOGLOBIN 11.3 g/dL (13.0-17.5); LYMPH # 1.1 x10^3/uL (1.0-4.8); LYMPH % 16 % (24-48); MEAN CORPUSCULAR HEMOGLOBIN 33 pg (25-35); MEAN CORPUSCULAR HGB CONC 33 g/dL (31-37); MEAN CORPUSCULAR VOLUME 102 fL (79-100); MONO # 0.6 x10^3/uL (0.0-1.1); MONO % 8 % (0-9); NEUT # 5.1 x10^3uL (1.8-7.7); NEUT % 73 % (31-73); PLATELET COUNT 201 x10^3/uL (140-400); RED BLOOD COUNT 3.39 x10^6/uL (4.30-5.70); RED CELL DISTRIBUTION WIDTH 14.5 % (11.5-14.5); WHITE BLOOD COUNT 6.9 x10^3/uL (4.0-11.0)
[2020-04-30 11:26] LABS: ALBUMIN 3.2 g/dL (3.4-5.0); ALBUMIN/GLOBULIN RATIO 0.7 (1.0-1.7); CALCIUM 8.6 mg/dL (8.5-10.1); GFR 32.1; POTASSIUM 3.5 mmol/L (3.5-5.1); TOTAL BILIRUBIN 0.2 mg/dL (0.2-1.0); TOTAL PROTEIN 7.5 g/dL (6.4-8.2)
[2020-04-30 15:58] VITALS: BP 153/77
[2020-04-30] MEDS: ALLOPURINOL 100 MG TABLET. PO SCH (20:38)
[2020-04-30] MEDS: CLOPIDOGREL BISULFATE 75 MG TABLET PO SCH (20:38)
[2020-04-30] MEDS: MELATONIN 3 MG TABLET PO PRN (20:41)
--- NOTE | 2020-04-30 21:07 | PDOC ---
Exam Note: Miguel Note: Please also refer to the separate dictated note~for this date of service dictated separately.~Patient seen individually. Discussed the patient with Nursing staff reviewed the chart.~Reviewed interim history and current functioning. Reviewed vital signs,~Labs/ Radiology~and current medications noted below. Continue current treatment with the changes noted in the dictated addendum note Assessment: Vital Signs/I&O: Vital Signs Date Time Temp Pulse Resp B/P (MAP) Pulse Ox O2 Delivery O2 Flow Rate FiO2 04/30/20 15:58 97.3 74 16 153/77 (102) 99 04/29/20 14:00 Room Air I & O 04/29/20 04/29/20 04/30/20 15:00 23:00 07:00 Intake Total 360 ml 360 ml Balance 360 ml 360 ml Labs: Laboratory Tests Test 04/30/20 09:55 White Blood Count 6.9 x10^3/uL (4.0-11.0) Red Blood Count 3.39 x10^6/uL (4.30-5.70) L Hemoglobin 11.3 g/dL (13.0-17.5) L Hematocrit 34.5 % (39.0-53.0) L Mean Corpuscular Volume 102 fL (79-100) H Mean Corpuscular Hemoglobin 33 pg (25-35) Mean Corpuscular Hemoglobin Concent 33 g/dL (31-37) Red Cell Distribution Width 14.5 % (11.5-14.5) Platelet Count 201 x10^3/uL (140-400) Neutrophils (%) (Auto) 73 % (31-73) Lymphocytes (%) (Auto) 16 % (24-48) L Monocytes (%) (Auto) 8 % (0-9) Eosinophils (%) (Auto) 2 % (0-3) Basophils (%) (Auto) 1 % (0-3) Neutrophils # (Auto) 5.1 x10^3uL (1.8-7.7) Lymphocytes # (Auto) 1.1 x10^3/uL (1.0-4.8) Monocytes # (Auto) 0.6 x10^3/uL (0.0-1.1) Eosinophils # (Auto) 0.2 x10^3/uL (0.0-0.7) Basophils # (Auto) 0.0 x10^3/uL (0.0-0.2) Sodium Level 139 mmol/L (136-145) Potassium Level 3.5 mmol/L (3.5-5.1) Chloride Level 104 mmol/L (98-107) Carbon Dioxide Level 29 mmol/L (21-32) Anion Gap 6 (6-14) Blood Urea Nitrogen 34 mg/dL (8-26) H Creatinine 2.0 mg/dL (0.7-1.3) H Estimated GFR (Cockcroft-Gault) 32.1 BUN/Creatinine Ratio 17 (6-20) Glucose Level 164 mg/dL (70-99) H Calcium Level 8.6 mg/dL (8.5-10.1) Total Bilirubin 0.2 mg/dL (0.2-1.0) Aspartate Amino Transferase (AST) 25 U/L (15-37) Alanine Aminotransferase (ALT) 33 U/L (16-63) Alkaline Phosphatase 79 U/L (46-116) Total Protein 7.5 g/dL (6.4-8.2) Albumin 3.2 g/dL (3.4-5.0) L Albumin/Globulin Ratio 0.7 (1.0-1.7) L Current Medications: Meds: Laboratory Tests Test 04/30/20 09:55 White Blood Count 6.9 x10^3/uL Red Blood Count 3.39 x10^6/uL Hemoglobin 11.3 g/dL Hematocrit 34.5 % Mean Corpuscular Volume 102 fL Mean Corpuscular Hemoglobin 33 pg Mean Corpuscular Hemoglobin Concent 33 g/dL Red Cell Distribution Width 14.5 % Platelet Count 201 x10^3/uL Neutrophils (%) (Auto) 73 % Lymphocytes (%) (Auto) 16 % Monocytes (%) (Auto) 8 % Eosinophils (%) (Auto) 2 % Basophils (%) (Auto) 1 % Neutrophils # (Auto) 5.1 x10^3uL Lymphocytes # (Auto) 1.1 x10^3/uL Monocytes # (Auto) 0.6 x10^3/uL Eosinophils # (Auto) 0.2 x10^3/uL Basophils # (Auto) 0.0 x10^3/uL Sodium Level 139 mmol/L Potassium Level 3.5 mmol/L Chloride Level 104 mmol/L Carbon Dioxide Level 29 mmol/L Anion Gap 6 Blood Urea Nitrogen 34 mg/dL Creatinine 2.0 mg/dL Estimated GFR (Cockcroft-Gault) 32.1 BUN/Creatinine Ratio 17 Glucose Level 164 mg/dL Calcium Level 8.6 mg/dL Total Bilirubin 0.2 mg/dL Aspartate Amino Transf (AST/SGOT) 25 U/L Alanine Aminotransferase (ALT/SGPT) 33 U/L Alkaline Phosphatase 79 U/L Total Protein 7.5 g/dL Albumin 3.2 g/dL Albumin/Globulin Ratio 0.7 Current Medications Medications (Trade) Dose Ordered Sig/Afshin Route PRN Reason Start Time Stop Time Status Last Admin Dose Admin Acetaminophen (Tylenol) 650 mg PRN Q6HRS PRN PO MILD PAIN / TEMP > 100.3'F 04/14/20 15:00 04/27/20 11:08 Multi-Ingredient Ointment (Analgesic [place]) 1 aaron PRN QID PRN TP MUSCLE PAIN 04/14/20 15:00 Al Hydroxide/Mg Hydroxide (Mylanta Plus Xs) 15 ml PRN AFTMEALHC PRN PO DYSPEPSIA 04/14/20 15:00 Magnesium Hydroxide (Milk Of Magnesia) 2,400 mg PRN QHS PRN PO CONSTIPATION 04/14/20 15:00 Allopurinol (Zyloprim) 100 mg HS PO 04/14/20 21:00 04/30/20 20:38 Amlodipine Besylate (Norvasc) 10 mg DAILY PO 04/15/20 09:00 04/19/20 18:30 DC 04/19/20 10:18 Aripiprazole (Abilify) 2 mg DAILY PO 04/15/20 09:00 04/16/20 17:08 DC 04/16/20 10:00 Aspirin (Aspirin Chewable) 81 mg DAILYWBKFT PO 04/15/20 08:00 04/30/20 04:54 Azelastine HCl (Astelin) 2 spray BID NS 04/14/20 21:00 04/30/20 20:48 Bupropion HCl (Wellbutrin Xl) 150 mg DAILY PO 04/15/20 09:00 04/30/20 04:53 Chlorthalidone (Thalitone) 25 mg DAILY PO 04/15/20 09:00 04/19/20 18:30 DC 04/19/20 10:18 Clopidogrel Bisulfate (Plavix) 75 mg QHS PO 04/14/20 21:00 04/30/20 20:38 Coenzyme Q10 (Coenzyme Q10) 50 mg DAILY PO 04/15/20 09:00 04/30/20 04:54 Finasteride (Proscar) 5 mg DAILY PO 04/15/20 09:00 04/29/20 10:30 DC 04/29/20 06:07 Levothyroxine Sodium (Synthroid) 100 mcg DAILY06 PO 04/15/20 06:00 04/30/20 04:55 Losartan Potassium (Cozaar) 50 mg DAILY PO 04/15/20 09:00 04/19/20 14:20 DC 04/19/20 10:19 Metoprolol Succinate (Toprol Xl) 100 mg DAILY PO 04/15/20 09:00 04/30/20 06:16 Fish Oil (Fish Oil) 1,000 mg DAILY PO 04/15/20 09:00 04/25/20 16:19 DC 04/23/20 07:57 Quetiapine Fumarate (SEROquel) 50 mg QHS PO 04/14/20 21:00 04/14/20 16:15 DC Vitamin D (Vitamin D3) 50,000 unit WEEKLY PO 04/21/20 09:00 04/28/20 12:31 Colchicine (Colcrys) 0.6 mg PRN DAILY PRN PO for GOUT pain 04/14/20 15:30 Diclofenac Sodium (Voltaren) 1 aaron PRN QID PRN TP PAIN 04/14/20 15:30 Nitroglycerin (Nitrostat) 0.4 mg PRN Q5MIN PRN SL CHEST PAIN 04/14/20 15:30 Melatonin (Melatonin) 3 mg PRN QHS PRN PO INSOMNIA 04/14/20 15:30 04/30/20 20:41 Clonazepam (KlonoPIN) 0.25 mg BID PO 04/14/20 21:00 04/15/20 15:46 DC 04/15/20 09:12 Clonazepam (KlonoPIN) 0.25 mg QHS PO 04/15/20 21:00 04/17/20 23:01 DC 04/17/20 21:10 Sertraline HCl (Zoloft) 50 mg DAILY PO 04/16/20 09:00 04/20/20 23:59 DC 04/20/20 08:19 Olanzapine (ZyPREXA ZYDIS) 2.5 mg PRN Q2HR PRN PO PSYCHOSIS 04/16/20 13:15 04/30/20 20:41 Quetiapine Fumarate (SEROquel) 12.5 mg TID@0900,1300,1700 PO 04/17/20 09:00 04/20/20 17:08 DC 04/20/20 11:33 Sertraline HCl (Zoloft) 75 mg DAILY PO 04/18/20 09:00 04/18/20 07:37 DC Sertraline HCl (Zoloft) 75 mg DAILY PO 04/18/20 09:00 04/18/20 08:23 DC Sertraline HCl (Zoloft) 75 mg DAILY PO 04/21/20 09:00 04/23/20 09:00 DC 04/23/20 07:57 Quetiapine Fumarate (SEROquel) 12.5 mg 1300,1700 PO 04/20/20 17:15 04/26/20 18:19 DC 04/26/20 16:54 Quetiapine Fumarate (SEROquel) 25 mg DAILY PO 04/21/20 09:00 04/26/20 18:19 DC 04/26/20 08:08 Sertraline HCl (Zoloft) 100 mg DAILY PO 04/24/20 09:00 04/30/20 04:54 Quetiapine Fumarate (SEROquel) 12.5 mg 0600,0900,1300,1700 PO 04/27/20 06:00 04/27/20 07:31 DC Quetiapine Fumarate (SEROquel) 12.5 mg 0600,1300,1700 PO 04/27/20 13:00 04/30/20 17:21 Quetiapine Fumarate (SEROquel) 25 mg DAILY PO 04/27/20 09:00 04/30/20 08:56 I have reviewed the current psychotropics carefully including drug interactions. Risk benefit ratio favors no change other than as noted in my dictated progress note. Diagnosis: Problems: (1) Major neurocognitive disorder (2) Impulse control disorder, unspecified (3) Anxiety disorder, unspecified (4) Dementia, vascular, with depression (5) Dementia, vascular, with delusions (6) Dementia in Alzheimer's disease with depression (7) Dementia in Alzheimer's disease with delusions (8) Dementia of the Alzheimer's type with early onset with behavioral disturbance RENITA SAGASTUME MD Apr 30, 2020 21:07
[2020-05-01] MEDS: LEVOTHYROXINE 100 MCG TABLET PO SCH (04:59)
[2020-05-01] MEDS: QUEtiapine 25 MG TABLET. PO SCH ×4 (05:00→17:32)
[2020-05-01 06:09] VITALS: BP 162/82
--- NOTE | 2020-05-01 09:17 | PDOC ---
Exam Note: Miguel Note: This note is a late entry for 04/30/2020 covers elements not covered in my initial note. Subjective: The patient was seen on telehealth rounds in the evening of 04/30/2020 with Ryland BAY, reviewed the chart. He slept 6-3/4 hours previous night. The patient has been confused, but calm and wandering around the unit, not agitated or aggressive. Review of Systems: No CV, , pulmonary, eye, ENT system symptoms on review. Reliability poor. Mental Status Exam: The patient is oriented to himself. He is pleasant, smiling as I met with him. Insight and judgment, recent and remote memory, attention and concentration, fund of knowledge is poor consistent with his diagnosis. 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 He thought he was working last year. No clear psychotic symptoms. Laboratory Data: Reviewed. Impression: Major neurocognitive disorder Alzheimer vascular with delusion, depression, behavioral disturbance. Anxiety disorder unspecified. Impulse control disorder unspecified. Plan: No change from initial note. Assessment: Vital Signs/I&O: Vital Signs Date Time Temp Pulse Resp B/P (MAP) Pulse Ox O2 Delivery O2 Flow Rate FiO2 05/01/20 06:09 97.7 99 18 162/82 (108) 100 04/29/20 14:00 Room Air I & O 04/30/20 04/30/20 05/01/20 15:00 23:00 07:00 Intake Total 840 ml 480 ml 120 ml Balance 840 ml 480 ml 120 ml Labs: Laboratory Tests Test 04/30/20 09:55 White Blood Count 6.9 x10^3/uL (4.0-11.0) Red Blood Count 3.39 x10^6/uL (4.30-5.70) L Hemoglobin 11.3 g/dL (13.0-17.5) L Hematocrit 34.5 % (39.0-53.0) L Mean Corpuscular Volume 102 fL (79-100) H Mean Corpuscular Hemoglobin 33 pg (25-35) Mean Corpuscular Hemoglobin Concent 33 g/dL (31-37) Red Cell Distribution Width 14.5 % (11.5-14.5) Platelet Count 201 x10^3/uL (140-400) Neutrophils (%) (Auto) 73 % (31-73) Lymphocytes (%) (Auto) 16 % (24-48) L Monocytes (%) (Auto) 8 % (0-9) Eosinophils (%) (Auto) 2 % (0-3) Basophils (%) (Auto) 1 % (0-3) Neutrophils # (Auto) 5.1 x10^3uL (1.8-7.7) Lymphocytes # (Auto) 1.1 x10^3/uL (1.0-4.8) Monocytes # (Auto) 0.6 x10^3/uL (0.0-1.1) Eosinophils # (Auto) 0.2 x10^3/uL (0.0-0.7) Basophils # (Auto) 0.0 x10^3/uL (0.0-0.2) Sodium Level 139 mmol/L (136-145) Potassium Level 3.5 mmol/L (3.5-5.1) Chloride Level 104 mmol/L (98-107) Carbon Dioxide Level 29 mmol/L (21-32) Anion Gap 6 (6-14) Blood Urea Nitrogen 34 mg/dL (8-26) H Creatinine 2.0 mg/dL (0.7-1.3) H Estimated GFR (Cockcroft-Gault) 32.1 BUN/Creatinine Ratio 17 (6-20) Glucose Level 164 mg/dL (70-99) H Calcium Level 8.6 mg/dL (8.5-10.1) Total Bilirubin 0.2 mg/dL (0.2-1.0) Aspartate Amino Transferase (AST) 25 U/L (15-37) Alanine Aminotransferase (ALT) 33 U/L (16-63) Alkaline Phosphatase 79 U/L (46-116) Total Protein 7.5 g/dL (6.4-8.2) Albumin 3.2 g/dL (3.4-5.0) L Albumin/Globulin Ratio 0.7 (1.0-1.7) L Current Medications: Meds: Laboratory Tests Test 04/30/20 09:55 White Blood Count 6.9 x10^3/uL Red Blood Count 3.39 x10^6/uL Hemoglobin 11.3 g/dL Hematocrit 34.5 % Mean Corpuscular Volume 102 fL Mean Corpuscular Hemoglobin 33 pg Mean Corpuscular Hemoglobin Concent 33 g/dL Red Cell Distribution Width 14.5 % Platelet Count 201 x10^3/uL Neutrophils (%) (Auto) 73 % Lymphocytes (%) (Auto) 16 % Monocytes (%) (Auto) 8 % Eosinophils (%) (Auto) 2 % Basophils (%) (Auto) 1 % Neutrophils # (Auto) 5.1 x10^3uL Lymphocytes # (Auto) 1.1 x10^3/uL Monocytes # (Auto) 0.6 x10^3/uL Eosinophils # (Auto) 0.2 x10^3/uL Basophils # (Auto) 0.0 x10^3/uL Sodium Level 139 mmol/L Potassium Level 3.5 mmol/L Chloride Level 104 mmol/L Carbon Dioxide Level 29 mmol/L Anion Gap 6 Blood Urea Nitrogen 34 mg/dL Creatinine 2.0 mg/dL Estimated GFR (Cockcroft-Gault) 32.1 BUN/Creatinine Ratio 17 Glucose Level 164 mg/dL Calcium Level 8.6 mg/dL Total Bilirubin 0.2 mg/dL Aspartate Amino Transf (AST/SGOT) 25 U/L Alanine Aminotransferase (ALT/SGPT) 33 U/L Alkaline Phosphatase 79 U/L Total Protein 7.5 g/dL Albumin 3.2 g/dL Albumin/Globulin Ratio 0.7 Current Medications Medications (Trade) Dose Ordered Sig/Afshin Route PRN Reason Start Time Stop Time Status Last Admin Dose Admin Acetaminophen (Tylenol) 650 mg PRN Q6HRS PRN PO MILD PAIN / TEMP > 100.3'F 04/14/20 15:00 04/27/20 11:08 Multi-Ingredient Ointment (Analgesic [place]) 1 aaron PRN QID PRN TP MUSCLE PAIN 04/14/20 15:00 Al Hydroxide/Mg Hydroxide (Mylanta Plus Xs) 15 ml PRN AFTMEALHC PRN PO DYSPEPSIA 04/14/20 15:00 Magnesium Hydroxide (Milk Of Magnesia) 2,400 mg PRN QHS PRN PO CONSTIPATION 04/14/20 15:00 Allopurinol (Zyloprim) 100 mg HS PO 04/14/20 21:00 2/6/21 20:38 Amlodipine Besylate (Norvasc) 10 mg DAILY PO 04/15/20 09:00 04/19/20 18:30 DC 04/19/20 10:18 Aripiprazole (Abilify) 2 mg DAILY PO 04/15/20 09:00 04/16/20 17:08 DC 04/16/20 10:00 Aspirin (Aspirin Chewable) 81 mg DAILYWBKFT PO 04/15/20 08:00 04/30/20 04:54 Azelastine HCl (Astelin) 2 spray BID NS 04/14/20 21:00 04/30/20 20:48 Bupropion HCl (Wellbutrin Xl) 150 mg DAILY PO 04/15/20 09:00 04/30/20 04:53 Chlorthalidone (Thalitone) 25 mg DAILY PO 04/15/20 09:00 04/19/20 18:30 DC 04/19/20 10:18 Clopidogrel Bisulfate (Plavix) 75 mg QHS PO 04/14/20 21:00 04/30/20 20:38 Coenzyme Q10 (Coenzyme Q10) 50 mg DAILY PO 04/15/20 09:00 04/30/20 04:54 Finasteride (Proscar) 5 mg DAILY PO 04/15/20 09:00 04/29/20 10:30 DC 04/29/20 06:07 Levothyroxine Sodium (Synthroid) 100 mcg DAILY06 PO 04/15/20 06:00 05/01/20 04:59 Losartan Potassium (Cozaar) 50 mg DAILY PO 04/15/20 09:00 04/19/20 14:20 DC 04/19/20 10:19 Metoprolol Succinate (Toprol Xl) 100 mg DAILY PO 04/15/20 09:00 04/30/20 06:16 Fish Oil (Fish Oil) 1,000 mg DAILY PO 04/15/20 09:00 04/25/20 16:19 DC 04/23/20 07:57 Quetiapine Fumarate (SEROquel) 50 mg QHS PO 04/14/20 21:00 04/14/20 16:15 DC Vitamin D (Vitamin D3) 50,000 unit WEEKLY PO 04/21/20 09:00 04/28/20 12:31 Colchicine (Colcrys) 0.6 mg PRN DAILY PRN PO for GOUT pain 04/14/20 15:30 Diclofenac Sodium (Voltaren) 1 aaron PRN QID PRN TP PAIN 04/14/20 15:30 Nitroglycerin (Nitrostat) 0.4 mg PRN Q5MIN PRN SL CHEST PAIN 04/14/20 15:30 Melatonin (Melatonin) 3 mg PRN QHS PRN PO INSOMNIA 04/14/20 15:30 04/30/20 20:41 Clonazepam (KlonoPIN) 0.25 mg BID PO 04/14/20 21:00 04/15/20 15:46 DC 04/15/20 09:12 Clonazepam (KlonoPIN) 0.25 mg QHS PO 04/15/20 21:00 04/17/20 23:01 DC 04/17/20 21:10 Sertraline HCl (Zoloft) 50 mg DAILY PO 04/16/20 09:00 04/20/20 23:59 DC 04/20/20 08:19 Olanzapine (ZyPREXA ZYDIS) 2.5 mg PRN Q2HR PRN PO PSYCHOSIS 04/16/20 13:15 04/30/20 20:41 Quetiapine Fumarate (SEROquel) 12.5 mg TID@0900,1300,1700 PO 04/17/20 09:00 04/20/20 17:08 DC 04/20/20 11:33 Sertraline HCl (Zoloft) 75 mg DAILY PO 04/18/20 09:00 04/18/20 07:37 DC Sertraline HCl (Zoloft) 75 mg DAILY PO 04/18/20 09:00 04/18/20 08:23 DC Sertraline HCl (Zoloft) 75 mg DAILY PO 04/21/20 09:00 04/23/20 09:00 DC 04/23/20 07:57 Quetiapine Fumarate (SEROquel) 12.5 mg 1300,1700 PO 04/20/20 17:15 04/26/20 18:19 DC 04/26/20 16:54 Quetiapine Fumarate (SEROquel) 25 mg DAILY PO 04/21/20 09:00 04/26/20 18:19 DC 04/26/20 08:08 Sertraline HCl (Zoloft) 100 mg DAILY PO 04/24/20 09:00 04/30/20 04:54 Quetiapine Fumarate (SEROquel) 12.5 mg 0600,0900,1300,1700 PO 04/27/20 06:00 04/27/20 07:31 DC Quetiapine Fumarate (SEROquel) 12.5 mg 0600,1300,1700 PO 04/27/20 13:00 05/01/20 05:00 Quetiapine Fumarate (SEROquel) 25 mg DAILY PO 04/27/20 09:00 04/30/20 08:56 I have reviewed the current psychotropics carefully including drug interactions. Risk benefit ratio favors no change other than as noted in my dictated progress note. Diagnosis: Problems: (1) Major neurocognitive disorder (2) Impulse control disorder, unspecified (3) Anxiety disorder, unspecified (4) Dementia, vascular, with depression (5) Dementia, vascular, with delusions (6) Dementia in Alzheimer's disease with depression (7) Dementia in Alzheimer's disease with delusions (8) Dementia of the Alzheimer's type with early onset with behavioral disturbance RENITA SAGASTUME MD May 01, 2020 09:17
[2020-05-01] MEDS: buPROPion XL 150 MG TAB.ER.24H PO SCH (09:57)
[2020-05-01] MEDS: SERTRALINE 100 MG TABLET. PO SCH (09:58)
[2020-05-01] MEDS: METOPROLOL SUCC 24HR ER 50 MG TAB.ER.24H. PO SCH (09:58)
[2020-05-01] MEDS: AZELASTINE NASAL SPRAY 30ML BOTTLE. NS SCH ×2 (09:58→20:23)
[2020-05-01] MEDS: UBIDECARENONE 50 MG CAPSULE. PO SCH (09:58)
[2020-05-01] MEDS: ASPIRIN CHEWABLE 81 MG TABLET. PO SCH (09:58)
[2020-05-01 16:13] VITALS: BP 118/74
[2020-05-01] MEDS: CLOPIDOGREL BISULFATE 75 MG TABLET PO SCH (20:21)
[2020-05-01] MEDS: ALLOPURINOL 100 MG TABLET. PO SCH (20:21)
--- NOTE | 2020-05-01 21:07 | PDOC ---
Exam Note: Miguel Note: Please also refer to the separate dictated note~for this date of service dictated separately.~Patient seen individually. Discussed the patient with Nursing staff reviewed the chart.~Reviewed interim history and current functioning. Reviewed vital signs,~Labs/ Radiology~and current medications noted below. Continue current treatment with the changes noted in the dictated addendum note Assessment: Vital Signs/I&O: Vital Signs Date Time Temp Pulse Resp B/P (MAP) Pulse Ox O2 Delivery O2 Flow Rate FiO2 05/01/20 16:13 97.2 80 18 118/74 (89) 98 Room Air I & O 04/30/20 04/30/20 05/01/20 15:00 23:00 07:00 Intake Total 840 ml 480 ml 120 ml Balance 840 ml 480 ml 120 ml Current Medications: Meds: Current Medications Medications (Trade) Dose Ordered Sig/Afshin Route PRN Reason Start Time Stop Time Status Last Admin Dose Admin Acetaminophen (Tylenol) 650 mg PRN Q6HRS PRN PO MILD PAIN / TEMP > 100.3'F 04/14/20 15:00 04/27/20 11:08 Multi-Ingredient Ointment (Analgesic [place]) 1 aaron PRN QID PRN TP MUSCLE PAIN 04/14/20 15:00 Al Hydroxide/Mg Hydroxide (Mylanta Plus Xs) 15 ml PRN AFTMEALHC PRN PO DYSPEPSIA 04/14/20 15:00 Magnesium Hydroxide (Milk Of Magnesia) 2,400 mg PRN QHS PRN PO CONSTIPATION 04/14/20 15:00 Allopurinol (Zyloprim) 100 mg HS PO 04/14/20 21:00 05/01/20 20:21 Amlodipine Besylate (Norvasc) 10 mg DAILY PO 04/15/20 09:00 04/19/20 18:30 DC 04/19/20 10:18 Aripiprazole (Abilify) 2 mg DAILY PO 04/15/20 09:00 04/16/20 17:08 DC 04/16/20 10:00 Aspirin (Aspirin Chewable) 81 mg DAILYWBKFT PO 04/15/20 08:00 05/01/20 09:58 Azelastine HCl (Astelin) 2 spray BID NS 04/14/20 21:00 05/01/20 20:23 Bupropion HCl (Wellbutrin Xl) 150 mg DAILY PO 04/15/20 09:00 05/01/20 09:57 Chlorthalidone (Thalitone) 25 mg DAILY PO 04/15/20 09:00 04/19/20 18:30 DC 04/19/20 10:18 Clopidogrel Bisulfate (Plavix) 75 mg QHS PO 04/14/20 21:00 05/01/20 20:21 Coenzyme Q10 (Coenzyme Q10) 50 mg DAILY PO 04/15/20 09:00 05/01/20 09:58 Finasteride (Proscar) 5 mg DAILY PO 04/15/20 09:00 04/29/20 10:30 DC 04/29/20 06:07 Levothyroxine Sodium (Synthroid) 100 mcg DAILY06 PO 04/15/20 06:00 05/01/20 04:59 Losartan Potassium (Cozaar) 50 mg DAILY PO 04/15/20 09:00 04/19/20 14:20 DC 04/19/20 10:19 Metoprolol Succinate (Toprol Xl) 100 mg DAILY PO 04/15/20 09:00 05/01/20 09:58 Fish Oil (Fish Oil) 1,000 mg DAILY PO 04/15/20 09:00 04/25/20 16:19 DC 04/23/20 07:57 Quetiapine Fumarate (SEROquel) 50 mg QHS PO 04/14/20 21:00 04/14/20 16:15 DC Vitamin D (Vitamin D3) 50,000 unit WEEKLY PO 04/21/20 09:00 04/28/20 12:31 Colchicine (Colcrys) 0.6 mg PRN DAILY PRN PO for GOUT pain 04/14/20 15:30 Diclofenac Sodium (Voltaren) 1 aaron PRN QID PRN TP PAIN 04/14/20 15:30 Nitroglycerin (Nitrostat) 0.4 mg PRN Q5MIN PRN SL CHEST PAIN 04/14/20 15:30 Melatonin (Melatonin) 3 mg PRN QHS PRN PO INSOMNIA 04/14/20 15:30 04/30/20 20:41 Clonazepam (KlonoPIN) 0.25 mg BID PO 04/14/20 21:00 04/15/20 15:46 DC 04/15/20 09:12 Clonazepam (KlonoPIN) 0.25 mg QHS PO 04/15/20 21:00 04/17/20 23:01 DC 04/17/20 21:10 Sertraline HCl (Zoloft) 50 mg DAILY PO 04/16/20 09:00 04/20/20 23:59 DC 04/20/20 08:19 Olanzapine (ZyPREXA ZYDIS) 2.5 mg PRN Q2HR PRN PO PSYCHOSIS 04/16/20 13:15 04/30/20 20:41 Quetiapine Fumarate (SEROquel) 12.5 mg TID@0900,1300,1700 PO 04/17/20 09:00 04/20/20 17:08 DC 04/20/20 11:33 Sertraline HCl (Zoloft) 75 mg DAILY PO 04/18/20 09:00 04/18/20 07:37 DC Sertraline HCl (Zoloft) 75 mg DAILY PO 04/18/20 09:00 04/18/20 08:23 DC Sertraline HCl (Zoloft) 75 mg DAILY PO 04/21/20 09:00 04/23/20 09:00 DC 04/23/20 07:57 Quetiapine Fumarate (SEROquel) 12.5 mg 1300,1700 PO 04/20/20 17:15 04/26/20 18:19 DC 04/26/20 16:54 Quetiapine Fumarate (SEROquel) 25 mg DAILY PO 04/21/20 09:00 04/26/20 18:19 DC 04/26/20 08:08 Sertraline HCl (Zoloft) 100 mg DAILY PO 04/24/20 09:00 05/01/20 09:58 Quetiapine Fumarate (SEROquel) 12.5 mg 0600,0900,1300,1700 PO 04/27/20 06:00 04/27/20 07:31 DC Quetiapine Fumarate (SEROquel) 12.5 mg 0600,1300,1700 PO 04/27/20 13:00 05/01/20 17:32 Quetiapine Fumarate (SEROquel) 25 mg DAILY PO 04/27/20 09:00 05/01/20 09:57 I have reviewed the current psychotropics carefully including drug interactions. Risk benefit ratio favors no change other than as noted in my dictated progress note. Diagnosis: Problems: (1) Major neurocognitive disorder (2) Impulse control disorder, unspecified (3) Anxiety disorder, unspecified (4) Dementia, vascular, with depression (5) Dementia, vascular, with delusions (6) Dementia in Alzheimer's disease with depression (7) Dementia in Alzheimer's disease with delusions (8) Dementia of the Alzheimer's type with early onset with behavioral disturbance RENITA SAGASTUME MD May 01, 2020 21:07
[2020-05-02] MEDS: QUEtiapine 25 MG TABLET. PO SCH ×4 (05:30→17:07)
[2020-05-02] MEDS: LEVOTHYROXINE 100 MCG TABLET PO SCH (05:32)
[2020-05-02 06:31] VITALS: BP 148/92
[2020-05-02] MEDS: AZELASTINE NASAL SPRAY 30ML BOTTLE. NS SCH ×2 (09:00→20:29)
[2020-05-02] MEDS: ASPIRIN CHEWABLE 81 MG TABLET. PO SCH (09:32)
[2020-05-02] MEDS: UBIDECARENONE 50 MG CAPSULE. PO SCH (09:32)
[2020-05-02] MEDS: SERTRALINE 100 MG TABLET. PO SCH (09:33)
[2020-05-02] MEDS: buPROPion XL 150 MG TAB.ER.24H PO SCH (09:33)
[2020-05-02] MEDS: METOPROLOL SUCC 24HR ER 50 MG TAB.ER.24H. PO SCH (09:33)
[2020-05-02 15:21] VITALS: BP 120/74
[2020-05-02] MEDS: CLOPIDOGREL BISULFATE 75 MG TABLET PO SCH (20:25)
[2020-05-02] MEDS: ALLOPURINOL 100 MG TABLET. PO SCH (20:29)
--- NOTE | 2020-05-02 21:18 | PDOC ---
Exam Note: Miguel Note: This note is a late entry for 05/01/2020 covers elements not covered in my initial note. Subjective: The patient was seen on telehealth rounds in the evening of 05/01/2020 with Ryland BAY, reviewed the chart. He slept 5-3/4 hours previous night. The patient remains confused, somewhat lethargic in the evening, did well, better in the morning. Review of Systems: No CV, , pulmonary, eye, ENT system symptoms on review. Reliability poor. Mental Status Exam: The patient is oriented to himself. Insight and judgment, recent and remote memory, attention and concentration, fund of knowledge is poor consistent with his diagnosis. Laboratory Data: Reviewed. Impression: Major neurocognitive disorder Alzheimer vascular with delusion, depression, behavioral disturbance. Anxiety disorder unspecified. Impulse cont rol disorder unspecified. Plan: No change from initial note. Assessment: Vital Signs/I&O: Vital Signs Date Time Temp Pulse Resp B/P (MAP) Pulse Ox O2 Delivery O2 Flow Rate FiO2 05/02/20 15: 96.8 68 16 120/74 (89) 98 05/02/20 06:31 Room Air I & O 05/01/20 05/01/20 05/02/20 15:00 23:00 07:00 Intake Total 480 ml 200 ml 240 ml Balance 480 ml 200 ml 240 ml Current Medications: Meds: Current Medications Medications (Trade) Dose Ordered Sig/Afshin Route PRN Reason Start Time Stop Time Status Last Admin Dose Admin Acetaminophen (Tylenol) 650 mg PRN Q6HRS PRN PO MILD PAIN / TEMP > 100.3'F 04/14/20 15:00 04/27/20 11:08 Multi-Ingredient Ointment (Analgesic [place]) 1 aaron PRN QID PRN TP MUSCLE PAIN 04/14/20 15:00 Al Hydroxide/Mg Hydroxide (Mylanta Plus Xs) 15 ml PRN AFTMEALHC PRN PO DYSPEPSIA 04/14/20 15:00 Magnesium Hydroxide (Milk Of Magnesia) 2,400 mg PRN QHS PRN PO CONSTIPATION 04/14/20 15:00 Allopurinol (Zyloprim) 100 mg HS PO 04/14/20 21:00 05/02/20 20:29 Amlodipine Besylate (Norvasc) 10 mg DAILY PO 04/15/20 09:00 04/19/20 18:30 DC 04/19/20 10:18 Aripiprazole (Abilify) 2 mg DAILY PO 04/15/20 09:00 04/16/20 17:08 DC 04/16/20 10:00 Aspirin (Aspirin Chewable) 81 mg DAILYWBKFT PO 04/15/20 08:00 05/02/20 09:32 Azelastine HCl (Astelin) 2 spray BID NS 04/14/20 21:00 05/02/20 20:29 Bupropion HCl (Wellbutrin Xl) 150 mg DAILY PO 04/15/20 09:00 05/02/20 09:33 Chlorthalidone (Thalitone) 25 mg DAILY PO 04/15/20 09:00 04/19/20 18:30 DC 04/19/20 10:18 Clopidogrel Bisulfate (Plavix) 75 mg QHS PO 04/14/20 21:00 05/02/20 20:25 Coenzyme Q10 (Coenzyme Q10) 50 mg DAILY PO 04/15/20 09:00 05/02/20 09:32 Finasteride (Proscar) 5 mg DAILY PO 04/15/20 09:00 04/29/20 10:30 DC 04/29/20 06:07 Levothyroxine Sodium (Synthroid) 100 mcg DAILY06 PO 04/15/20 06:00 05/02/20 05:32 Losartan Potassium (Cozaar) 50 mg DAILY PO 04/15/20 09:00 04/19/20 14:20 DC 04/19/20 10:19 Metoprolol Succinate (Toprol Xl) 100 mg DAILY PO 04/15/20 09:00 05/02/20 09:33 Fish Oil (Fish Oil) 1,000 mg DAILY PO 04/15/20 09:00 04/25/20 16:19 DC 04/23/20 07:57 Quetiapine Fumarate (SEROquel) 50 mg QHS PO 04/14/20 21:00 04/14/20 16:15 DC Vitamin D (Vitamin D3) 50,000 unit WEEKLY PO 04/21/20 09:00 04/28/20 12:31 Colchicine (Colcrys) 0.6 mg PRN DAILY PRN PO for GOUT pain 04/14/20 15:30 Diclofenac Sodium (Voltaren) 1 aaron PRN QID PRN TP PAIN 04/14/20 15:30 Nitroglycerin (Nitrostat) 0.4 mg PRN Q5MIN PRN SL CHEST PAIN 04/14/20 15:30 Melatonin (Melatonin) 3 mg PRN QHS PRN PO INSOMNIA 04/14/20 15:30 04/30/20 20:41 Clonazepam (KlonoPIN) 0.25 mg BID PO 04/14/20 21:00 04/15/20 15:46 DC 04/15/20 09:12 Clonazepam (KlonoPIN) 0.25 mg QHS PO 04/15/20 21:00 04/17/20 23:01 DC 04/17/20 21:10 Sertraline HCl (Zoloft) 50 mg DAILY PO 04/16/20 09:00 04/20/20 23:59 DC 04/20/20 08:19 Olanzapine (ZyPREXA ZYDIS) 2.5 mg PRN Q2HR PRN PO PSYCHOSIS 04/16/20 13:15 05/02/20 15:39 Quetiapine Fumarate (SEROquel) 12.5 mg TID@0900,1300,1700 PO 04/17/20 09:00 04/20/20 17:08 DC 04/20/20 11:33 Sertraline HCl (Zoloft) 75 mg DAILY PO 04/18/20 09:00 04/18/20 07:37 DC Sertraline HCl (Zoloft) 75 mg DAILY PO 04/18/20 09:00 04/18/20 08:23 DC Sertraline HCl (Zoloft) 75 mg DAILY PO 04/21/20 09:00 04/23/20 09:00 DC 04/23/20 07:57 Quetiapine Fumarate (SEROquel) 12.5 mg 1300,1700 PO 04/20/20 17:15 04/26/20 18:19 DC 04/26/20 16:54 Quetiapine Fumarate (SEROquel) 25 mg DAILY PO 04/21/20 09:00 04/26/20 18:19 DC 04/26/20 08:08 Sertraline HCl (Zoloft) 100 mg DAILY PO 04/24/20 09:00 05/02/20 09:33 Quetiapine Fumarate (SEROquel) 12.5 mg 0600,0900,1300,1700 PO 04/27/20 06:00 04/27/20 07:31 DC Quetiapine Fumarate (SEROquel) 12.5 mg 0600,1300,1700 PO 04/27/20 13:00 05/02/20 18:20 DC 05/02/20 17:07 Quetiapine Fumarate (SEROquel) 25 mg DAILY PO 04/27/20 09:00 05/02/20 18:20 DC 05/02/20 09:35 Quetiapine Fumarate (SEROquel) 25 mg 0900,1300 PO 05/03/20 09:00 Quetiapine Fumarate (SEROquel) 12.5 mg 0600,1700 PO 05/03/20 06:00 I have reviewed the current psychotropics carefully including drug interactions. Risk benefit ratio favors no change other than as noted in my dictated progress note. Diagnosis: Problems: (1) Major neurocognitive disorder (2) Impulse control disorder, unspecified (3) Anxiety disorder, unspecified (4) Dementia, vascular, with depression (5) Dementia, vascular, with delusions (6) Dementia in Alzheimer's disease with depression (7) Dementia in Alzheimer's disease with delusions (8) Dementia of the Alzheimer's type with early onset with behavioral disturbance RENITA SAGASTUME MD May 02, 2020 21:18
--- NOTE | 2020-05-02 21:36 | PDOC ---
Exam Note: Miguel Note: Please also refer to the separate dictated note~for this date of service dictated separately.~Patient seen individually. Discussed the patient with Nursing staff reviewed the chart.~Reviewed interim history and current functioning. Reviewed vital signs,~Labs/ Radiology~and current medications noted below. Continue current treatment with the changes noted in the dictated addendum note Assessment: Vital Signs/I&O: Vital Signs Date Time Temp Pulse Resp B/P (MAP) Pulse Ox O2 Delivery O2 Flow Rate FiO2 05/02/20 15:21 96.8 68 16 120/74 (89) 98 05/02/20 06:31 Room Air I & O 05/01/20 05/01/20 05/02/20 15:00 23:00 07:00 Intake Total 480 ml 200 ml 240 ml Balance 480 ml 200 ml 240 ml Current Medications: I have reviewed the current psychotropics carefully including drug interactions. Risk benefit ratio favors no change other than as noted in my dictated progress note. Diagnosis: Problems: (1) Major neurocognitive disorder (2) Impulse control disorder, unspecified (3) Anxiety disorder, unspecified (4) Dementia, vascular, with depression (5) Dementia, vascular, with delusions (6) Dementia in Alzheimer's disease with depression (7) Dementia in Alzheimer's disease with delusions (8) Dementia of the Alzheimer's type with early onset with behavioral disturbance RENITA SAGASTUME MD May 02, 2020 21:36
[2020-05-02] MEDS ORDERED: ACET325T21 PO (22:40)
[2020-05-02] MEDS ORDERED: CHOL500021 PO (22:44)
[2020-05-02] MEDS ORDERED: COLC0.6T34 PO (22:44)
[2020-05-02] MEDS ORDERED: DICL100G18 TP (22:46)
[2020-05-02] MEDS ORDERED: MAG-115 PO (22:47)
[2020-05-02] MEDS ORDERED: MAGN24003 PO (22:48)
[2020-05-02] MEDS ORDERED: MELA3TAB43 PO (22:49)
[2020-05-02] MEDS ORDERED: METH28OI2 TP (22:50)
[2020-05-02] MEDS ORDERED: METO-247 PO (22:51)
[2020-05-02] MEDS ORDERED: NITR0.4T24 SL (23:31)
[2020-05-02] MEDS ORDERED: OLAN5TAB99 PO (23:33)
[2020-05-02] MEDS ORDERED: QUET50TA5 PO (23:35)
[2020-05-02] MEDS ORDERED: SERT100T PO (23:36)
[2020-05-02] MEDS ORDERED: UBID50TA PO (23:37)
[2020-05-02] MEDS ORDERED: BUPR150T15 PO (23:38)
[2020-05-03] MEDS: MELATONIN 3 MG TABLET PO PRN (00:26)
[2020-05-03] MEDS ORDERED: QUEtiapine 25 MG TABLET. PO SCH (06:00)
[2020-05-03] MEDS: LEVOTHYROXINE 100 MCG TABLET PO SCH (06:16)
[2020-05-03 06:24] VITALS: BP 186/78
[2020-05-03 06:41] VITALS: BP 186/78
[2020-05-03] MEDS: METOPROLOL SUCC 24HR ER 50 MG TAB.ER.24H. PO SCH (06:41)
[2020-05-03] MEDS: UBIDECARENONE 50 MG CAPSULE. PO SCH (08:05)
[2020-05-03] MEDS: QUEtiapine 25 MG TABLET. PO SCH ×2 (08:05→13:05)
[2020-05-03] MEDS: buPROPion XL 150 MG TAB.ER.24H PO SCH (08:05)
[2020-05-03] MEDS: ASPIRIN CHEWABLE 81 MG TABLET. PO SCH (08:05)
[2020-05-03] MEDS: SERTRALINE 100 MG TABLET. PO SCH (08:05)
[2020-05-03] MEDS: AZELASTINE NASAL SPRAY 30ML BOTTLE. NS SCH (08:06)
--- NOTE | 2020-05-03 09:09 | PDOC ---
Exam Note: Miguel Note: This note is a late entry for 05/02/2020 covers elements not covered in my initial note. Subjective: The patient was seen face to face in the evening of 05/02/2020 with Bridgette BAY, reviewed the chart. He slept 6 hours previous night. Overall the patient remains confused, gets agitated around 3 p.m. Review of Systems: No CV, , pulmonary, eye, ENT system symptoms on review. Mental Status Exam: The patient is oriented to himself. Insight and judgment, recent and remote memory, attention and concentration, fund of knowledge is poor consistent with his diagnosis. Laboratory Data: Reviewed. Impression: Major neurocognitive disorder Alzheimer vascular with delusion, depression, behavioral disturbance. Anxiety disorder unspecified. Impulse control disorder unspecified. Plan: The patient is currently on Seroquel 12.5 mg 0600 hours, 1300 hours, 1700 hours, and 25 mg 0900 hours. We will make the 1300 hours dosage to 25 mg to help with 3 p.m. agitation which seems fairly consistent. Continue Zoloft, melatonin, Wellbutrin unchanged for now. Assessment: Vital Signs/I&O: Vital Signs Date Time Temp Pulse Resp B/P (MAP) Pulse Ox O2 Delivery O2 Flow Rate FiO2 05/03/20 06:41 62 186/78 05/03/20 06:24 98.3 16 99 05/02/20 06:31 Room Air I & O 05/02/20 05/02/20 05/03/20 15:00 23:00 07:00 Intake Total 840 ml 720 ml Balance 840 ml 720 ml Current Medications: Meds: Current Medications Medications (Trade) Dose Ordered Sig/Afshin Route PRN Reason Start Time Stop Time Status Last Admin Dose Admin Quetiapine Fumarate (SEROquel) 25 mg 0900,1300 PO 05/03/20 09:00 05/03/20 08:05 Quetiapine Fumarate (SEROquel) 12.5 mg 0600,1700 PO 05/03/20 06:00 05/03/20 06:16 I have reviewed the current psychotropics carefully including drug interactions. Risk benefit ratio favors no change other than as noted in my dictated progress note. Diagnosis: Problems: (1) Major neurocognitive disorder (2) Impulse control disorder, unspecified (3) Anxiety disorder, unspecified (4) Dementia, vascular, with depression (5) Dementia, vascular, with delusions (6) Dementia in Alzheimer's disease with depression (7) Dementia in Alzheimer's disease with delusions (8) Dementia of the Alzheimer's type with early onset with behavioral disturbance RENITA SAGASTUME MD May 03, 2020 09:09
[2020-05-03] MEDS ORDERED: QUET25TA5 PO (12:37)
--- NOTE | 2020-05-03 21:40 | DS ---
DATE OF DISCHARGE: 05/03/2020 DISCHARGE SUMMARY/PSYCHIATRIC PROGRESS NOTE This note covers elements not covered in my initial note of 05/03/2020. REASON FOR ADMISSION: Please refer to the admission history for details. Briefly, the patient is an 84-year-old male referred to us from [facility], which is a small nursing home setting on account of attempting to elope from the facility. He was delusional and paranoid, thought he was being held prisoner. He was threatening to harm the staff members, agitated, exit seeking, having marked insomnia and sundowning. This is within the context of his diagnosis of major neurocognitive disorder, Alzheimer, vascular with delusion, depression, behavioral disturbance. He had failed outpatient psychiatric interventions. Behaviors were deemed dangerous, unmanageable resulting in this referral. SIGNIFICANT FINDINGS AND CLINICAL COURSE: Following admission, the patient was seen daily individually by myself from a psychiatric standpoint, medical followup with Dr. Kraus/Dr. Gottlieb. The patient was quite confused, anxious, restless, attempting to elope. Adjustments were made in his psychotropics. He seemed to respond to a combination of Wellbutrin-XL 150 mg a day; Zoloft 75 mg a day; Zyprexa p.r.n.; melatonin 3 mg at bedtime p.r.n.; Seroquel 12.5 mg at 0600 and 1700, 25 mg 0900 and 1300. REVIEW OF SYSTEMS: Prior to discharge on 05/03/2020, no CV, , pulmonary, eye, ENT system symptoms on review. Reliability poor. MENTAL STATUS EXAM: Oriented to himself. Insight, judgment, recent and remote memory, attention, concentration, fund of knowledge poor, consistent with his diagnosis. FINAL DIAGNOSES: Major neurocognitive disorder, Alzheimer, vascular with delusion, depression, behavioral disturbance; anxiety disorder, unspecified; impulse control disorder, unspecified. Rest unchanged from admission. DISCHARGE MEDICATIONS: Please refer to the [facility]. DISCHARGE INSTRUCTIONS: [facility]up at the [facility]. Time for discharge day management greater than 30 minutes. MAN Rosio SAGASTUME MD DR: DALJIT/bruce JOB#: [id number] / [id number]
--- NOTE | 2020-05-04 08:44 | PDOC ---
Exam Note: Miguel Note: This is a late entry for 05/03/2020. Please also refer to the separate dictated note~for this date of service dictated separately.~Patient seen individually. Discussed the patient with Nursing staff reviewed the chart.~Reviewed interim history and current functioning. Reviewed vital signs,~Labs/ Radiology~and cur rent medications noted below. Continue current treatment with the changes noted in the dictated addendum note Assessment: Vital Signs/I&O: Vital Signs Date Time Temp Pulse Resp B/P (MAP) Pulse Ox O2 Delivery O2 Flow Rate FiO2 05/03/20 06:41 62 186/78 05/03/20 06:24 98.3 16 99 05/02/20 06:31 Room Air l I & O 05/03/20 05/03/20 05/04/20 14:59 22:59 06:59 Intake Total 600 ml Balance 600 ml Current Medications: Meds: Current Medications Medications (Trade) Dose Ordered Sig/Afshin Route PRN Reason Start Time Stop Time Status Last Admin Dose Admin Acetaminophen (Tylenol) 650 mg PRN Q6HRS PRN PO MILD PAIN / TEMP > 100.3'F 04/14/20 15:00 05/03/20 14:39 DC 04/27/20 11:08 Multi-Ingredient Ointment (Analgesic Pease) 1 aaron PRN QID PRN TP MUSCLE PAIN 04/14/20 15:00 05/03/20 14:39 DC Al Hydroxide/Mg Hydroxide (Mylanta Plus Xs) 15 ml PRN AFTMEALHC PRN PO DYSPEPSIA 04/14/20 15:00 05/03/20 14:39 DC Magnesium Hydroxide (Milk Of Magnesia) 2,400 mg PRN QHS PRN PO CONSTIPATION 04/14/20 15:00 05/03/20 14:39 DC Allopurinol (Zyloprim) 100 mg HS PO 04/14/20 21:00 05/03/20 14:39 DC 05/02/20 20:29 Amlodipine Besylate (Norvasc) 10 mg DAILY PO 04/15/20 09:00 04/19/20 18:30 DC 04/19/20 10:18 Aripiprazole (Abilify) 2 mg DAILY PO 04/15/20 09:00 04/16/20 17:08 DC 04/16/20 10:00 Aspirin (Aspirin Chewable) 81 mg DAILYWBKFT PO 04/15/20 08:00 05/03/20 14:39 DC 05/03/20 08:05 Azelastine HCl (Astelin) 2 spray BID NS 04/14/20 21:00 05/03/20 14:39 DC 05/03/20 08:06 Bupropion HCl (Wellbutrin Xl) 150 mg DAILY PO 04/15/20 09:00 05/03/20 14:39 DC 05/03/20 08:05 Chlorthalidone (Thalitone) 25 mg DAILY PO 04/15/20 09:00 04/19/20 18:30 DC 04/19/20 10:18 Clopidogrel Bisulfate (Plavix) 75 mg QHS PO 04/14/20 21:00 05/03/20 14:39 DC 05/02/20 20:25 Coenzyme Q10 (Coenzyme Q10) 50 mg DAILY PO 04/15/20 09:00 05/03/20 14:39 DC 05/03/20 08:05 Finasteride (Proscar) 5 mg DAILY PO 04/15/20 09:00 04/29/20 10:30 DC 04/29/20 06:07 Levothyroxine Sodium (Synthroid) 100 mcg DAILY06 PO 04/15/20 06:00 05/03/20 14:39 DC 05/03/20 06:16 Losartan Potassium (Cozaar) 50 mg DAILY PO 04/15/20 09:00 04/19/20 14:20 DC 04/19/20 10:19 Metoprolol Succinate (Toprol Xl) 100 mg DAILY PO 04/15/20 09:00 05/03/20 14:39 DC 05/03/20 06:41 Fish Oil (Fish Oil) 1,000 mg DAILY PO 04/15/20 09:00 04/25/20 16:19 DC 04/23/20 07:57 Quetiapine Fumarate (SEROquel) 50 mg QHS PO 04/14/20 21:00 04/14/20 16:15 DC Vitamin D (Vitamin D3) 50,000 unit WEEKLY PO 04/21/20 09:00 05/03/20 14:39 DC 04/28/20 12:31 Colchicine (Colcrys) 0.6 mg PRN DAILY PRN PO for GOUT pain 04/14/20 15:30 05/03/20 14:39 DC Diclofenac Sodium (Voltaren) 1 aaron PRN QID PRN TP PAIN 04/14/20 15:30 05/03/20 14:39 DC Nitroglycerin (Nitrostat) 0.4 mg PRN Q5MIN PRN SL CHEST PAIN 04/14/20 15:30 05/03/20 14:39 DC Melatonin (Melatonin) 3 mg PRN QHS PRN PO INSOMNIA 04/14/20 15:30 05/03/20 14:39 DC 05/03/20 00:26 Clonazepam (KlonoPIN) 0.25 mg BID PO 04/14/20 21:00 04/15/20 15:46 DC 04/15/20 09:12 Clonazepam (KlonoPIN) 0.25 mg QHS PO 04/15/20 21:00 04/17/20 23:01 DC 04/17/20 21:10 Sertraline HCl (Zoloft) 50 mg DAILY PO 04/16/20 09:00 04/20/20 23:59 DC 04/20/20 08:19 Olanzapine (ZyPREXA ZYDIS) 2.5 mg PRN Q2HR PRN PO PSYCHOSIS 04/16/20 13:15 05/03/20 14:39 DC 05/03/20 00:26 Quetiapine Fumarate (SEROquel) 12.5 mg TID@0900,1300,1700 PO 04/17/20 09:00 04/20/20 17:08 DC 04/20/20 11:33 Sertraline HCl (Zoloft) 75 mg DAILY PO 04/18/20 09:00 04/18/20 07:37 DC Sertraline HCl (Zoloft) 75 mg DAILY PO 04/18/20 09:00 04/18/20 08:23 DC Sertraline HCl (Zoloft) 75 mg DAILY PO 04/21/20 09:00 04/23/20 09:00 DC 04/23/20 07:57 Quetiapine Fumarate (SEROquel) 12.5 mg 1300,1700 PO 04/20/20 17:15 04/26/20 18:19 DC 04/26/20 16:54 Quetiapine Fumarate (SEROquel) 25 mg DAILY PO 04/21/20 09:00 04/26/20 18:19 DC 04/26/20 08:08 Sertraline HCl (Zoloft) 100 mg DAILY PO 04/24/20 09:00 05/03/20 14:39 DC 05/03/20 08:05 Quetiapine Fumarate (SEROquel) 12.5 mg 0600,0900,1300,1700 PO 04/27/20 06:00 04/27/20 07:31 DC Quetiapine Fumarate (SEROquel) 12.5 mg 0600,1300,1700 PO 04/27/20 13:00 05/02/20 18:20 DC 05/02/20 17:07 Quetiapine Fumarate (SEROquel) 25 mg DAILY PO 04/27/20 09:00 05/02/20 18:20 DC 05/02/20 09:35 Quetiapine Fumarate (SEROquel) 25 mg 0900,1300 PO 05/03/20 09:00 05/03/20 14:39 DC 05/03/20 13:05 Quetiapine Fumarate (SEROquel) 12.5 mg 0600,1700 PO 05/03/20 06:00 05/03/20 14:39 DC 05/03/20 06:16 Current Medications Medications (Trade) Dose Ordered Sig/Afshin Route PRN Reason Start Time Stop Time Status Last Admin Dose Admin Quetiapine Fumarate (SEROquel) 25 mg 0900,1300 PO 05/03/20 09:00 05/03/20 14:39 DC 05/03/20 13:05 I have reviewed the current psychotropics carefully including drug interactions. Risk benefit ratio favors no change other than as noted in my dictated progress note. 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
== END 2020-05-03 13:15 | DRG 57 ==
LOC: GEROPSY 14:03
PROVIDERS: ADMIT Psychiatry & Neurology Psychiatry; ATTEND Psychiatry & Neurology Psychiatry
DX: G30.9 Alzheimer's disease, unspecified (principal); F05 Delirium due to known physiological condition; N18.30 Chronic kidney disease, stage 3 unspecified; F01.51 Vascular dementia, unspecified severity, with behavioral disturbance; F02.81 Dementia in other diseases classified elsewhere, unspecified severity, with behavioral disturbance; F32.9 Major depressive disorder, single episode, unspecified; M10.9 Gout, unspecified; G47.00 Insomnia, unspecified; E03.9 Hypothyroidism, unspecified; I25.10 Atherosclerotic heart disease of native coronary artery without angina pectoris; I12.9 Hypertensive chronic kidney disease with stage 1 through stage 4 chronic kidney disease, or unspecified chronic kidney disease; N40.0 Benign prostatic hyperplasia without lower urinary tract symptoms; G89.29 Other chronic pain; R29.6 Repeated falls; Z96.649 Presence of unspecified artificial hip joint; F63.9 Impulse disorder, unspecified; E78.5 Hyperlipidemia, unspecified; F41.9 Anxiety disorder, unspecified; Z20.822 Contact with and (suspected) exposure to COVID-19; M35.3 Polymyalgia rheumatica; Z87.01 Personal history of pneumonia (recurrent); Z79.899 Other long term (current) drug therapy; I25.2 Old myocardial infarction; Z91.81 History of falling; Z95.0 Presence of cardiac pacemaker; Z87.820 Personal history of traumatic brain injury
CPT/HCPCS: 36415; 70450; 80053; 80061; 81001; 82306; 82607; 82947; 83036; 83540; 83550; 83735; 84436; 84443; 84480; 85025; 85379; 86592; 93005; U0003; 97110; 97116; 97530